=== PATIENT | male | born 1955 | race American Indian/Alaskan Native ===

== ENCOUNTER 2020-02-15 13:55 | Inpatient (IN) | payer MEDICARE ==
[2020-02-15] MEDS ORDERED: SODIUM CHLORIDE 0.9% 1000 ML 2,000 ML IV ONE (14:43)
[2020-02-15] MEDS ORDERED: fentaNYL 100 MCG/2 ML INJ IV ONE ×2 (14:44→16:19)
--- NOTE | 2020-02-15 14:44 | Emergency Department Report ---
ED General Adult HPI - General Chief complaint: Abdominal Pain Stated complaint: ABD PAIN PUI?: No Time Seen by Provider: 02/15/20 14:25 Source: patient, EMS ( EMS documentation not available at time of chart dictation ), RN notes reviewed, old records reviewed Mode of arrival: Stretcher Limitations: No Limitations - History of Present Illness Initial comments: Patient is a 64-year-old gentleman. He has a complicated past medical history. He has a known history of infrarenal aortic aneurysm with partial dissection. He also has a history of penile prosthesis. He had an outpatient CT scan of the abdomen pelvis performed recently, for nonspecific abdominal pain, which was a technically inadequate study, secondary to lack of IV contrast. He presents to the ER today with a complaint of diffuse abdominal pain, initially without nausea or vomiting.. He denies headache, neck pain, chest pain, shortness of breath, hematemesis, bright red blood per rectum. He also thinks that he is "constipated." He denies extremity weakness and or numbness. He reports decrease stool, but is passing gas intermittently. Symptoms present over the past few days, and gradually getting worse. He does not describe exacerbating or relieving factors. At the moment, he is not nauseous or vomiting. -: Gradual, days(s) Location: abdomen Severity scale (0 -10): 10 Consistency: constant Improves with: none Worsens with: none - Related Data Home Medications Medication Instructions Recorded Confirmed Last Taken AtorvaSTATin 40 mg PO QHS 02/15/20 02/15/20 Unknown Metoprolol Succinate 50 mg PO BID 02/15/20 02/15/20 Unknown Allergies Allergy/AdvReac Type Severity Reaction Status Date / Time No Known Allergies Allergy Unverified 07/16/18 09:51 ED Review of Systems ROS: Stated complaint: ABD PAIN Other details as noted in HPI Constitutional: weakness. denies: fever Eyes: denies: eye discharge ENT: denies: epistaxis Respiratory: denies: cough Cardiovascular: denies: chest pain Gastrointestinal: abdominal pain, constipation Genitourinary: denies: dysuria, testicular pain Musculoskeletal: denies: back pain Skin: denies: lesions Neurological: weakness Psychiatric: as per HPI Hematological/Lymphatic: as per HPI ED Past Medical Hx - Past Medical History Previous Medical History?: Yes Hx Hypertension: Yes Hx Congestive Heart Failure: No Hx Diabetes: No Hx Asthma: No Hx COPD: No Additional medical history: Constipation, Left eye prosthesis, Penile implant, aortic aneurysm repair - Surgical History Past Surgical History?: Yes Additional Surgical History: left eye surgery, Penile surgery, aortic aneurysm repair - Social History Smoking Status: Never Smoker Substance Use Type: None - Medications Home Medications: Home Medications Medication Instructions Recorded Confirmed Last Taken Type AtorvaSTATin 40 mg PO QHS 02/15/20 02/15/20 Unknown History Metoprolol Succinate 50 mg PO BID 02/15/20 02/15/20 Unknown History ED Physical Exam - General Limitations: No Limitations General appearance: alert, anxious - Head Head exam: Present: atraumatic, normocephalic - Eye Eye exam: Present: normal appearance, EOMI. Absent: nystagmus - ENT ENT exam: Present: normal exam, mucous membranes dry, normal external ear exam - Neck Neck exam: Present: normal inspection, full ROM. Absent: tenderness, meningismus - Respiratory Respiratory exam: Present: normal lung sounds bilaterally. Absent: respiratory distress, wheezes, rales, rhonchi, stridor - Cardiovascular Cardiovascular Exam: Present: tachycardia, irregular rhythm, normal heart sounds. Absent: systolic murmur, diastolic murmur, rubs, gallop - GI/Abdominal GI/Abdominal exam: Present: soft, distended, diminished bowel sounds. Absent: tenderness, guarding, rebound, rigid, pulsatile mass - Rectal Rectal exam: Present: deferred - Extremities Exam Extremities exam: Present: normal inspection, full ROM, other (2+ femoral pulses noted bilaterally. Weakened pulses noted in the bilateral upper and lower extremities. Pelvis is stable. No long bony tenderness. Delayed capillary refill). Absent: normal capillary refill (Delayed capillary refill), calf tenderness - Back Exam Back exam: Present: normal inspection, full ROM. Absent: tenderness, CVA tenderness (R), CVA tenderness (L), paraspinal tenderness, vertebral tenderness - Neurological Exam Neurological exam: Present: alert, other (No facial droop. Tongue midline. Extraocular movements intact bilaterally. Facial sensation intact to light touch in V1, V2, V3 distribution bilaterally. 5 and a 5 strength in 4 e xtremities. Sensation intact to light touch in 4 extremities.). Absent: motor sensory deficit - Psychiatric Psychiatric exam: Present: flat affect - Skin Skin exam: Present: warm, dry, intact, normal color. Absent: rash ED Course Vital Signs 02/15/20 02/15/20 02/15/20 14:31 15:32 16:00 Temperature 98.6 F Pulse Rate 110 H 81 87 Respiratory 24 13 21 Rate Blood Pressure 117/85 Blood Pressure 90/70 [Left] O2 Sat by Pulse 97 62 L Oximetry 02/15/20 02/15/20 02/15/20 16:30 16:40 16:50 Temperature Pulse Rate 75 74 90 Respiratory 28 H 15 15 Rate Blood Pressure 116/63 116/63 116/63 Blood Pressure [Left] O2 Sat by Pulse 100 Oximetry 02/15/20 02/15/20 02/15/20 17:00 17:10 17:20 Temperature Pulse Rate 79 82 85 Respiratory 15 24 16 Rate Blood Pressure 124/80 124/80 124/80 Blood Pressure [Left] O2 Sat by Pulse Oximetry 02/15/20 02/15/20 02/15/20 17:30 17:40 17:50 Temperature Pulse Rate 84 83 89 Respiratory 13 18 21 Rate Blood Pressure 126/90 126/90 126/90 Blood Pressure [Left] O2 Sat by Pulse 77 L Oximetry 02/15/20 02/15/20 02/15/20 18:00 18:10 18:20 Temperature Pulse Rate 77 86 83 Respiratory 15 19 16 Rate Blood Pressure 138/84 138/84 138/84 Blood Pressure [Left] O2 Sat by Pulse 93 Oximetry 02/15/20 02/15/20 02/15/20 18:30 18:40 18:41 Temperature Pulse Rate 83 80 83 Respiratory 18 14 18 Rate Blood Pressure 119/86 119/86 Blood Pressure 119/86 [Left] O2 Sat by Pulse Oximetry 02/15/20 02/15/20 02/15/20 18:50 19:00 19:10 Temperature Pulse Rate 79 80 79 Respiratory 23 18 11 L Rate Blood Pressure 119/86 116/88 116/88 Blood Pressure [Left] O2 Sat by Pulse 93 94 Oximetry 02/15/20 02/15/20 02/15/20 19:20 19:30 19:40 Temperature Pulse Rate 81 75 81 Respiratory 17 20 21 Rate Blood Pressure 116/88 125/84 125/84 Blood Pressure [Left] O2 Sat by Pulse 94 94 Oximetry 02/15/20 19:50 Temperature Pulse Rate 73 Respiratory 16 Rate Blood Pressure 125/84 Blood Pressure [Left] O2 Sat by Pulse 88 Oximetry - EJ/Peripheral Line Arm R Time Out Performed: Yes Indications: nurses unable to establis Skin Cleansed in Sterile Fashion: Yes Size: 20 Dressing Placed: Tegaderm Patient Tolerated Procedure: well ED Medical Decision Making - Lab Data Result diagrams: 02/16/20 05:26 02/17/20 08:02 Vital Signs 02/15/20 02/15/20 02/15/20 14:31 15:32 16:00 Temperature 98.6 F Pulse Rate 110 H 81 87 Respiratory 24 13 21 Rate Blood Pressure 117/85 Blood Pressure 90/70 [Left] O2 Sat by Pulse 97 62 L Oximetry Lab Results 02/15/20 02/15/20 02/15/20 Range/Units 15:45 15:45 15:45 PT TNR INR TNR APTT TNR Sodium 148 H (137-145) mmol/L Chloride 136.8 H (98-107) mmol/L BUN 9 (9-20) mg/dL Creatinine 0.2 L (0.8-1.5) mg/dL Estimated GFR > 60 ml/min BUN/Creatinine Ratio 45 % Lactic Acid 0.40 L (0.7-2.0) mmol/L Total Bilirubin < 0.20 (0.1-1.2) mg/dL Alkaline Phosphatase 6 L (35-129) units/L Total Protein 0.8 L (6.3-8.2) g/dL Albumin 0.5 L (3.9-5) g/dL Albumin/Globulin Ratio 1.7 % - EKG Data 02/15/20 17:08 EKG shows sinus rhythm, 76 bpm, normal axis, QTC is prolonged, left ventricular hypertrophy, and motion artifact. The EKG is abnormal. It is not a STEMI. There is no prior EKG available for my comparison - Radiology Data Radiology results: report reviewed, image reviewed Print Report Referring Physician: EMANUEL NORIEGA Patient Name: DARÍO SANTILLAN Date of : 1955 Sex: Male Report Date: 2020-02-15 Report Status: Finalized Findings [facility] [address] [place] [address] Cat Scan Report Signed Patient: DARÍO SANTILLAN MR#: [id number] : 1955 Acct:[id number] Age/Sex: 64 / M ADM Date: 02/15/20 Loc: ED Attending Dr: Ordering Physician: EMANUEL NORIEGA MD Date of Service: 02/15/20 Procedure(s): CT angio abdomen pelvis Accession Number(s): [id number] cc: EMANUEL NORIEGA MD CTA ABDOMEN AND PELVIS WITH IV CONTRAST INDICATION: History of aortic aneurysm, abdominal pain CONTRAST: 100 cc Omnipaque 300 IV COMPARISON: Partial images sets from CT abdomen and pelvis 07/17/2018 and CTA abdomen and pelvis 07/18/2018 Three-plane MIP reconstructions were produced. All CT scans at this location are performed using CT dose reduction for ALARA by means of automated exposure control. FINDINGS: Mild atelectasis and/or scarring is seen in the lung bases, more on the right. No pneumoperitoneum is seen. Interval revision of the penile prosthesis apparatus is noted with now a catheter and apparent balloon pump extending into the left lower lateral abdominal wall subcutaneous tissues. In this subcutaneous area adjacent to the device is a somewhat serpiginous fluid collection which is presumably part of the inflation balloon. Though somewhat resembling a loop of bowel shape, I do not see a definite herniation of bowel through this area. No urinary obstructive changes are seen. No masses are obvious. Gallbladder and bile ducts appear within normal limits. No free fluid is seen. The lower abdominal aortic aneurysm and dissection is now less prominent and there are interval surgical changes in this area. The dissection is similar in appearance and less extensive and the prominent saccular aneurysm which measured up to a diameter of 7 cm previously now shows a maximal diameter of 3.9 cm. The tortuous and ectatic common iliac arteries are again seen similar to prior study with flow seen more distally in the iliac system though tapering inferiorly, thought likely due to the phase of contrast in this very early contrast phase with significant contrast left in the heart at this point. I do not see extravasation or other obvious acute abnormality of the aorta or vascular structures. Good opacification of the major aortic branches is seen without obvious significant stenosis though there is mild narrowing of the proximal portion of the left renal artery. Left renal artery shows a small accessory artery as well. The mesenteric vessels appear well opacified. The stomach is prominently dilated with fluid, food, and air, predominantly fluid. There is prominent dilatation of the proximal half of the small bowel with air- fluid levels seen. Distal small bowel loops are not dilated. Colon is mostly decompressed. Pattern is consistent with high-grade small bowel obstruction of u nclear source. The rectum may show mild wall edema as can be seen with proctitis and was not obvious previously. No evidence of perforation or abscess is seen. IMPRESSION: 1. Significant improvement in appearance of the lower abdominal aortic dissection and saccular aneurysm with interval surgical change. No acute aortic abnormality is seen. 2. Evidence of high-grade mid level small bowel obstruction 3. Interval surgical changes in the pelvis as above. The subcutaneous fluid collection presumably relates to a balloon apparatus with fluid for the penile pump. 4. Question of mild proctitis Discussed with Dr. Noriega Signer Name: Richard Friend MD Signed: 02/15/2020 4:43 PM Workstation Name: [id number] Transcribed By: JAIRO Dictated By: Richard Friend MD Electronically Authenticated By: Richard Friend MD Signed Date/Time: 02/15/20 1643 DD/ 1632 TD/TT: - Medical Decision Making Differential diagnosis, including but not limited to: Aortic dissection, AAA, obstruction Assessment and plan: 64-year-old gentleman with complex abdominal surgical history, presenting with abdominal pain, initially hypotensive, blood pressure in the 90s, initially tachycardic on my exam, heart rate in the 130s, with thready pulses. We were initially very concerned about aortic catastrophe. Therefore, we recommended emergent CT angiogram of the abdomen pelvis to further evaluate. Risks, benefits, alternatives discussed with patient extensively. He gave verbal consent for emergent CT scan with IV contrast to evaluate for aortic catastrophe. I specifically counseled the patient about the risks of renal insufficiency, and possible need for hemodialysis downstream, however, I also advised patient that given his initial hypotension, thready pulses, hemodynamic instability initially, we needed to obtain expedited and definitive diagnostic imaging. Therefore, the patient provided verbal and written consent for CT angiogram with IV contrast. This was witnessed by multiple ER staff members, including Mr. Arnoldo Romero. Fortunately, no aortic emergent condition was noted. However, he was noted to have a high-grade small bowel obstruction. In addition, he is now actively vomiting. We will treat his symptoms with fluids, pain medication, and nausea medication. Advised patient that we would recommend admission to the hospital for supportive care. Contacted general surgery on-call, Dr. Escalera, discussed the patient's history, physical, and pertinent imaging studies. Nasogastric tube to be ordered. Discussed findings with patient, who verbalized understanding. He states he is amenable to hospitalization. Hospital physician, Dr. Darnell to admit patient to the medical service. He was found to have renal insufficiency, likely multifactorial. Contacted nephrology on-call, Dr. Randall, his group will follow in consultation. Critical Care Time: Yes Critical care time in (mins) excluding proc time.: 35 Critical care attestation.: If time is entered above; I have spent that time in minutes in the direct care of this critically ill patient, excluding procedure time. Critical Care Time: Critical care time includes multiple bedside re-evaluations, interpretation of laboratory studies, current radiology studies, prior radiology studies, discussion with multiple consulting services, including general surgery, hospital medicine, and nephrology. This does not include procedure time. ED Disposition Clinical Impression: SBO (small bowel obstruction), Renal insufficiency, Hypokalemia Disposition: OP ADMIT IP TO THIS HOSP Is pt being admited?: Yes Does the pt Need Aspirin: No Condition: Serious
[2020-02-15] MEDS ORDERED: MORPHINE 4 MG/1 ML INJ IV ONE (16:05)
[2020-02-15] MEDS ORDERED: LIDOCAINE (4%) 40 MG/ML TOPICAL SOLN 50 ML BOTTLE TP ONE (16:06)
[2020-02-15] MEDS ORDERED: LIDOCAINE VISCOUS 2% 15 ML ORAL LIQD PO ONE (16:06)
[2020-02-15 16:20] LABS: INR TNR (0.87-1.13); Partial Thromboplastin Time TNR Sec. (24.2-36.6)
[2020-02-15] MEDS ORDERED: ONDANSETRON 4 MG/2 ML INJ IV ONE (16:38)
--- NOTE | 2020-02-15 16:48 | Cat Scan Report ---
CTA ABDOMEN AND PELVIS WITH IV CONTRAST INDICATION: History of aortic aneurysm, abdominal pain CONTRAST: 100 cc Omnipaque 300 IV COMPARISON: Partial images sets from CT abdomen and pelvis 07/17/2018 and CTA abdomen and pelvis 07/07 Three-plane MIP reconstructions were produced. All CT scans at this location are performed using CT d ose reduction for ALARA by means of automated exposure control. FINDINGS: Mild atelectasis and/or scarring is seen in the lung bases, more on the right. No pneumoper itoneum is seen. Interval revision of the penile prosthesis apparatus is noted with now a catheter an d apparent balloon pump extending into the left lower lateral abdominal wall subcutaneous tissues. In this subcutaneous area adjacent to the device is a somewhat serpiginous fluid collection which is pr esumably part of the inflation balloon. Though somewhat resembling a loop of bowel shape, I do not se e a definite herniation of bowel through this area. No urinary obstructive changes are seen. No masses are obvious. Gallbladder and bile ducts appear wit hin normal limits. No free fluid is seen. The lower abdominal aortic aneurysm and dissection is now less prominent and there are interval surgi sun changes in this area. The dissection is similar in appearance and less extensive and the prominen t saccular aneurysm which measured up to a diameter of 7 cm previously now shows a maximal diameter o f 3.9 cm. The tortuous and ectatic common iliac arteries are again seen similar to prior study with f low seen more distally in the iliac system though tapering inferiorly, thought likely due to the phas e of contrast in this very early contrast phase with significant contrast left in the heart at this p oint. I do not see extravasation or other obvious acute abnormality of the aorta or vascular structur es. Good opacification of the major aortic branches is seen without obvious significant stenosis thou gh there is mild narrowing of the proximal portion of the left renal artery. Left renal artery shows a small accessory artery as well. The mesenteric vessels appear well opacified. The stomach is prominently dilated with fluid, food, and air, predominantly fluid. There is prominent dilatation of the proximal half of the small bowel with air-fluid levels seen. Distal small bowel lo ops are not dilated. Colon is mostly decompressed. Pattern is consistent with high-grade small bowel obstruction of unclear source. The rectum may show mild wall edema as can be seen with proctitis and was not obvious previously. No evidence of perforation or abscess is seen. IMPRESSION: 1. Significant improvement in appearance of the lower abdominal aortic dissection and saccular aneury sm with interval surgical change. No acute aortic abnormality is seen. 2. Evidence of high-grade mid level small bowel obstruction 3. Interval surgical changes in the pelvis as above. The subcutaneous fluid collection presumably rel ates to a balloon apparatus with fluid for the penile pump. 4. Question of mild proctitis Discussed with Dr. Noriega Signer Name: Richard Friend MD Signed: 02/15/2020 4:43 PM Workstation Name: [id number]
[2020-02-15 16:56] LABS: Hemoglobin 15.3 gm/dl (11.8-15.2); Mean Corpuscular HGB Conc 35 % (32-34); Mean Corpuscular Volume 98 fl (84-94); Platelet Count 132 K/mm3 (140-440); Red Cell Distribution Width 13.2 % (13.2-15.2)
[2020-02-15 17:02] LABS: Blood Urea Nitrogen TNR mg/dL (9-20)
[2020-02-15 17:03] LABS: Alanine Aminotransferase TNR units/L (7-56); Albumin TNR g/dL (3.9-5); BUN/Creatinine Ratio TNR; Calcium TNR mg/dL (8.4-10.2); Hemolysis Index TNR
[2020-02-15 17:07] LABS: Calcium 8.6 mg/dL (8.4-10.2)
[2020-02-15 17:08] LABS: INR 1.47 (0.87-1.13)
[2020-02-15 17:09] LABS: Partial Thromboplastin Time 25.7 Sec. (24.2-36.6)
[2020-02-15] MEDS ORDERED: POTASSIUM CHLORIDE ER 20 MEQ TAB PO ONE (17:13)
[2020-02-15] MEDS ORDERED: SODIUM CHLORIDE 0.9% 1000 ML 1,000 ML IV ONE (17:14)
[2020-02-15 17:23] LABS: Albumin 3.7 g/dL (3.9-5); Bilirubin,Direct 0.3 mg/dL (0-0.2)
--- NOTE | 2020-02-15 18:29 | Consultation ---
History of Present Illness Consult date: 02/15/20 Reason for consult: abdominal pain Requesting physician: EMANUEL VARGAS Chief complaint: abdominal pain - History of present illness History of present illness: 64yo M with multiple medical issues presents from the primary care physician's office with complaints of abdominal pain, nausea and vomiting. Evaluation emergency department revealed a small bowel obstruction. General surgery was consulted. Patient reports that for the last few days he has had difficulty with crampy abdominal pain, nausea and vomiting. He has been passing small amounts of flatus and stool. He passed flatus and stool yesterday. He went to his primary care's office for evaluation. They recommended that he come to the emergency room for further evaluation. Now that he is received some medicine and the NG tube, he is feeling much better. Pain has resolved. Patient surgical history is significant for an open aortic aneurysm repair at [place] approximately 4 years ago. In September 2019, he had surgery in [place] to place a penile implant that was subsequently moved and a left inguinal hernia repair (open) was performed. There were no complications. Past History Past Medical History: hypertension, PVD Past Surgical History: abd. aortic aneurysm repair, hernia repair (LI[facility] (open)), Other (penile implant) Social history: smoking. denies: alcohol abuse Family history: no significant family history Medications and Allergies Allergies Allergy/AdvReac Type Severity Reaction Status Date / Time No Known Allergies Allergy Unverified 07/16/18 09:51 Home Medications Medication Instructions Recorded Confirmed Last Taken Type Valsartan [Diovan] 80 mg PO DAILY 07/16/18 07/16/18 07/16/18 History Active Meds: Active Medications Potassium Chloride (Kcl 10meq/100ml) 10 meq in 100 mls @ 100 mls/hr IV Q1H BULL Stop: 02/15/20 19:59 Review of Systems - Constitutional weakness, no fever, no chills, no chronic pain - Cardiovascular no chest pain, no shortness of breath - Respiratory no cough - Gastrointestinal abdominal pain, nausea, vomiting, change in bowel habits - Genitourinary no dysuria - Muskuloskeletal no low back pain - Integumentary no rash, no sores, no wounds Exam Vital Signs Temp Pulse Resp BP Pulse Ox 98.6 F 110 H 24 90/70 97 02/15/20 14:31 02/15/20 14:31 02/15/20 14:31 02/15/20 14:31 02/15/20 14:31 - General physical appearance Positive: well developed, well nourished, no distress, no pain, other (pleasant, elderly gentleman) - Eyes Positive: normal occular movement - Respiratory Positive: normal expansion, normal respiratory effort, clear to auscultation - Cardiovascular Rhythm: regular - Abdomen Abdomen: Present: soft, bowel sounds hypoactive (fluid filled sounds), distended (minimal), surgical scars (well healed). Absent: tender, guarding, rigid, wound Hernia: none - Integumentary no rash, no growths, no abnormal pigmentation - Neurologic Neurologic: alert and oriented to time, place and person, motor strength and sensation are grossly intact - Psychiatric Psychiatric: appropriate mood/affect, intact judgment & insight, cooperative Results - Labs 02/15/20 16:31 02/15/20 16:31 Abnormal lab results 02/15/20 02/15/20 02/15/20 Range/Units 15:45 16:31 16:31 Hgb 15.3 H (11.8-15.2) gm/dl MCV 98 H (84-94) fl MCH 34 H (28-32) pg MCHC 35 H (32-34) % Plt Count 132 L (140-440) K/mm3 PT (12.2-14.9) Sec. INR (0.87-1.13) Sodium 135 L (137-145) mmol/L Potassium 3.0 L (3.6-5.0) mmol/L Chloride 93.8 L (98-107) mmol/L BUN 46 H (9-20) mg/dL Creatinine 2.3 H (0.8-1.5) mg/dL Glucose 107 H (75-100) mg/dL Lactic Acid 0.40 L (0.7-2.0) mmol/L Direct Bilirubin (0-0.2) mg/dL Albumin (3.9-5) g/dL 02/15/20 02/15/20 Range/Units 16:31 16:31 Hgb (11.8-15.2) gm/dl MCV (84-94) fl MCH (28-32) pg MCHC (32-34) % Plt Count (140-440) K/mm3 PT 17.5 H (12.2-14.9) Sec. INR 1.47 H (0.87-1.13) Sodium (137-145) mmol/L Potassium (3.6-5.0) mmol/L Chloride (98-107) mmol/L BUN (9-20) mg/dL Creatinine (0.8-1.5) mg/dL Glucose (75-100) mg/dL Lactic Acid (0.7-2.0) mmol/L Direct Bilirubin 0.3 H (0-0.2) mg/dL Albumin 3.7 L (3.9-5) g/dL Diabetes panel 02/15/20 02/15/20 02/15/20 Range/Units 15:45 16:31 16:31 Sodium TNR 135 L Potassium TNR 3.0 L Chloride TNR 93.8 L Carbon Dioxide TNR 24 BUN TNR 46 H Creatinine TNR 2.3 H Glucose TNR 107 H Calcium TNR 8.6 AST TNR 19 ALT TNR 12 Alkaline Phosphatase TNR 63 Total Protein TNR 6.9 Albumin TNR 3.7 L Calcium panel 02/15/20 02/15/20 02/15/20 Range/Units 15:45 16:31 16:31 Calcium TNR 8.6 Albumin TNR 3.7 L Pituitary panel 02/15/20 02/15/20 Range/Units 15:45 16:31 Sodium TNR 135 L Potassium TNR 3.0 L Chloride TNR 93.8 L Carbon Dioxide TNR 24 BUN TNR 46 H Creatinine TNR 2.3 H Glucose TNR 107 H Calcium TNR 8.6 Adrenal panel 02/15/20 02/15/20 02/15/20 Range/Units 15:45 16:31 16:31 Sodium TNR 135 L Potassium TNR 3.0 L Chloride TNR 93.8 L Carbon Dioxide TNR 24 BUN TNR 46 H Creatinine TNR 2.3 H Glucose TNR 107 H Calcium TNR 8.6 Total Bilirubin TNR 0.90 AST TNR 19 ALT TNR 12 Alkaline Phosphatase TNR 63 Total Protein TNR 6.9 Albumin TNR 3.7 L - Imaging CT scan - abdomen: report reviewed, image reviewed CT scan - pelvis: report reviewed, image reviewed Assessment and Plan - Patient Problems (1) SBO (small bowel obstruction) Current Visit: Yes Status: Acute Plan to address problem: Pt stable. He is currently asymptomatic. Vital signs are normal. The CT does have a concerning appearance, but his exam is benign at this time. Therefore, we will take the opportunity to resuscitate him (BUN/Cr elevated compared to last check in 2018) and decompress the GI tract with the NG tube. I advised him to let us know if he has worsening abdominal pain as this may necessitate us going for surgery. Recommendations: 1. NG tube decompression and n.p.o. 2. IV fluid resuscitation 3. Abdominal x-ray in the morning 4. Serial abdominal exams We will follow along. Please call with any questions. Time=30min
--- NOTE | 2020-02-15 18:29 | History and Physical Report ---
History of Present Illness Chief complaint: I have pain in my stomach History of present illness: 64 YO Male with HTN, AAA S/P Repair, Chronic Constipation presents to ED for evaluation. Patient states that he has experienced abdominal pain over the last 3 days. Patient states that his pain is currently 10/10, crampy, associated with nausea and multiple episodes of vomiting. Patient underwent a CT scan of the abdomen and pelvis as an outpatient on yesterday and presented to his primary care physician's office today to review results. Patient was seen and evaluated by his primary care physician and instructed to seek further care. EMS notified and the patient was subsequently transported to [facility] for further evaluation and care. Patient seen and evaluated in the emergency department. Lab and imaging studies were reviewed. Patient found to have evidence of a small bowel obstruction. Surgical team consulted in ED. Patient underwent placement of an NG tube for gastric decompression. Patient admitted to surgical floor due to increased risk of decompensation. Patient denies fever, chills, chest pain, palpitation, productive cough, skin rash, recent ill contact, hematemesis, bright red blood per rectum, melena, ingestion of food/water from new or different sources. Prior admission on 07/16/2018 reviewed. All medication listed at time of admission has been reconciled. Advanced care planning conducted in the emergency department. Past History Past Medical History: hypertension, other (See HPI) Past Surgical History: Other (left eye surgery, Penile surgery, aortic aneurysm repair) Social history: single. denies: smoking, alcohol abuse, prescription drug abuse Family history: hypertension Medications and Allergies Allergies Allergy/AdvReac Type Severity Reaction Status Date / Time No Known Allergies Allergy Unverified 07/16/18 09:51 Home Medications Medication Instructions Recorded Confirmed Last Taken Type Valsartan [Diovan] 80 mg PO DAILY 07/16/18 07/16/18 07/16/18 History Active Meds: Active Medications Potassium Chloride (Kcl 10meq/100ml) 10 meq in 100 mls @ 100 mls/hr IV Q1H BULL Stop: 02/15/20 19:59 Review of Systems Constitutional: no weight loss, no weight gain, no fever, no chills Ears, nose, mouth and throat: no ear pain, no ear discharge, no tinnitis, no decreased hearing, no nasal congestion, no nasal discharge Cardiovascular: no chest pain, no orthopnea, no palpitations, no rapid/irregular heart beat, no edema, no syncope, no lightheadedness Respiratory: no cough, no cough with sputum, no excessive sputum, no shortness of breath, no dyspnea on exertion Gastrointestinal: abdominal pain, nausea, vomiting, no diarrhea, no constipation, no change in bowel habits, no hematemesis, no coffee ground emesis, no BRBPR, no melena, no hematochezia Genitourinary Male: no hematuria, no flank pain, no discharge, no urinary frequency, no urinary hesitancy Rectal: no pain, no incontinence, no bleeding Musculoskeletal: no neck stiffness, no neck pain, no shooting arm pain, no arm numbness/tingling, no low back pain Integumentary: no rash, no pruritis, no redness, no sores, no wounds, no jaundice Neurological: no transient paralysis, no paralysis, no weakness, no parathesias, no numbness, no tingling, no seizures, no syncope Psychiatric: no anxiety, no memory loss, no change in sleep habits, no sleep disturbances, no insomnia, no hypersomnia, no change in libido, no disorientation Endocrine: no cold intolerance, no heat intolerance, no excessive sweating, no flushing Hematologic/Lymphatic: no easy bruising, no easy bleeding, no lymphadenopathy Allergic/Immunologic: no urticaria, no allergic rhinitis, no persistent infections, no anaphylaxis, no angioedema Exam - Constitutional Vitals: Temp Pulse Resp BP Pulse Ox 98.6 F 87 21 117/85 62 L 02/15/20 14:31 02/15/20 16:00 02/15/20 16:00 02/15/20 16:00 02/15/20 15:32 General appearance: Present: mild distress - EENT Eyes: Present: PERRL ENT: hearing intact, clear oral mucosa - Neck Neck: Present: supple, normal ROM - Respiratory Respiratory effort: normal Respiratory: bilateral: CTA - Cardiovascular Heart Sounds: Present: S1 & S2. Absent: rub, click - Extremities Extremities: pulses symmetrical, No edema Peripheral Pulses: within normal limits - Abdominal General gastrointestinal: Present: soft, non-tender, tender, normal bowel sounds. Absent: hepatomegaly, splenomegaly Male genitourinary: Present: normal - Integumentary Integumentary: Present: clear, warm, dry - Musculoskeletal Musculoskeletal: gait normal, strength equal bilaterally - Psychiatric Psychiatric: appropriate mood/affect, intact judgment & insight - Neurologic Neurologic: CNII-XII intact, moves all extremities Results - Labs CBC & Chem 7: 02/15/20 16:31 02/15/20 16:31 Labs: Abnormal lab results 02/15/20 02/15/20 02/15/20 Range/Units 15:45 16:31 16:31 Hgb 15.3 H (11.8-15.2) gm/dl MCV 98 H (84-94) fl MCH 34 H (28-32) pg MCHC 35 H (32-34) % Plt Count 132 L (140-440) K/mm3 PT (12.2-14.9) Sec. INR (0.87-1.13) Sodium 135 L (137-145) mmol/L Potassium 3.0 L (3.6-5.0) mmol/L Chloride 93.8 L (98-107) mmol/L BUN 46 H (9-20) mg/dL Creatinine 2.3 H (0.8-1.5) mg/dL Glucose 107 H (75-100) mg/dL Lactic Acid 0.40 L (0.7-2.0) mmol/L Direct Bilirubin (0-0.2) mg/dL Albumin (3.9-5) g/dL 02/15/20 02/15/20 Range/Units 16:31 16:31 Hgb (11.8-15.2) gm/dl MCV (84-94) fl MCH (28-32) pg MCHC (32-34) % Plt Count (140-440) K/mm3 PT 17.5 H (12.2-14.9) Sec. INR 1.47 H (0.87-1.13) Sodium (137-145) mmol/L Potassium (3.6-5.0) mmol/L Chloride (98-107) mmol/L BUN (9-20) mg/dL Creatinine (0.8-1.5) mg/dL Glucose (75-100) mg/dL Lactic Acid (0.7-2.0) mmol/L Direct Bilirubin 0.3 H (0-0.2) mg/dL Albumin 3.7 L (3.9-5) g/dL Assessment and Plan - Patient Problems (1) SBO (small bowel obstruction) Current Visit: Yes Status: Acute Plan to address problem: CT scan abdomen and pelvis results reviewed, surgical team consulted in ED, NG tube for gastric decompression, serial abdominal exam, bowel rest, IV fluid resuscitation, supportive care. (2) HTN (hypertension) Current Visit: No Status: Chronic Qualifiers: Hypertension type: essential hypertension Qualified Code(s): I10 - Essential (primary) hypertension Plan to address problem: Monitor blood pressure every shift, pain control, supportive care. (3) DVT prophylaxis Current Visit: No Status: Acute Plan to address problem: SCD to bilateral lower extremities while in bed, patient is ambulatory. (4) Advance care planning Current Visit: Yes Status: Acute Plan to address problem: Disease education conducted, patient knowledges understanding and agreement with care plan, patient is full code, +30 minutes.
[2020-02-15] MEDS: POTASSIUM CHLORIDE 10 MEQ 10 MEQ/100 ML BAG IV SCH ×2 (18:45→19:55)
[2020-02-15] MEDS ORDERED: ACETAMINOPHEN 325 MG TAB PO PRN (18:53)
[2020-02-15] MEDS ORDERED: ONDANSETRON 4 MG/2 ML INJ IV PRN (18:53)
[2020-02-15] MEDS ORDERED: ALBUTEROL 2.5 MG/3 ML NEBU IH PRN (18:53)
[2020-02-15] MEDS ORDERED: MORPHINE 2 MG/1 ML INJ IV PRN (18:53)
[2020-02-15] MEDS ORDERED: hydrALAZINE 20 MG/1 ML INJ IV PRN (18:55)
[2020-02-15] MEDS ORDERED: POTASSIUM CHLORIDE 10 MEQ 10 MEQ/100 ML BAG IV ONE (19:54)
[2020-02-15] MEDS ORDERED: SODIUM CHLORIDE 0.9% 1000 ML 1,000 ML ONE (20:12)
--- NOTE | 2020-02-15 21:20 | Consultation ---
History of Present Illness - Reason for Consult Consult date: 02/15/20 acute renal failure - History of Present Illness The patient is a 64 YO male with history significant for Hypertension, AAA and erectile dysfunction s/p penile implant who presented to [facility] ED 02/14 from the primary care physician's office with complaints of abdominal pain, nausea and vomiting for the past 3 days. He has several episodes of non-bloody non-bilious vomiting and associated with constipation. He went to his primary care's office for evaluation. They recommended that he come to the emergency room for further evaluation. Evaluation emergency department revealed a small bowel obstruction. General surgery was consulted. Initial BP was 90/70. Labs significant for Creat 2.3, BUN 46 and K 3. In 2018 his creatinine was normal. Nephrology was consulted for further evaluation. Past History Past Medical History: hypertension, hyperlipidemia, PVD, other (See HPI.) Past Surgical History: abd. aortic aneurysm repair, hernia repair (LIH (open)), Other (penile implant) Social history: smoking. denies: alcohol abuse Family history: no significant family history Medications and Allergies Allergies Allergy/AdvReac Type Severity Reaction Status Date / Time No Known Allergies Allergy Unverified 07/16/18 09:51 Home Medications Medication Instructions Recorded Confirmed Last Taken Type AtorvaSTATin 40 mg PO QHS 02/15/20 02/15/20 Unknown History Metoprolol Succinate 50 mg PO BID 02/15/20 02/15/20 Unknown History Active Meds: Active Medications Acetaminophen (Tylenol) 650 mg PO Q4H PRN PRN Reason: Pain MILD(1-3)/Fever >100.5/AMIN Albuterol (Proventil) 2.5 mg IH Q4HRT PRN PRN Reason: Shortness Of Breath Hydralazine HCl (Apresoline) 10 mg IV Q6HR PRN PRN Reason: Hypertension Sodium Chloride (Nacl 0.9% 1000 Ml) 1,000 mls @ 100 mls/hr IV DIRECT BULL Morphine Sulfate (Morphine) 2 mg IV Q4H PRN PRN Reason: Pain, Moderate (4-6) Ondansetron HCl (Zofran) 4 mg IV Q8H PRN PRN Reason: Nausea And Vomiting Sodium Chloride (Sodium Chloride Flush Syringe 10 Ml) 10 ml IV BID BULL Sodium Chloride (Sodium Chloride Flush Syringe 10 Ml) 10 ml IV PRN PRN PRN Reason: LINE FLUSH Review of Systems Constitutional: weight loss, anorexia, fatigue, no weight gain, no fever, no chills Cardiovascular: high blood pressure, no chest pain, no orthopnea, no edema, no syncope, no lightheadedness, no shortness of breath, no leg edema Respiratory: no cough, no hemoptysis, no shortness of breath, no dyspnea on exertion Gastrointestinal: abdominal pain, nausea, vomiting, constipation, no diarrhea, no hematemesis, no melena, no hematochezia Genitourinary Male: no dysuria, no hematuria Rectal: no bleeding Integumentary: no rash Neurological: no convulsions, no aphasia, no change in speech, no change in mentation, no confusion Exam - Vital Signs Vital signs: Vital Signs Temp Pulse Resp BP Pulse Ox 98.6 F 110 H 24 90/70 97 02/15/20 14:31 02/15/20 14:31 02/15/20 14:31 02/15/20 14:31 02/15/20 14:31 - General Appearance General appearance: well-developed, appears stated age, other (no tin distress, NGT ) EENT: ATNC, PERRL, mucous membranes dry, hearing intact, vision intact Neck: Present: neck supple, trachea midline Respiratory: Clear to Ascultation Heart: regular, S1S2, no murmurs Gastrointestinal: Present: normoactive bowel sounds. Absent: tenderness, distended Integumentary: no rash, warm and dry Neurologic: no focal deficit, no asterixis, alert and oriented x3 Musculoskeletal: Present: other (no edema) Psychiatric: cooperative Results - Lab Results 02/15/20 16:31 02/15/20 16:31 Most recent lab results Calcium 8.6 mg/dL (8.4-10.2) 02/15/20 16:31 Magnesium 2.10 mg/dL (1.7-2.3) 02/15/20 16:31 - Image Kidney/bladder ultrasound: other Assessment and Plan 1. Acute kidney injury: Vasomotor FAN in setting of volume depletion. Previously normal renal function. CT abdomen was negative for hydro. Urine studies ordered. Patient also received IV contrast. Continue IV fluids. Monitor renal function. Renal prognosis is guarded. Avoid nephrotoxic agents. Meds dosage based on GFR. 2. FEN: Hypokalemia, replete K. Monitor lytes and volume status. 3. SBO (small bowel obstruction): General Surgery consulted. NG tube decompression. IV fluids. 4. Hypertension: Follow BP, was low. 5. H/o AAA repair.
[2020-02-15] MEDS: SODIUM CHLORIDE 0.9% 1000 ML 1,000 ML IV SCH (22:56)
[2020-02-16 06:22] LABS: Hematocrit 43.5 % (35.5-45.6); Hemoglobin 14.9 gm/dl (11.8-15.2); Mean Corpuscular HGB Conc 34 % (32-34); Mean Corpuscular Volume 97 fl (84-94); Platelet Count 122 K/mm3 (140-440); Red Blood Count 4.49 M/mm3 (3.65-5.03); Red Cell Distribution Width 13.7 % (13.2-15.2)
[2020-02-16 06:43] LABS: Albumin 3.4 g/dL (3.9-5); Calcium 8.2 mg/dL (8.4-10.2)
--- NOTE | 2020-02-16 08:06 | XRay Report ---
ABDOMEN 1 VIEW(S) INDICATION / CLINICAL INFORMATION: f/u on SBO status. COMPARISON: CT abdomen pelvis 02/15/2020 FINDINGS: TUBES / LINES: Nasogastric tube sidehole in distal tip terminating in the fundus of the stomach. BOWEL GAS PATTERN: Small bowel dilatation has decreased by 50% since nasogastric tube placement. Mild small bowel dilatation persists. There is trace gas and stool in the colon. Multiple surgical clips are noted in the epigastric region, correlate with surgical history. FREE AIR / EXTRALUMINAL GAS: None seen. ADDITIONAL FINDINGS: No significant additional findings. IMPRESSION: 50% improvement in the small bowel obstruction pattern since nasogastric tube placement. Signer Name: Adonis Smith Jr, MD Signed: 02/16/2020 8:01 AM Workstation Name: [id number]
[2020-02-16 08:48] LABS: Anisocytosis 1+; Basophils % (Manual) 0 % (0.0-1.8); Burr Cells 1+; Platelet Estimate Consistent w Auto; Poikilocytosis 1+; Total Cells Counted 100
--- NOTE | 2020-02-16 08:58 | Progress Note ---
Assessment and Plan 1. Acute kidney injury: Vasomotor FAN in setting of volume depletion. Previously normal renal function. CT abdomen was negative for hydro. Urine studies ordered. Patient also received IV contrast. Continue IV fluids. Creatinine is 1.7 from 2.3. Monitor renal function. Renal prognosis is guarded. Avoid nephrotoxic agents. Meds dosage based on GFR. 2. FEN: Hypokalemia, replete K as needed. Monitor lytes and volume status. 3. SBO (small bowel obstruction): Followed by General Surgery. NG tube decompression. IV fluids. 4. Hypertension: Follow BP, was low. 5. H/o AAA repair. Objective: Patient was seen and examined at the bedside. Doing better today. Examination: General appearance: well-developed, appears stated age, no distress HEENT: atraumatic Neck: neck supple, trachea midline Respiratory: ctab Heart: regular, normal heart rate, S1S2, no murmur Gastrointestinal: soft, bowel sounds present, not tender, L LQ mass noted Integumentary: no rash, warm and dry Neurologic: non-focal, AOX4 Ext: no edema : pinzon present Subjective Date of service: 02/16/20 Objective - Vital Signs Vital signs: Vital Signs - 12hr 02/15/20 02/15/20 02/15/20 21:17 21:45 23:44 Temperature 98.4 F 98.1 F Pulse Rate 84 74 Respiratory 17 18 Rate Blood Pressure Blood Pressure 125/84 134/95 [Left] O2 Sat by Pulse 99 94 95 Oximetry 02/15/20 02/16/20 02/16/20 23:58 05:39 05:58 Temperature 98.8 F 99.5 F Pulse Rate 80 81 73 Respiratory 18 18 Rate Blood Pressure 129/86 118/80 119/82 Blood Pressure [Left] O2 Sat by Pulse 99 97 Oximetry 02/16/20 07:21 Temperature 98.6 F Pulse Rate 66 Respiratory 21 Rate Blood Pressure 117/81 Blood Pressure [Left] O2 Sat by Pulse 97 Oximetry - Lab 02/16/20 05:26 02/17/20 04:42 Most recent lab results Calcium 8.2 mg/dL (8.4-10.2) L 02/16/20 05:26 Phosphorus 3.40 mg/dL (2.5-4.5) 02/16/20 05:26 Magnesium 2.10 mg/dL (1.7-2.3) 02/16/20 05:26 Medications & Allergies - Medications Allergies/Adverse Reactions: Allergies No Known Allergies Allergy (Unverified 07/16/18 09:51) Home Medications: Home Medications Medication Instructions Recorded Confirmed Last Taken Type AtorvaSTATin 40 mg PO QHS 02/15/20 02/15/20 Unknown History Metoprolol Succinate 50 mg PO BID 02/15/20 02/15/20 Unknown History Active Medications: Generic Name Dose Route Start Last Admin Trade Name Freq PRN Reason Stop Dose Admin Acetaminophen 650 mg 02/15/20 18:53 Tylenol PO Q4H PRN Pain MILD(1-3)/Fever >100.5/AMIN Albuterol 2.5 mg 02/15/20 18:53 Proventil IH Q4HRT PRN Shortness Of Breath Hydralazine HCl 10 mg 02/15/20 18:55 Apresoline IV Q6HR PRN Hypertension Sodium Chloride 1,000 mls @ 100 mls/hr 02/15/20 19:00 02/15/20 22:56 Nacl 0.9% 1000 Ml IV 100 mls/hr DIRECT BULL Administration Morphine Sulfate 2 mg 02/15/20 18:53 Morphine IV Q4H PRN Pain, Moderate (4-6) Ondansetron HCl 4 mg 02/15/20 18:53 Zofran IV Q8H PRN Nausea And Vomiting Sodium Chloride 10 ml 02/15/20 22:00 02/15/20 22:55 Sodium Chloride Flush Syringe 10 Ml IV 10 ml BID BULL Administration Sodium Chloride 10 ml 02/15/20 18:53 Sodium Chloride Flush Syringe 10 Ml IV PRN PRN LINE FLUSH
--- NOTE | 2020-02-16 10:16 | Progress Note ---
Assessment and Plan - Patient Problems (1) SBO (small bowel obstruction) Current Visit: Yes Status: Acute Plan to address problem: Pt stable. Patient feeling much better. X-ray is much improved. Exam is benign. Would continue with NG tube decompression for now. Encourage patient to ambulate. Continue n.p.o. status. Recommendations: 1. Continue NG tube decompression 2. Ambulate 3. Serial abdominal x-rays in the morning 4. Serial abdominal exams. We will follow along. Please call with any questions. Time=10min Subjective Date of service: 02/16/20 Patient Reports: Positive: no new complaints, feels better, pain is less, flatus, no bowel movement. Negative: nausea Objective Vital Signs - 12hr 02/15/20 02/15/20 02/16/20 23:44 23:58 05:39 Temperature 98.8 F 99.5 F Pulse Rate 80 81 Respiratory 18 18 Rate Blood Pressure 129/86 118/80 O2 Sat by Pulse 95 99 97 Oximetry 02/16/20 02/16/20 05:58 07:21 Temperature 98.6 F Pulse Rate 73 66 Respiratory 21 Rate Blood Pressure 119/82 117/81 O2 Sat by Pulse 97 Oximetry - General physical appearance no distress, no pain, other (looks better) - ENT other (NGT with small amount of bilious fluid in canister) - Respiratory normal expansion, normal respiratory effort - Abdomen soft, not tender, not distended - Integumentary no rash, no growths, no abnormal pigmentation - Psychiatric oriented to time, oriented to person, oriented to place, speech is normal, memory intact - Labs 02/16/20 05:26 02/16/20 05:26 Diabetes panel 02/15/20 02/15/20 02/15/20 Range/Units 15:45 16:31 16:31 Sodium TNR 135 L Potassium TNR 3.0 L Chloride TNR 93.8 L Carbon Dioxide TNR 24 BUN TNR 46 H Creatinine TNR 2.3 H Glucose TNR 107 H Calcium TNR 8.6 AST TNR 19 ALT TNR 12 Alkaline Phosphatase TNR 63 Total Protein TNR 6.9 Albumin TNR 3.7 L 02/16/20 Range/Units 05:26 Sodium 138 Potassium 3.8 D Chloride 98.4 Carbon Dioxide 22 BUN 41 H Creatinine 1.7 H Glucose 78 Calcium 8.2 L AST 20 ALT 10 Alkaline Phosphatase 58 Total Protein 6.4 Albumin 3.4 L Calcium panel 02/15/20 02/15/20 02/15/20 Range/Units 15:45 16:31 16:31 Calcium TNR 8.6 Phosphorus (2.5-4.5) mg/dL Albumin TNR 3.7 L 02/16/20 Range/Units 05:26 Calcium 8.2 L Phosphorus 3.40 (2.5-4.5) mg/dL Albumin 3.4 L Pituitary panel 02/15/20 02/15/20 02/16/20 Range/Units 15:45 16:31 05:26 Sodium TNR 135 L 138 Potassium TNR 3.0 L 3.8 D Chloride TNR 93.8 L 98.4 Carbon Dioxide TNR 24 22 BUN TNR 46 H 41 H Creatinine TNR 2.3 H 1.7 H Glucose TNR 107 H 78 Calcium TNR 8.6 8.2 L Adrenal panel 02/15/20 02/15/20 02/15/20 Range/Units 15:45 16:31 16:31 Sodium TNR 135 L Potassium TNR 3.0 L Chloride TNR 93.8 L Carbon Dioxide TNR 24 BUN TNR 46 H Creatinine TNR 2.3 H Glucose TNR 107 H Calcium TNR 8.6 Total Bilirubin TNR 0.90 AST TNR 19 ALT TNR 12 Alkaline Phosphatase TNR 63 Total Protein TNR 6.9 Albumin TNR 3.7 L 02/16/20 Range/Units 05:26 Sodium 138 Potassium 3.8 D Chloride 98.4 Carbon Dioxide 22 BUN 41 H Creatinine 1.7 H Glucose 78 Calcium 8.2 L Total Bilirubin 0.90 AST 20 ALT 10 Alkaline Phosphatase 58 Total Protein 6.4 Albumin 3.4 L
[2020-02-16] MEDS: SODIUM CHLORIDE 0.9% 1000 ML 1,000 ML IV SCH ×2 (10:33→21:26)
[2020-02-17 05:39] LABS: BUN/Creatinine Ratio 29; Blood Urea Nitrogen 29 mg/dL (9-20); Calcium 8.5 mg/dL (8.4-10.2); Hemolysis Index 7
[2020-02-17] MEDS: SODIUM CHLORIDE 0.9% 1000 ML 1,000 ML IV SCH (07:34)
--- NOTE | 2020-02-17 08:21 | Progress Note ---
Assessment and Plan 1. Acute kidney injury: Vasomotor FAN in setting of volume depletion. Previously normal renal function. CT abdomen was negative for hydro. Urine studies ordered. Patient also received IV contrast. Continue IV fluids. Creatinine is 1 from 1.7 from 2.3. Monitor renal function. Avoid nephrotoxic agents. Meds dosage based on GFR. 2. FEN: Hypokalemia, replete K, monitor. Monitor lytes and volume status. 3. SBO (small bowel obstruction): Followed by General Surgery. NG tube decompression. IV fluids. 4. Hypertension: Follow BP. 5. H/o AAA repair. Objective: Patient was seen and examined at the bedside. Doing better. Examination: General appearance: well-developed, appears stated age, no distress, NGT HEENT: atraumatic Neck: neck supple, trachea midline Respiratory: ctab Heart: irrregular, normal heart rate, S1S2, no murmur Gastrointestinal: soft, bowel sounds present, not tender, L LQ mass noted Integumentary: no rash, warm and dry Neurologic: non-focal, AOX4 Ext: no edema Subjective Date of service: 02/17/20 Objective - Vital Signs Vital signs: Vital Signs - 12hr 02/17/20 02/17/20 02/17/20 00:04 07:15 08:14 Temperature 98.7 F 98.8 F Pulse Rate 99 H 91 H Respiratory 17 18 Rate Blood Pressure 143/102 132/86 O2 Sat by Pulse 97 97 96 Oximetry - Lab 02/16/20 05:26 02/17/20 08:02 Most recent lab results Calcium 8.5 mg/dL (8.4-10.2) 02/17/20 04:42 Phosphorus 3.40 mg/dL (2.5-4.5) 02/16/20 05:26 Magnesium 2.10 mg/dL (1.7-2.3) 02/16/20 05:26 Medications & Allergies - Medications Allergies/Adverse Reactions: Allergies No Known Allergies Allergy (Unverified 07/16/18 09:51) Home Medications: Home Medications Medication Instructions Recorded Confirmed Last Taken Type AtorvaSTATin 40 mg PO QHS 02/15/20 02/15/20 Unknown History Metoprolol Succinate 50 mg PO BID 02/15/20 02/15/20 Unknown History Active Medications: Generic Name Dose Route Start Last Admin Trade Name Freq PRN Reason Stop Dose Admin Acetaminophen 650 mg 02/15/20 18:53 Tylenol PO Q4H PRN Pain MILD(1-3)/Fever >100.5/AMIN Albuterol 2.5 mg 02/15/20 18:53 Proventil IH Q4HRT PRN Shortness Of Breath Hydralazine HCl 10 mg 02/15/20 18:55 Apresoline IV Q6HR PRN Hypertension Sodium Chloride 1,000 mls @ 100 mls/hr 02/15/20 19:00 02/17/20 07:34 Nacl 0.9% 1000 Ml IV 100 mls/hr DIRECT BULL Administration Morphine Sulfate 2 mg 02/15/20 18:53 Morphine IV Q4H PRN Pain, Moderate (4-6) Ondansetron HCl 4 mg 02/15/20 18:53 Zofran IV Q8H PRN Nausea And Vomiting Sodium Chloride 10 ml 02/15/20 22:00 02/16/20 21:27 Sodium Chloride Flush Syringe 10 Ml IV 10 ml BID BULL Administration Sodium Chloride 10 ml 02/15/20 18:53 Sodium Chloride Flush Syringe 10 Ml IV PRN PRN LINE FLUSH
[2020-02-17] MEDS ORDERED: D5W/0.45% NACL/KCL 20 MEQ 20 MEQ/1,000 ML BAG IV SCH (09:00)
[2020-02-17] MEDS: POTASSIUM CHLORIDE 10 MEQ 10 MEQ/100 ML BAG IV SCH ×6 (09:01→21:53)
--- NOTE | 2020-02-17 09:08 | XRay Report ---
ABDOMEN 2 VIEW(S) INDICATION / CLINICAL INFORMATION: f/u on SBO status. COMPARISON: Yesterday FINDINGS: TUBES / LINES: Stable satisfactory device positioning. BOWEL GAS PATTERN: Midline postoperative changes again noted with air throughout the bowel to include the colon. No frankly obstructive pattern seen on this exam. FREE AIR / EXTRALUMINAL GAS: None seen. ADDITIONAL FINDINGS: No significant additional findings. IMPRESSION: 1. Bowel findings as above. Signer Name: Brock Tijerina MD Signed: 02/17/2020 9:03 AM Workstation Name: [id number]
--- NOTE | 2020-02-17 10:49 | Progress Note ---
Assessment and Plan (1) SBO (small bowel obstruction) Current Visit: Yes Status: Acute Plan to address problem: Pt stable. Abdominal pain, distension resolved. Exam benign. Abd xray 02/17/20 - images and read reviewed - unremarkable bowel pattern, no obstruction Plan: 1. NGT clamp trial until 1430 - if tolerates, NGT to be removed and pt started on clears 2. Ambulate 3. DVT ppx 4. GI ppx 5. replace K 6. repeat BMP in am We will follow along. Please call with any questions. Subjective Date of service: 02/17/20 Narrative: Pt seen and examined. No complaints. No abdominal pain, n/v. States he is thirsty. +Flatus, No BM. Objective Vital Signs - 12hr 02/17/20 02/17/20 02/17/20 00:04 07:15 08:14 Temperature 98.7 F 98.8 F Pulse Rate 99 H 91 H Respiratory 17 18 Rate Blood Pressure 143/102 132/86 O2 Sat by Pulse 97 97 96 Oximetry - General physical appearance Narrative Exam: Gen: AAOx3. NAD NGT - bilious drainage in canister, blood tinged dark drainage in the tubing CV: s1, S2+ Resp: even and unlabored Abd: soft, NT, ND. no r/r/g Ext; no c/c/e - Labs 02/16/20 05:26 02/17/20 08:02 Diabetes panel 02/17/20 02/17/20 Range/Units 04:42 08:02 Sodium 139 (137-145) mmol/L Potassium 2.8 L* D 3.0 L (3.6-5.0) mmol/L Chloride 98.7 (98-107) mmol/L Carbon Dioxide 25 (22-30) mmol/L BUN 29 H (9-20) mg/dL Creatinine 1.0 (0.8-1.5) mg/dL Glucose 78 (75-100) mg/dL Calcium 8.5 (8.4-10.2) mg/dL Calcium panel 02/17/20 Range/Units 04:42 Calcium 8.5 (8.4-10.2) mg/dL Pituitary panel 02/17/20 02/17/20 Range/Units 04:42 08:02 Sodium 139 (137-145) mmol/L Potassium 2.8 L* D 3.0 L (3.6-5.0) mmol/L Chloride 98.7 (98-107) mmol/L Carbon Dioxide 25 (22-30) mmol/L BUN 29 H (9-20) mg/dL Creatinine 1.0 (0.8-1.5) mg/dL Glucose 78 (75-100) mg/dL Calcium 8.5 (8.4-10.2) mg/dL Adrenal panel 02/17/20 02/17/20 Range/Units 04:42 08:02 Sodium 139 (137-145) mmol/L Potassium 2.8 L* D 3.0 L (3.6-5.0) mmol/L Chloride 98.7 (98-107) mmol/L Carbon Dioxide 25 (22-30) mmol/L BUN 29 H (9-20) mg/dL Creatinine 1.0 (0.8-1.5) mg/dL Glucose 78 (75-100) mg/dL Calcium 8.5 (8.4-10.2) mg/dL
[2020-02-17] MEDS: FAMOTIDINE 20 MG/2 ML INJ IV SCH (11:04)
--- NOTE | 2020-02-17 13:05 | Progress Note ---
Assessment and Plan - Patient Problems (1) SBO (small bowel obstruction) Current Visit: Yes Status: Acute Plan to address problem: CT scan abdomen and pelvis results reviewed, surgical team consulted in ED, NG tube for gastric decompression, serial abdominal exam, bowel rest, IV fluid resuscitation, supportive care. (2) HTN (hypertension) Current Visit: No Status: Chronic Qualifiers: Hypertension type: essential hypertension Qualified Code(s): I10 - Essential (primary) hypertension Plan to address problem: Monitor blood pressure every shift, pain control, supportive care. (3) DVT prophylaxis Current Visit: No Status: Acute Plan to address problem: SCD to bilateral lower extremities while in bed, patient is ambulatory. (4) Advance care planning Current Visit: Yes Status: Acute History Interval history: 64 YO Male HD#2 with Partial SBO. NG tube in place. Patient knowledges flatus, patient denies fever, chills, chest pain, palpitations, bright red blood per rectum,. No reported nursing events. Hospitalist Physical - Constitutional Vitals: Temp Pulse Resp BP Pulse Ox 98.6 F 88 18 120/86 94 02/17/20 11:08 02/17/20 11:08 02/17/20 11:08 02/17/20 11:08 02/17/20 11:08 General appearance: Present: mild distress - EENT Eyes: Present: PERRL, EOM intact ENT: hearing intact - Neck Neck: Present: supple - Respiratory Respiratory effort: normal Respiratory: bilateral: CTA - Cardiovascular Rhythm: regular Heart Sounds: Present: S1 & S2 - Extremities Extremities: no ischemia Peripheral Pulses: within normal limits - Abdominal General gastrointestinal: soft, non-tender, non-distended - Integumentary Integumentary: Present: clear, warm, dry - Psychiatric Psychiatric: appropriate mood/affect, cooperative - Neurologic Neurologic: CNII-XII intact Results - Labs CBC & Chem 7: 02/16/20 05:26 02/17/20 08:02 Labs: Laboratory Last Values WBC 7.5 K/mm3 (4.5-11.0) 02/16/20 05:26 RBC 4.49 M/mm3 (3.65-5.03) 02/16/20 05:26 Hgb 14.9 gm/dl (11.8-15.2) 02/16/20 05:26 Hct 43.5 % (35.5-45.6) 02/16/20 05:26 MCV 97 fl (84-94) H 02/16/20 05:26 MCH 33 pg (28-32) H 02/16/20 05:26 MCHC 34 % (32-34) 02/16/20 05:26 RDW 13.7 % (13.2-15.2) 02/16/20 05:26 Plt Count 122 K/mm3 (140-440) L 02/16/20 05:26 [place] % (Auto) Numerical Control Operator 02/16/20 05:26 Add Manual Diff Complete 02/16/20 05:26 Total Counted 100 02/16/20 05:26 Seg Neuts % (Manual) 63.0 % (40.0-70.0) 02/16/20 05:26 Band Neutrophils % 0 % 02/16/20 05:26 Lymphocytes % (Manual) 12.0 % (13.4-35.0) L 02/16/20 05:26 Reactive Lymphs % (Man) 0 % 02/16/20 05:26 Monocytes % (Manual) 20.0 % (0.0-7.3) H 02/16/20 05:26 Eosinophils % (Manual) 5.0 % (0.0-4.3) H 02/16/20 05:26 Basophils % (Manual) 0 % (0.0-1.8) 02/16/20 05:26 Metamyelocytes % 0 % 02/16/20 05:26 Myelocytes % 0 % 02/16/20 05:26 Promyelocytes % 0 % 02/16/20 05:26 Blast Cells % 0 % 02/16/20 05:26 Nucleated RBC % Not Reportable 02/16/20 05:26 Seg Neutrophils # Man 4.7 K/mm3 (1.8-7.7) 02/16/20 05:26 Band Neutrophils # 0.0 K/mm3 02/16/20 05:26 Lymphocytes # (Manual) 0.9 K/mm3 (1.2-5.4) L 02/16/20 05:26 Abs React Lymphs (Man) 0.0 K/mm3 02/16/20 05:26 Monocytes # (Manual) 1.5 K/mm3 (0.0-0.8) H 02/16/20 05:26 Eosinophils # (Manual) 0.4 K/mm3 (0.0-0.4) 02/16/20 05:26 Basophils # (Manual) 0.0 K/mm3 (0.0-0.1) 02/16/20 05:26 Metamyelocytes # 0.0 K/mm3 02/16/20 05:26 Myelocytes # 0.0 K/mm3 02/16/20 05:26 Promyelocytes # 0.0 K/mm3 02/16/20 05:26 Blast Cells # 0.0 K/mm3 02/16/20 05:26 WBC Morphology Not Reportable 02/16/20 05:26 Hypersegmented Neuts Not Reportable 02/16/20 05:26 Hyposegmented Neuts Not Reportable 02/16/20 05:26 Hypogranular Neuts Not Reportable 02/16/20 05:26 Smudge Cells Not Reportable 02/16/20 05:26 Toxic Granulation Not Reportable 02/16/20 05:26 Toxic Vacuolation Not Reportable 02/16/20 05:26 Dohle Bodies Not Reportable 02/16/20 05:26 Pelger-Huet Anomaly Not Reportable 02/16/20 05:26 An Rods Not Reportable 02/16/20 05:26 Platelet Estimate Consistent w auto 02/16/20 05:26 Clumped Platelets Not Reportable 02/16/20 05:26 Plt Clumps, EDTA Not Reportable 02/16/20 05:26 Large Platelets Not Reportable 02/16/20 05:26 Giant Platelets Not Reportable 02/16/20 05:26 Platelet Satelliting Not Reportable 02/16/20 05:26 Plt Morphology Comment Not Reportable 02/16/20 05:26 RBC Morphology Not Reportable 02/16/20 05:26 Dimorphic RBCs Not Reportable 02/16/20 05:26 Polychromasia Not Reportable 02/16/20 05:26 Hypochromasia Not Reportable 02/16/20 05:26 Poikilocytosis 1+ 02/16/20 05:26 Anisocytosis 1+ 02/16/20 05:26 Microcytosis Not Reportable 02/16/20 05:26 Macrocytosis Not Reportable 02/16/20 05:26 Spherocytes Not Reportable 02/16/20 05:26 Pappenheimer Bodies Not Reportable 02/16/20 05:26 Sickle Cells Not Reportable 02/16/20 05:26 Target Cells Not Reportable 02/16/20 05:26 Tear Drop Cells Not Reportable 02/16/20 05:26 Ovalocytes Not Reportable 02/16/20 05:26 Helmet Cells Not Reportable 02/16/20 05:26 [place] Bodies Not Reportable 02/16/20 05:26 [place] Rings Not Reportable 02/16/20 05:26 [place] Cells 1+ 02/16/20 05:26 Bite Cells Not Reportable 02/16/20 05:26 Crenated Cell Not Reportable 02/16/20 05:26 Elliptocytes Not Reportable 02/16/20 05:26 Acanthocytes (Spur) Few 02/16/20 05:26 Rouleaux Not Reportable 02/16/20 05:26 Hemoglobin C Crystals Not Reportable 02/16/20 05:26 Schistocytes Not Reportable 02/16/20 05:26 Malaria parasites Not Reportable 02/16/20 05:26 [place]erm[place] Bodies Not Reportable 02/16/20 05:26 Hem Pathologist Commnt No 02/16/20 05:26 PT 17.5 Sec. (12.2-14.9) H 02/15/20 16:31 INR 1.47 (0.87-1.13) H 02/15/20 16:31 APTT 25.7 Sec. (24.2-36.6) 02/15/20 16:31 Sodium 139 mmol/L (137-145) 02/17/20 04:42 Potassium 3.0 mmol/L (3.6-5.0) L 02/17/20 08:02 Chloride 98.7 mmol/L (98-107) 02/17/20 04:42 Carbon Dioxide 25 mmol/L (22-30) 02/17/20 04:42 Anion Gap 18 mmol/L 02/17/20 04:42 BUN 29 mg/dL (9-20) H 02/17/20 04:42 Creatinine 1.0 mg/dL (0.8-1.5) 02/17/20 04:42 Estimated GFR > 60 ml/min 02/17/20 04:42 BUN/Creatinine Ratio 29 % 02/17/20 04:42 Glucose 78 mg/dL (75-100) 02/17/20 04:42 Lactic Acid 0.40 mmol/L (0.7-2.0) L 02/15/20 15:45 Calcium 8.5 mg/dL (8.4-10.2) 02/17/20 04:42 Phosphorus 3.40 mg/dL (2.5-4.5) 02/16/20 05:26 Magnesium 2.10 mg/dL (1.7-2.3) 02/16/20 05:26 Total Bilirubin 0.90 mg/dL (0.1-1.2) 02/16/20 05:26 Direct Bilirubin 0.3 mg/dL (0-0.2) H 02/15/20 16:31 Indirect Bilirubin 0.6 mg/dL 02/15/20 16:31 AST 20 units/L (5-40) 02/16/20 05:26 ALT 10 units/L (7-56) 02/16/20 05:26 Alkaline Phosphatase 58 units/L (35-129) 02/16/20 05:26 Total Protein 6.4 g/dL (6.3-8.2) 02/16/20 05:26 Albumin 3.4 g/dL (3.9-5) L 02/16/20 05:26 Albumin/Globulin Ratio 1.1 % 02/16/20 05:26 Nasal Screen MRSA (PCR) Negative (Negative) 02/16/20 23:57 Lucero/IV: Voiding Method Urinal IV Catheter Type [Left Hand] Peripheral IV Active Medications - Current Medications Current Medications: Generic Name Dose Route Start Last Admin Trade Name Freq PRN Reason Stop Dose Admin Acetaminophen 650 mg 02/15/20 18:53 Tylenol PO Q4H PRN Pain MILD(1-3)/Fever >100.5/AMIN Albuterol 2.5 mg 02/15/20 18:53 Proventil IH Q4HRT PRN Shortness Of Breath Famotidine 20 mg 02/17/20 11:00 02/17/20 11:04 Pepcid IV 20 mg QDAY BULL Administration Hydralazine HCl 10 mg 02/15/20 18:55 Apresoline IV Q6HR PRN Hypertension Potassium Chloride 10 meq in 100 mls @ 100 mls/hr 02/17/20 10:00 02/17/20 11:00 Kcl 10meq/100ml IV 02/17/20 15:59 100 mls/hr Q1H BULL Administration Potassium Chloride/Dextrose/Sod Cl 20 meq in 1,000 mls @ 100 mls/hr 02/17/20 09:00 02/17/20 09:01 D5w/0.45% Nacl/Kcl 20 Meq IV 100 mls/hr DIRECT BULL Administration Morphine Sulfate 2 mg 02/15/20 18:53 Morphine IV Q4H PRN Pain, Moderate (4-6) Ondansetron HCl 4 mg 02/15/20 18:53 Zofran IV Q8H PRN Nausea And Vomiting Sodium Chloride 10 ml 02/15/20 22:00 02/17/20 09:05 Sodium Chloride Flush Syringe 10 Ml IV 10 ml BID BULL Administration Sodium Chloride 10 ml 02/15/20 18:53 Sodium Chloride Flush Syringe 10 Ml IV PRN PRN LINE FLUSH
--- NOTE | 2020-02-17 20:46 | Progress Note ---
Assessment and Plan - Patient Problems (1) SBO (small bowel obstruction) Current Visit: Yes Status: Acute Plan to address problem: CT scan abdomen and pelvis results reviewed, surgical team consulted in ED, NG tube for gastric decompression, serial abdominal exam, bowel rest, IV fluid resuscitation, supportive care. (2) HTN (hypertension) Current Visit: No Status: Chronic Qualifiers: Hypertension type: essential hypertension Qualified Code(s): I10 - Essential (primary) hypertension Plan to address problem: Monitor blood pressure every shift, pain control, supportive care. (3) DVT prophylaxis Current Visit: No Status: Acute Plan to address problem: SCD to bilateral lower extremities while in bed, patient is ambulatory. (4) Advance care planning Current Visit: Yes Status: Acute Plan to address problem: Disease education conducted, patient knowledges understanding and agreement with care plan, patient is full code, +30 minutes. History Interval history: 64 YO Male HD#3 with Partial SBO. NG tube in place. Patient knowledges flatus, patient denies fever, chills, chest pain, palpitations, bright red blood per rectum,. No reported nursing events. NG tube discontinuation as per surgical team. Hospitalist Physical - Constitutional Vitals: Temp Pulse Resp BP Pulse Ox 100.0 F H 92 H 18 124/91 98 02/17/20 19:53 02/17/20 19:53 02/17/20 19:53 02/17/20 19:53 02/17/20 19:53 General appearance: Present: mild distress - EENT Eyes: Present: PERRL, EOM intact ENT: hearing intact - Neck Neck: Present: supple - Respiratory Respiratory effort: normal Respiratory: bilateral: CTA - Cardiovascular Rhythm: regular Heart Sounds: Present: S1 & S2 - Extremities Extremities: no ischemia Peripheral Pulses: within normal limits - Abdominal General gastrointestinal: soft, non-tender, non-distended - Integumentary Integumentary: Present: clear, warm, dry - Psychiatric Psychiatric: appropriate mood/affect, cooperative - Neurologic Neurologic: CNII-XII intact Results - Labs CBC & Chem 7: 02/16/20 05:26 02/17/20 08:02 Labs: Laboratory Last Values WBC 7.5 K/mm3 (4.5-11.0) 02/16/20 05:26 RBC 4.49 M/mm3 (3.65-5.03) 02/16/20 05:26 Hgb 14.9 gm/dl (11.8-15.2) 02/16/20 05:26 Hct 43.5 % (35.5-45.6) 02/16/20 05:26 MCV 97 fl (84-94) H 02/16/20 05:26 MCH 33 pg (28-32) H 02/16/20 05:26 MCHC 34 % (32-34) 02/16/20 05:26 RDW 13.7 % (13.2-15.2) 02/16/20 05:26 Plt Count 122 K/mm3 (140-440) L 02/16/20 05:26 [place] % (Auto) Buggy Loader 02/16/20 05:26 Add Manual Diff Complete 02/16/20 05:26 Total Counted 100 02/16/20 05:26 Seg Neuts % (Manual) 63.0 % (40.0-70.0) 02/16/20 05:26 Band Neutrophils % 0 % 02/16/20 05:26 Lymphocytes % (Manual) 12.0 % (13.4-35.0) L 02/16/20 05:26 Reactive Lymphs % (Man) 0 % 02/16/20 05:26 Monocytes % (Manual) 20.0 % (0.0-7.3) H 02/16/20 05:26 Eosinophils % (Manual) 5.0 % (0.0-4.3) H 02/16/20 05:26 Basophils % (Manual) 0 % (0.0-1.8) 02/16/20 05:26 Metamyelocytes % 0 % 02/16/20 05:26 Myelocytes % 0 % 02/16/20 05:26 Promyelocytes % 0 % 02/16/20 05:26 Blast Cells % 0 % 02/16/20 05:26 Nucleated RBC % Not Reportable 02/16/20 05:26 Seg Neutrophils # Man 4.7 K/mm3 (1.8-7.7) 02/16/20 05:26 Band Neutrophils # 0.0 K/mm3 02/16/20 05:26 Lymphocytes # (Manual) 0.9 K/mm3 (1.2-5.4) L 02/16/20 05:26 Abs React Lymphs (Man) 0.0 K/mm3 02/16/20 05:26 Monocytes # (Manual) 1.5 K/mm3 (0.0-0.8) H 02/16/20 05:26 Eosinophils # (Manual) 0.4 K/mm3 (0.0-0.4) 02/16/20 05:26 Basophils # (Manual) 0.0 K/mm3 (0.0-0.1) 02/16/20 05:26 Metamyelocytes # 0.0 K/mm3 02/16/20 05:26 Myelocytes # 0.0 K/mm3 02/16/20 05:26 Promyelocytes # 0.0 K/mm3 02/16/20 05:26 Blast Cells # 0.0 K/mm3 02/16/20 05:26 WBC Morphology Not Reportable 02/16/20 05:26 Hypersegmented Neuts Not Reportable 02/16/20 05:26 Hyposegmented Neuts Not Reportable 02/16/20 05:26 Hypogranular Neuts Not Reportable 02/16/20 05:26 Smudge Cells Not Reportable 02/16/20 05:26 Toxic Granulation Not Reportable 02/16/20 05:26 Toxic Vacuolation Not Reportable 02/16/20 05:26 Dohle Bodies Not Reportable 02/16/20 05:26 Pelger-Huet Anomaly Not Reportable 02/16/20 05:26 An Rods Not Reportable 02/16/20 05:26 Platelet Estimate Consistent w auto 02/16/20 05:26 Clumped Platelets Not Reportable 02/16/20 05:26 Plt Clumps, EDTA Not Reportable 02/16/20 05:26 Large Platelets Not Reportable 02/16/20 05:26 Giant Platelets Not Reportable 02/16/20 05:26 Platelet Satelliting Not Reportable 02/16/20 05:26 Plt Morphology Comment Not Reportable 02/16/20 05:26 RBC Morphology Not Reportable 02/16/20 05:26 Dimorphic RBCs Not Reportable 02/16/20 05:26 Polychromasia Not Reportable 02/16/20 05:26 Hypochromasia Not Reportable 02/16/20 05:26 Poikilocytosis 1+ 02/16/20 05:26 Anisocytosis 1+ 02/16/20 05:26 Microcytosis Not Reportable 02/16/20 05:26 Macrocytosis Not Reportable 02/16/20 05:26 Spherocytes Not Reportable 02/16/20 05:26 Pappenheimer Bodies Not Reportable 02/16/20 05:26 Sickle Cells Not Reportable 02/16/20 05:26 Target Cells Not Reportable 02/16/20 05:26 Tear Drop Cells Not Reportable 02/16/20 05:26 Ovalocytes Not Reportable 02/16/20 05:26 Helmet Cells Not Reportable 02/16/20 05:26 [place] Bodies Not Reportable 02/16/20 05:26 [place] Rings Not Reportable 02/16/20 05:26 [place] Cells 1+ 02/16/20 05:26 Bite Cells Not Reportable 02/16/20 05:26 Crenated Cell Not Reportable 02/16/20 05:26 Elliptocytes Not Reportable 02/16/20 05:26 Acanthocytes (Spur) Few 02/16/20 05:26 Rouleaux Not Reportable 02/16/20 05:26 Hemoglobin C Crystals Not Reportable 02/16/20 05:26 Schistocytes Not Reportable 02/16/20 05:26 Malaria parasites Not Reportable 02/16/20 05:26 Jermain Bodies Not Reportable 02/16/20 05:26 Hem Pathologist Commnt No 02/16/20 05:26 PT 17.5 Sec. (12.2-14.9) H 02/15/20 16:31 INR 1.47 (0.87-1.13) H 02/15/20 16:31 APTT 25.7 Sec. (24.2-36.6) 02/15/20 16:31 Sodium 139 mmol/L (137-145) 02/17/20 04:42 Potassium 3.0 mmol/L (3.6-5.0) L 02/17/20 08:02 Chloride 98.7 mmol/L (98-107) 02/17/20 04:42 Carbon Dioxide 25 mmol/L (22-30) 02/17/20 04:42 Anion Gap 18 mmol/L 02/17/20 04:42 BUN 29 mg/dL (9-20) H 02/17/20 04:42 Creatinine 1.0 mg/dL (0.8-1.5) 02/17/20 04:42 Estimated GFR > 60 ml/min 02/17/20 04:42 BUN/Creatinine Ratio 29 % 02/17/20 04:42 Glucose 78 mg/dL (75-100) 02/17/20 04:42 Lactic Acid 0.40 mmol/L (0.7-2.0) L 02/15/20 15:45 Calcium 8.5 mg/dL (8.4-10.2) 02/17/20 04:42 Phosphorus 3.40 mg/dL (2.5-4.5) 02/16/20 05:26 Magnesium 2.10 mg/dL (1.7-2.3) 02/16/20 05:26 Total Bilirubin 0.90 mg/dL (0.1-1.2) 02/16/20 05:26 Direct Bilirubin 0.3 mg/dL (0-0.2) H 02/15/20 16:31 Indirect Bilirubin 0.6 mg/dL 02/15/20 16:31 AST 20 units/L (5-40) 02/16/20 05:26 ALT 10 units/L (7-56) 02/16/20 05:26 Alkaline Phosphatase 58 units/L (35-129) 02/16/20 05:26 Total Protein 6.4 g/dL (6.3-8.2) 02/16/20 05:26 Albumin 3.4 g/dL (3.9-5) L 02/16/20 05:26 Albumin/Globulin Ratio 1.1 % 02/16/20 05:26 Nasal Screen MRSA (PCR) Negative (Negative) 02/16/20 23:57 Lucero/IV: Voiding Method Urinal IV Catheter Type [Left Hand] Peripheral IV Active Medications - Current Medications Current Medications: Generic Name Dose Route Start Last Admin Trade Name Freq PRN Reason Stop Dose Admin Acetaminophen 650 mg 02/15/20 18:53 Tylenol PO Q4H PRN Pain MILD(1-3)/Fever >100.5/AMIN Albuterol 2.5 mg 02/15/20 18:53 Proventil IH Q4HRT PRN Shortness Of Breath Famotidine 20 mg 02/17/20 11:00 02/17/20 11:04 Pepcid IV 20 mg QDAY BULL Administration Hydralazine HCl 10 mg 02/15/20 18:55 Apresoline IV Q6HR PRN Hypertension Potassium Chloride/Dextrose/Sod Cl 20 meq in 1,000 mls @ 100 mls/hr 02/17/20 09:00 02/17/20 09:01 D5w/0.45% Nacl/Kcl 20 Meq IV 100 mls/hr DIRECT BULL Administration Morphine Sulfate 2 mg 02/15/20 18:53 Morphine IV Q4H PRN Pain, Moderate (4-6) Ondansetron HCl 4 mg 02/15/20 18:53 Zofran IV Q8H PRN Nausea And Vomiting Sodium Chloride 10 ml 02/15/20 22:00 02/17/20 09:05 Sodium Chloride Flush Syringe 10 Ml IV 10 ml BID BULL Administration Sodium Chloride 10 ml 02/15/20 18:53 Sodium Chloride Flush Syringe 10 Ml IV PRN PRN LINE FLUSH
[2020-02-18 05:16] LABS: BUN/Creatinine Ratio 19; Blood Urea Nitrogen 17 mg/dL (9-20); Calcium 8.1 mg/dL (8.4-10.2); Hemolysis Index 6
[2020-02-18] MEDS: FAMOTIDINE 20 MG/2 ML INJ IV SCH ×2 (07:34→10:06)
--- NOTE | 2020-02-18 07:43 | Progress Note ---
Assessment and Plan 1. Acute kidney injury: Vasomotor FAN in setting of volume depletion. Previously normal renal function. CT abdomen was negative for hydro. Patient also received IV contrast. Continue IV fluids. Creatinine is 0.9 from 1 from 1.7 from 2.3. Monitor renal function. Avoid nephrotoxic agents. Meds dosage based on GFR. 2. FEN: Hypokalemia, replete K, monitor. Replete Phos. Monitor lytes and volume status. 3. SBO (small bowel obstruction): Followed by General Surgery. S/p NG tube decompression. IV fluids. 4. Hypertension: Follow BP. 5. H/o AAA repair. Objective: Patient was seen and examined at the bedside. Doing better. Examination: General appearance: well-developed, appears stated age, no distress HEENT: atraumatic Neck: neck supple, trachea midline Respiratory: ctab Heart: irrregular, normal heart rate, S1S2, no murmur Gastrointestinal: soft, bowel sounds present, not tender, L LQ mass noted Integumentary: no rash, warm and dry Neurologic: non-focal, AOX4 Ext: no edema Subjective Date of service: 02/18/20 Objective - Vital Signs Vital signs: Vital Signs - 12hr 02/17/20 02/17/20 02/18/20 19:53 20:00 00:12 Temperature 100.0 F H 99.9 F H Pulse Rate 92 H 86 Respiratory 18 20 18 Rate Blood Pressure 124/91 128/97 Blood Pressure [Left] O2 Sat by Pulse 98 96 Oximetry 02/18/20 02/18/20 02/18/20 04:19 07:09 07:28 Temperature 98.9 F 98.5 F 98.5 F Pulse Rate 84 83 Respiratory 18 20 20 Rate Blood Pressure 117/85 126/84 Blood Pressure 126/84 [Left] O2 Sat by Pulse 97 97 Oximetry - Lab 02/16/20 05:26 02/18/20 04:28 Most recent lab results Calcium 8.1 mg/dL (8.4-10.2) L 02/18/20 04:28 Phosphorus 1.40 mg/dL (2.5-4.5) L 02/18/20 04:28 Magnesium 2.10 mg/dL (1.7-2.3) 02/16/20 05:26 Medications & Allergies - Medications Allergies/Adverse Reactions: Allergies No Known Allergies Allergy (Unverified 07/16/18 09:51) Home Medications: Home Medications Medication Instructions Recorded Confirmed Last Taken Type AtorvaSTATin 40 mg PO QHS 02/15/20 02/15/20 Unknown History Metoprolol Succinate 50 mg PO BID 02/15/20 02/15/20 Unknown History Active Medications: Generic Name Dose Route Start Last Admin Trade Name Freq PRN Reason Stop Dose Admin Acetaminophen 650 mg 02/15/20 18:53 Tylenol PO Q4H PRN Pain MILD(1-3)/Fever >100.5/AMIN Albuterol 2.5 mg 02/15/20 18:53 Proventil IH Q4HRT PRN Shortness Of Breath Famotidine 20 mg 02/17/20 11:00 02/18/20 07:34 Pepcid IV 20 mg QDAY BULL Administration Hydralazine HCl 10 mg 02/15/20 18:55 Apresoline IV Q6HR PRN Hypertension Potassium Chloride/Dextrose/Sod Cl 20 meq in 1,000 mls @ 100 mls/hr 02/17/20 09:00 02/17/20 09:01 D5w/0.45% Nacl/Kcl 20 Meq IV 100 mls/hr DIRECT BULL Administration Potassium Chloride 10 meq in 100 mls @ 100 mls/hr 02/18/20 08:00 Kcl 10meq/100ml IV 02/18/20 13:59 Q1H BULL Potassium Phosphate 45 mmol/ 515 mls @ 85 mls/hr 02/18/20 07:42 Sodium Chloride IV 02/18/20 13:45 ONCE ONE Morphine Sulfate 2 mg 02/15/20 18:53 Morphine IV Q4H PRN Pain, Moderate (4-6) Ondansetron HCl 4 mg 02/15/20 18:53 Zofran IV Q8H PRN Nausea And Vomiting Sodium Chloride 10 ml 02/15/20 22:00 02/17/20 22:11 Sodium Chloride Flush Syringe 10 Ml IV 10 ml BID BULL Administration Sodium Chloride 10 ml 02/15/20 18:53 Sodium Chloride Flush Syringe 10 Ml IV PRN PRN LINE FLUSH
[2020-02-18] MEDS ORDERED: POTASSIUM CHLORIDE 10 MEQ 10 MEQ/100 ML BAG IV SCH (08:00)
[2020-02-18] MEDS ORDERED: POTASSIUM PHOSPHATE 45 MMOL in SODIUM CHLORIDE 0.9% 500 ML 500 ML IV ONE (08:00)
--- NOTE | 2020-02-18 08:38 | XRay Report ---
ABDOMEN 1 VIEW(S) INDICATION / CLINICAL INFORMATION: f/u on SBO status. COMPARISON: Abdominal radiograph one day prior FINDINGS: TUBES / LINES: None. BOWEL GAS PATTERN: There are several mildly dilated loops of small bowel, the largest in the right up per quadrant measuring up to 3.8 cm in diameter. This appears minimally increased from prior examinat ion. FREE AIR / EXTRALUMINAL GAS: None appreciated on supine examination. ADDITIONAL FINDINGS: Surgical clips in the left mid abdomen, and an anastomotic suture line seen in t he left lower quadrant. IMPRESSION: 1. Several mildly dilated loops of small bowel, slightly increased from prior examination. Signer Name: Diana Rudolph MD Signed: 02/18/2020 8:33 AM Workstation Name: [id number]
[2020-02-18] MEDS ORDERED: POTASSIUM CHLORIDE ER 20 MEQ TAB PO ONE (09:00)
[2020-02-18] MEDS: PHOS-NAK POWDER PACKET PO SCH ×2 (10:19→15:04)
[2020-02-18 11:18] VITALS: BP 127/94
--- NOTE | 2020-02-18 14:14 | Discharge Summary ---
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 Patient stated that he had experienced abdominal pain over the previous 3 days. Patient stated that his pain was 10/10, crampy, associated with nausea and multiple episodes of vomiting. Patient underwent a CT scan of the abdomen and pelvis as an outpatient on yesterday and presented to his primary care physician's office today to review results. Patient was seen and evaluated by his primary care physician and instructed to seek further care. EMS notified and the patient was subsequently transported to [facility] for further evaluation and care. Patient seen and evaluated in the emergency department. Lab and imaging studies were reviewed. Patient found to have evidence of a small bowel obstruction as well as FAN with ATN. Surgical team consulted in ED as well as Nephrology team. Patient underwent placement of an NG tube for gastric decompression. Patient admitted to surgical floor due to increased risk of decompensation. Patient denied fever, chills, chest pain, palpitation, productive cough, skin rash, recent ill contact, hematemesis, bright red blood per rectum, melena, ingestion of food/water from new or different sources. Prior admission on 07/16/2018 reviewed. Advanced care planning conducted in the emergency department. Patient treated with IV fluid resuscitation therapy, bowel rest and supportive care. Patient convalesced well during hospital course with mild daily improvement in the aforementioned symptoms. Patient NG tube was clamped on the day prior to admission without return of the aforementioned symptoms. Patient NG tube was discontinued. Patient is tolerating diet, acknowledges flatus and bowel movement. On day of discharge the patient is medically optimized and back to usual state of health. The patient is cleared for discharge as per surgical team. Patient seen and evaluated prior to discharge but no significant physical exam findings on exam. Patient discharged home and instructed to follow-up with primary care physician within 1 week and follow-up with surgical team PRN. 35 minutes dedicated to patient discharge and coordination of care. Disposition: DC-01 TO HOME OR SELFCARE - Discharge Diagnoses (1) SBO (small bowel obstruction) Status: Acute (2) HTN (hypertension) Status: Chronic Qualifiers: Hypertension type: essential hypertension Qualified Code(s): I10 - Essential (primary) hypertension (3) DVT prophylaxis Status: Acute (4) Advance care planning Status: Acute Core Measure Documentation - Palliative Care Palliative Care/ Comfort Measures: Not Applicable - Core Measures Any of the following diagnoses?: none Exam - Constitutional Vitals: Temp Pulse Resp BP Pulse Ox 98.8 F 81 16 127/94 96 02/18/20 11:16 02/18/20 11:16 02/18/20 11:16 02/18/20 11:16 02/18/20 11:16 General appearance: Present: no acute distress, well-nourished - EENT Eyes: Present: PERRL ENT: hearing intact, clear oral mucosa - Neck Neck: Present: supple, normal ROM - Respiratory Respiratory effort: normal Respiratory: bilateral: CTA - Cardiovascular Heart Sounds: Present: S1 & S2. Absent: rub, click - Extremities Extremities: pulses symmetrical, No edema Peripheral Pulses: within normal limits - Abdominal General gastrointestinal: Present: soft, non-tender, non-distended, normal bowel sounds Male genitourinary: Present: normal - Integumentary Integumentary: Present: clear, warm, dry - Musculoskeletal Musculoskeletal: gait normal, strength equal bilaterally - Psychiatric Psychiatric: appropriate mood/affect, intact judgment & insight - Neurologic Neurologic: CNII-XII intact, moves all extremities Plan Activity: advance as tolerated Diet: regular Follow up with: PRIMARY CAREMD [Primary Care Provider] - 3-5 Days
== END 2020-02-18 17:21 | disposition home or self-care (01) | DRG 388 ==
LOC: ED 13:55 → 3B-SURG 18:53
PROVIDERS: ADMIT Internal Medicine; ATTEND Internal Medicine
PROC: 0D9670Z Drainage of Stomach with Drainage Device, Via Natural or Artificial Opening (ICD-10-PCS; principal; 2020-02-15)
DX: K56.609 Unspecified intestinal obstruction, unspecified as to partial versus complete obstruction (principal); N17.0 Acute kidney failure with tubular necrosis; E87.1 Hypo-osmolality and hyponatremia; E87.6 Hypokalemia; I10 Essential (primary) hypertension; F17.200 Nicotine dependence, unspecified, uncomplicated; I73.9 Peripheral vascular disease, unspecified; Z79.899 Other long term (current) drug therapy; Z82.49 Family history of ischemic heart disease and other diseases of the circulatory system
CPT/HCPCS: 36415; 74018; 74174; 80048; 80053; 80076; 82140; 83735; 84100; 84132; 85007; 85025; 85027; 85610; 85730; 87641; 93005; 96374; 96375; G0378; J2270; J2405; J3010; J3480; J7030; J7040; Q9967

== ENCOUNTER 2021-02-22 07:40 | Inpatient (IN) | payer MEDICARE ==
[2021-02-22] MEDS ORDERED: ONDANSETRON 4 MG/2 ML INJ IV ONE ×2 (07:53→11:13)
[2021-02-22] MEDS ORDERED: SODIUM CHLORIDE 0.9% 1000 ML 1,000 ML IV ONE (07:53)
--- NOTE | 2021-02-22 08:39 | Emergency Department Report ---
ED Syncope HPI - General Chief Complaint: Syncope Stated Complaint: N/V SYNCOPE Time Seen by Provider: 02/22/21 07:53 Source: patient, EMS - History of Present Illness Initial Comments: 65-year-old male, history of hypertension, AAA status post repair, left inguinal hernia repair, penile implant, small bowel obstruction, presents to ED with nausea, vomiting, and syncopal episode. Patient reports he has had some abdominal pain, nausea and vomiting x3 days. Patient denies diarrhea, reports only "slime" coming out, no formed stool, non-bloody. Patient denies any fever. States abdominal pain is periumbilical. Patient reports history of repaired abdominal aortic aneurysm. States he contacted his vascular surgeon regarding his symptoms, stated symptoms are likely not due to to his vascular problems. Patient denies any sick contacts. Reports he is fully vaccinated for COVID-19. Patient had a syncopal episode this morning while walking to his truck. Upon EMS arrival BP was 87/62. Patient given 1L normal saline by EMS. Timing/Prior Episodes: single episode today Precipitating Factors: Positive: lightheadedness Context: standing Loss of Consciousness: brief (seconds) Current Symptoms: back to normal. denies: chest pain, headache - Related Data Allergies/Adverse Reactions: Allergies No Known Allergies Allergy (Unverified 07/16/18 09:51) Home Medications: Ambulatory Orders AtorvaSTATin 40 mg PO QHS 02/15/20 Metoprolol Succinate 50 mg PO BID 02/15/20 ED Review of Systems ROS: Stated complaint: N/V SYNCOPE Other details as noted in HPI Comment: All other systems reviewed and negative Constitutional: denies: fever Respiratory: denies: shortness of breath Cardiovascular: denies: chest pain Gastrointestinal: abdominal pain, nausea, vomiting. denies: diarrhea ED Past Medical Hx - Past Medical History Hx Hypertension: Yes Hx Congestive Heart Failure: No Hx Diabetes: No Hx Asthma: No Hx COPD: No Hx HIV: No Additional medical history: Constipation, Left eye prosthesis, Penile implant - Surgical History Additional Surgical History: left eye surgery, Penile surgery - Social History Smoking Status: Never Smoker - Medications Home Medications: Home Medications Medication Instructions Recorded Confirmed Last Taken Type AtorvaSTATin 40 mg PO QHS 02/15/20 02/22/21 Unknown History Metoprolol Succinate 50 mg PO BID 02/15/20 02/22/21 Unknown History ED Physical Exam - General Limitations: No Limitations General appearance: alert, in no apparent distress - Head Head exam: Present: atraumatic, normocephalic - Eye Eye exam: Present: normal appearance - ENT ENT exam: Present: mucous membranes moist - Neck Neck exam: Present: normal inspection - Respiratory Respiratory exam: Present: normal lung sounds bilaterally. Absent: respiratory distress - Cardiovascular Cardiovascular Exam: Present: regular rate, normal rhythm - GI/Abdominal GI/Abdominal exam: Present: soft, other (Penile pump reservoir palpable in left lower quadrant). Absent: distended, tenderness - Extremities Exam Extremities exam: Present: normal inspection - Neurological Exam Neurological exam: Present: alert, oriented X3 - Psychiatric Psychiatric exam: Present: normal affect, normal mood - Skin Skin exam: Present: warm, dry, intact, normal color ED Course Vital Signs 02/22/21 02/22/21 02/22/21 07:44 07:47 07:57 Temperature 97.7 F Pulse Rate 80 80 Respiratory 27 H 26 H Rate Blood Pressure Blood Pressure 106/76 [Right] O2 Sat by Pulse 93 97 Oximetry 02/22/21 02/22/21 02/22/21 08:01 10:15 10:45 Temperature Pulse Rate 80 82 79 Respiratory 21 21 27 H Rate Blood Pressure 103/76 138/91 105/73 Blood Pressure [Right] O2 Sat by Pulse 94 100 96 Oximetry 02/22/21 02/22/21 11:31 12:01 Temperature Pulse Rate 83 87 Respiratory 24 25 H Rate Blood Pressure 93/58 103/72 Blood Pressure [Right] O2 Sat by Pulse Oximetry - Consultations Consultation #1: 02/22/21 09:55 Spoke w/ Dr Samson, nephrology on-call. Will consult on patient. Consultation #2: 02/22/21 10:[address] Millard, general surgery. Recommends NG tube. Will see patient. ED Medical Decision Making - Lab Data Result diagrams: 02/22/21 08:21 02/22/21 08:21 - Radiology Data Radiology results: report reviewed, image reviewed - Medical Decision Making 65-year-old male presents to ED following syncopal episode at home. Upon EMS arrival patient was hypotensive with systolic BP in the 80s. Patient reports he has had 3-day history of nausea and vomiting. CT scan shows high-grade small bowel obstruction. Labs show evidence of acute renal failure with BUN and creatinine of 70 and 3.4. IV fluids given. Blood pressure is improved. NG tube placed. General surgery and nephrology have been consulted. Patient will be admitted by hospitalist, Dr. Perkins, for further management. - Differential Diagnosis Dehydration, renal failure, bowel obstruction, viral illness Critical Care Time: Yes Critical care time in (mins) excluding proc time.: 35 Critical care attestation.: If time is entered above; I have spent that time in minutes in the direct care of this critically ill patient, excluding procedure time. Critical Care Time: 35 min ED Disposition Clinical Impression: Syncope, Nausea and vomiting, Acute renal failure, Hypokalemia, SBO (small bowel obstruction) Disposition: DC-09 OP ADMIT IP TO THIS HOSP Is pt being admited?: Yes Condition: Stable Time of Disposition: 10:52
[2021-02-22 09:22] LABS: Albumin 4.3 g/dL (3.9-5); Bilirubin,Direct 0.2 mg/dL (0-0.2); Calcium 9.1 mg/dL (8.4-10.2)
[2021-02-22 09:27] LABS: Hematocrit 42.5 % (35.5-45.6); Mean Corpuscular HGB Conc 35 % (32-34); Mean Corpuscular Volume 97 fl (84-94); Platelet Count 210 K/mm3 (140-440); Red Cell Distribution Width 12.8 % (13.2-15.2)
--- NOTE | 2021-02-22 10:14 | Cat Scan Report ---
CT ABDOMEN AND PELVIS WITHOUT CONTRAST INDICATION / CLINICAL INFORMATION: vomiting, abd pain WO LOW GFR. TECHNIQUE: Axial CT images were obtained through the abdomen and pelvis without IV contrast. All CT scans at this location are performed using CT dose reduction for ALARA by means of automated exposure control. COMPARISON: CT from 02/15/2020. FINDINGS: FINDINGS: Examination is limited due to lack of intravenous contrast and paucity of intraabdominal fa t. Bibasilar volume loss. Liver, gallbladder, pancreas, spleen, adrenals, kidneys, and bladder demonstra te no acute abnormality. Dilated stomach and small bowel with transition to normal caliber bowel within the central abdomen (s eries 2 image 71). Distal small bowel and colon are decompressed. No pneumatosis or free air. Similar surgical changes of prior aortic repair, not further characterized without IV contrast. No si gnificant intraperitoneal free fluid. Penile prosthesis apparatus is unchanged. No acute osseous find ings. IMPRESSION: High-grade small bowel obstruction with transition in the central abdomen. No pneumatosis or free air . Signer Name: Sammy Palomo MD Signed: 02/22/2021 10:09 AM Workstation Name: [id number]
[2021-02-22 10:34] LABS: Bilirubin,Urine NEG (Negative); Blood,Urine MOD (Negative); Color,Urine Amber (Yellow); Hyaline Casts,Urine 23 /LPF; Mucus,Urine 2+ /HPF
[2021-02-22 11:10] LABS: Total Cells Counted 100
[2021-02-22 11:13] LABS: Burr Cells Few; Platelet Estimate Consistent w Auto; Schistocytes Rare
[2021-02-22] MEDS ORDERED: LIDOCAINE VISCOUS 2% 15 ML ORAL LIQD PO ONE (11:13)
--- NOTE | 2021-02-22 11:49 | History and Physical Report ---
History of Present Illness Date of examination: 02/22/21 Chief complaint: Abdominal pain History of present illness: 65-year-old -[place] male with past medical history significant for a ortic aneurysm repair, hypertension, penile implant presented to the emergency department with complaints of abdominal pain that started 4 days ago. Patient states the pain was sharp, 10 out of 10 intensity, with no radiation, no aggravating or alleviating factors identified, patient has associated persistent nausea and vomiting. She was not eating and drinking for the last 4 days. Patient did not have any bowel movement, could not pass gas. Patient is to call his vascular surgeon and told him to go to the emergency department, his vascular surgeon stated it is not a vascular problem. In the emergency department patient was hypotensive and was given bolus of IV fluids and blood pressure was corrected. CT abdomen and pelvis showed small bowel obstruction with transition point. General surgery was consulted. Patient has elevated BUN and creatinine and nephrology was consulted. Patient admitted to the floor for further evaluation and management. REVIEW OF SYSTEMS: GENERAL: no weight change, no fatigue, no fever HEAD: no head ache EYES: no blurry vision, no acute visual loss EARS: no hearing loss, no discharge, no earache NOSE: no stuffiness, no sneezing, no discharge MOUTH, THROAT AND NECK: no bleeding gums, no sore throat, no swollen neck CARDIAC: no palpitations, no dyspnea on exertion, no orthopnea, no PND, no edema, no chest pain RESPIRATORY: no shortness of breath, no wheeze, no cough, no sputum, no hemoptysis, no asthma GI: As stated in the HPI. URINARY: No urgency, hematuria, dysuria or frequency. MUSCULOSKELETAL: no muscle weakness, no pain, no joint stiffness NEUROLOGIC: no loss of sensation/numbness, no tingling, no tremors, no weakness/paralysis HEMATOLOGIC: no anemia, no easy bruising SKIN: no rashes ENDOCRINE: no heat/cold intolerance, no polyuria, no polydipsia, no thyroid problems, no diabetes PSYCHIATRIC: no anxiety, no depression, no suicidal ideations Past History Past Medical History: hypertension Past Surgical History: Other (Aortic artery aneurysm repair, penile implant) Social history: other. denies: smoking, alcohol abuse, prescription drug abuse Family history: no significant family history Medications and Allergies Allergies Allergy/AdvReac Type Severity Reaction Status Date / Time No Known Allergies Allergy Unverified 07/16/18 09:51 Home Medications Medication Instructions Recorded Confirmed Last Taken Type AtorvaSTATin 40 mg PO QHS 02/15/20 02/22/21 Unknown History Metoprolol Succinate 50 mg PO BID 02/15/20 02/22/21 Unknown History Active Meds: Active Medications Ceftriaxone Sodium (Rocephin/Ns 1 Gm/50 Ml) 1 gm in 50 mls @ 100 mls/hr IV Q24H BULL; Protocol Sodium Chloride (Nacl 0.9% 1000 Ml) 1,000 mls @ 150 mls/hr IV DIRECT BULL Morphine Sulfate (Morphine 2 Mg/1 Ml Inj) 2 mg IV Q3H PRN PRN Reason: Pain, Moderate (4-6) Ondansetron HCl (Ondansetron 4 Mg/2 Ml Inj) 4 mg IV Q6H PRN PRN Reason: N/V unrelieved by Reglan Exam - Physical Exam Narrative exam: Not in cardiopulmonary distress. The patient appeared well nourished and normally developed. Vital signs as documented. Head exam is unremarkable. No scleral icterus . Neck is without jugular venous distension, thyromegaly, or carotid bruits. Lungs are clear to auscultation. Cardiac exam reveals regular rate and Rhythm. Abdominal exam reveals normal bowel sounds, nontender, no organomegaly. Extremities are nonedematous and both femoral and pedal pulses are normal. AIR DRIER: Alert and oriented 3. No focal weakness. - Constitutional Vitals: Temp Pulse Resp BP Pulse Ox 97.7 F 82 21 138/91 100 02/22/21 07:57 02/22/21 10:15 02/22/21 10:15 02/22/21 10:15 02/22/21 10:15 Results - Labs CBC & Chem 7: 02/22/21 08:21 02/22/21 08:21 Labs: Laboratory Last Values WBC 8.7 K/mm3 (4.5-11.0) 02/22/21 08:21 RBC 4.40 M/mm3 (3.65-5.03) 02/22/21 08:21 Hgb 15.0 gm/dl (11.8-15.2) 02/22/21 08:21 Hct 42.5 % (35.5-45.6) 02/22/21 08:21 MCV 97 fl (84-94) H 02/22/21 08:21 MCH 34 pg (28-32) H 02/22/21 08:21 MCHC 35 % (32-34) H 02/22/21 08:21 RDW 12.8 % (13.2-15.2) L 02/22/21 08:21 Plt Count 210 K/mm3 (140-440) 02/22/21 08:21 Hale % (Auto) Favor Maker 02/22/21 08:21 Add Manual Diff Complete 02/22/21 08:21 Total Counted 100 02/22/21 08:21 Seg Neuts % (Manual) 81.0 % (40.0-70.0) H 02/22/21 08:21 Lymphocytes % (Manual) 6.0 % (13.4-35.0) L 02/22/21 08:21 Monocytes % (Manual) 12.0 % (0.0-7.3) H 02/22/21 08:21 Eosinophils % (Manual) 1.0 % (0.0-4.3) 02/22/21 08:21 Nucleated RBC % Not Reportable 02/22/21 08:21 Seg Neutrophils # Man 7.0 K/mm3 (1.8-7.7) 02/22/21 08:21 Band Neutrophils # 0.0 K/mm3 02/22/21 08:21 Lymphocytes # (Manual) 0.5 K/mm3 (1.2-5.4) L 02/22/21 08:21 Abs React Lymphs (Man) 0.0 K/mm3 02/22/21 08:21 Monocytes # (Manual) 1.0 K/mm3 (0.0-0.8) H 02/22/21 08:21 Eosinophils # (Manual) 0.1 K/mm3 (0.0-0.4) 02/22/21 08:21 Basophils # (Manual) 0.0 K/mm3 (0.0-0.1) 02/22/21 08:21 Metamyelocytes # 0.0 K/mm3 02/22/21 08:21 Myelocytes # 0.0 K/mm3 02/22/21 08:21 Promyelocytes # 0.0 K/mm3 02/22/21 08:21 Blast Cells # 0.0 K/mm3 02/22/21 08:21 WBC Morphology Not Reportable 02/22/21 08:21 WBC Morphology TNR 02/22/21 08:21 Hypersegmented Neuts Not Reportable 02/22/21 08:21 Hyposegmented Neuts Not Reportable 02/22/21 08:21 Hypogranular Neuts Not Reportable 02/22/21 08:21 Smudge Cells Not Reportable 02/22/21 08:21 Toxic Granulation Not Reportable 02/22/21 08:21 Toxic Vacuolation Not Reportable 02/22/21 08:21 Dohle Bodies Not Reportable 02/22/21 08:21 Pelger-Huet Anomaly Not Reportable 02/22/21 08:21 An Rods Not Reportable 02/22/21 08:21 Platelet Estimate Consistent w auto 02/22/21 08:21 Clumped Platelets Not Reportable 02/22/21 08:21 Plt Clumps, EDTA Not Reportable 02/22/21 08:21 Large Platelets Not Reportable 02/22/21 08:21 Giant Platelets Not Reportable 02/22/21 08:21 Platelet Satelliting Not Reportable 02/22/21 08:21 Plt Morphology Comment Not Reportable 02/22/21 08:21 RBC Morphology Not Reportable 02/22/21 08:21 Dimorphic RBCs Not Reportable 02/22/21 08:21 Polychromasia Not Reportable 02/22/21 08:21 Hypochromasia Not Reportable 02/22/21 08:21 Poikilocytosis Not Reportable 02/22/21 08:21 Anisocytosis Not Reportable 02/22/21 08:21 Microcytosis Not Reportable 02/22/21 08:21 Macrocytosis Not Reportable 02/22/21 08:21 Spherocytes Not Reportable 02/22/21 08:21 Pappenheimer Bodies Not Reportable 02/22/21 08:21 Sickle Cells Not Reportable 02/22/21 08:21 Target Cells Not Reportable 02/22/21 08:21 Tear Drop Cells Not Reportable 02/22/21 08:21 Ovalocytes Not Reportable 02/22/21 08:21 Helmet Cells Not Reportable 02/22/21 08:21 [place] Bodies Not Reportable 02/22/21 08:21 [place] Rings Not Reportable 02/22/21 08:21 Minnie Cells Few 02/22/21 08:21 Bite Cells Not Reportable 02/22/21 08:21 Crenated Cell Not Reportable 02/22/21 08:21 Elliptocytes Few 02/22/21 08:21 Acanthocytes (Spur) Not Reportable 02/22/21 08:21 Rouleaux Not Reportable 02/22/21 08:21 Hemoglobin C Crystals Not Reportable 02/22/21 08:21 Schistocytes Rare 02/22/21 08:21 Malaria parasites Not Reportable 02/22/21 08:21 Jermain Bodies Not Reportable 02/22/21 08:21 Hem Pathologist Commnt No 02/22/21 08:21 Sodium 134 mmol/L (137-145) L 02/22/21 08:21 Potassium 3.3 mmol/L (3.6-5.0) L 02/22/21 08:21 Chloride 86.6 mmol/L (98-107) L 02/22/21 08:21 Carbon Dioxide 31 mmol/L (22-30) H 02/22/21 08:21 Anion Gap 20 mmol/L 02/22/21 08:21 BUN 70 mg/dL (9-20) H 02/22/21 08:21 Creatinine 3.4 mg/dL (0.8-1.3) H 02/22/21 08:21 Estimated GFR 22 ml/min 02/22/21 08:21 BUN/Creatinine Ratio 21 % 02/22/21 08:21 Glucose 100 mg/dL (75-100) 02/22/21 08:21 Calcium 9.1 mg/dL (8.4-10.2) 02/22/21 08:21 Total Bilirubin 0.80 mg/dL (0.1-1.2) 02/22/21 08:21 Direct Bilirubin 0.2 mg/dL (0-0.2) 02/22/21 08:21 Indirect Bilirubin 0.6 mg/dL 02/22/21 08:21 AST 16 units/L (5-40) 02/22/21 08:21 ALT 9 units/L (7-56) 02/22/21 08:21 Alkaline Phosphatase 72 units/L (35-129) 02/22/21 08:21 Total Protein 8.0 g/dL (6.3-8.2) 02/22/21 08:21 Albumin 4.3 g/dL (3.9-5) 02/22/21 08:21 Albumin/Globulin Ratio 1.2 % 02/22/21 08:21 Lipase 18 units/L (13-60) 02/22/21 08:21 Urine Color Bianca (Yellow) 02/22/21 09:23 Urine Turbidity Cloudy (Clear) 02/22/21 09:23 Urine pH 5.0 (5.0-7.0) 02/22/21 09:23 Ur Specific [place] 1.017 (1.003-1.030) 02/22/21 09:23 Urine Protein 100 mg/dl mg/dL (Negative) 02/22/21 09:23 Urine Glucose (UA) Neg mg/dL (Negative) 02/22/21 09:23 Urine Ketones Neg mg/dL (Negative) 02/22/21 09:23 Urine Blood Mod (Negative) 02/22/21 09:23 Urine Nitrite Neg (Negative) 02/22/21 09:23 Urine Bilirubin Neg (Negative) 02/22/21 09:23 Urine Urobilinogen 2.0 mg/dL (<2.0) 02/22/21 09:23 Ur Leukocyte Esterase Neg (Negative) 02/22/21 09:23 Urine WBC (Auto) 9.0 /HPF (0.0-6.0) H 02/22/21 09:23 Urine RBC (Auto) 10.0 /HPF (0.0-6.0) 02/22/21 09:23 U Epithel Cells (Auto) 2.0 /HPF (0-13.0) 02/22/21 09: Hyaline Casts 23 /LPF 02/22/21 09:23 Urine Mucus 2+ /HPF 02/22/21 09:23 Assessment and Plan Assessment and plan: High-grade small bowel obstruction -N.p.o., IV fluids, pain control -during my examination patient was given pain medication and general pain resolved -General surgery consulted -We will continue to monitor Hypotension -Likely due to poor oral intake, persistent nausea and vomiting -Patient was given bolus of IV fluids and corrected -We will continue with normal saline -Held blood pressure medications Acute renal failure -Likely due to dehydration, patient is on IV fluids -Nephrology consulted History of aortic aneurysm repair -CT did not show acute abnormalities -H&H is stable DVT prophylaxis -SCDs because patient may need surgery CODE STATUS -Full Disposition; admit to medical floor. Management plan was discussed with the patient and was in agreement with the plan of care. VTE prophylaxis?: Mechanical Contraindication Mechanical VTE Prophylaxis: Contraindicated Reason for no VTE Prophylaxis: Surgical contraindication Plan of care discussed with patient/family: Yes
[2021-02-22] MEDS: MORPHINE 2 MG/1 ML INJ IV PRN ×2 (11:56→17:32)
[2021-02-22] MEDS: SODIUM CHLORIDE 0.9% 1000 ML 1,000 ML IV SCH ×2 (11:56→14:36)
[2021-02-22] MEDS: cefTRIAXone/NS 1 GM/50 ML 1 GM/50 ML BAG IV SCH (11:56)
--- NOTE | 2021-02-22 14:07 | Consultation ---
History of Present Illness - Reason for Consult Consult date: 02/22/21 - History of Present Illness This is a 65 y/o M with PMH of AAA repair, HTN, and penile implant who presented to [facility] with c/o abdominal pain, nausea, vomiting, poor oral intake, and fatigue. Pt states he hasn't eaten anything for the past [address] AP w/o IV contrast showed high grade SBO with transition in the central abdomen, no pneumatosis or free air. Pt was hypotensive in ED which improved s/p IV fluids. General surgery consulted. Pt found to have FAN with SCr level of 3.4. We were consulted to evaluate this pt who has FAN. Pt denies hx of kidney problems and NSAID use. Pt seen in bed, no acute distress, no family at bedside . Past History Past Medical History: hypertension Past Surgical History: Other (Aortic artery aneurysm repair, penile implant) Social history: other. denies: smoking, alcohol abuse, prescription drug abuse Family history: no significant family history Medications and Allergies Allergies Allergy/AdvReac Type Severity Reaction Status Date / Time No Known Allergies Allergy Verified 02/22/21 15:01 Home Medications Medication Instructions Recorded Confirmed Last Taken Type AtorvaSTATin 40 mg PO QHS 02/15/20 02/22/21 Unknown History Metoprolol Succinate 50 mg PO DAILY 02/15/20 02/22/21 1 Day Ago History ~02/21/21 Active Meds: Active Medications Ceftriaxone Sodium (Rocephin/Ns 1 Gm/50 Ml) 1 gm in 50 mls @ 100 mls/hr IV Q24H BULL; Protocol Last Admin: 02/22/21 11:56 Dose: 100 mls/hr Documented by: Sodium Chloride (Nacl 0.9% 1000 Ml) 1,000 mls @ 150 mls/hr IV DIRECT BULL Last Admin: 02/22/21 11:56 Dose: 150 mls/hr Documented by: Morphine Sulfate (Morphine 2 Mg/1 Ml Inj) 2 mg IV Q3H PRN PRN Reason: Pain, Moderate (4-6) Last Admin: 02/22/21 11:56 Dose: 2 mg Documented by: Ondansetron HCl (Ondansetron 4 Mg/2 Ml Inj) 4 mg IV Q6H PRN PRN Reason: N/V unrelieved by Reglan Review of Systems Constitutional: fatigue, poor appetite Cardiovascular: no chest pain, no shortness of breath Respiratory: no shortness of breath, no dyspnea on exertion Gastrointestinal: abdominal pain, nausea, vomiting Genitourinary Male: no dysuria, no hematuria Integumentary: no wounds Neurological: no numbness, no tingling Psychiatric: no anxiety, no depression Exam - Vital Signs Vital signs: Vital Signs Pulse Ox 93 02/22/21 07:44 - General Appearance General appearance: fatigue EENT: ATNC Neck: Present: neck supple Respiratory: Decreased Breath Sounds Heart: regular, S1S2 Gastrointestinal: Present: tenderness (nasogastric tube in place) Integumentary: warm and dry Neurologic: alert and oriented x3 Musculoskeletal: Present: other (no edema to BLE) Psychiatric: mood/affect appropriate, cooperative Results - Lab Results 02/22/21 08:21 02/22/21 08:21 Most recent lab results Calcium 9.1 mg/dL (8.4-10.2) 02/22/21 08:21 Assessment and Plan High Grade Small Bowel Obstruction FAN possibly 2/2 prerenal etiology in setting of vomiting and poor oral intake, hypotension, no obstruction Hypotension Hypokalemia Hx of AAA repair Plan: - Renal function reviewed, SCr level was 3.4 today - Most recent SCr level in [facility] prior to this admission was 0.9 on 02/18/20. Pt had elevated SCr level of 2.3 on 02/15/20, but normalized on 02/18/20 - On 0.9% NS infusion at 150 ml/hr - Replete potassium - UA showed elevated rbc, obtain protein, urine lytes, eosinophils - Started on Abx - Currently NPO - Renally dose meds - Lucero Catheter: No - Renal plan reviewed by Dr Samson
[2021-02-22 15:35] LABS: Creatinine,Urine 198.5 mg/dL (0.1-20.0); Protein/Creatinine Ratio,Urine 0.19
--- NOTE | 2021-02-22 17:20 | Consultation ---
History of Present Illness Consult date: 02/22/21 Reason for consult: abdominal pain - History of present illness History of present illness: 65 yo male s/p AAA repair with several days of diffuse abdominal pain, nausea and vomiting. He has had prior admissions for sbo which were successfully treated with NG decompression. Denies hematemesis, melena or hematochezia. Past History Past Medical History: hypertension Past Surgical History: Other (Aortic artery aneurysm repair, penile implant) Social history: other. denies: smoking, alcohol abuse, prescription drug abuse Family history: no significant family history Medications and Allergies Allergies Allergy/AdvReac Type Severity Reaction Status Date / Time No Known Allergies Allergy Verified 02/22/21 15:01 Home Medications Medication Instructions Recorded Confirmed Last Taken Type AtorvaSTATin 40 mg PO QHS 02/15/20 02/22/21 Unknown History Metoprolol Succinate 50 mg PO DAILY 02/15/20 02/22/21 1 Day Ago History ~02/21/21 Active Meds: Active Medications Ceftriaxone Sodium (Rocephin/Ns 1 Gm/50 Ml) 1 gm in 50 mls @ 100 mls/hr IV Q24H BULL; Protocol Last Admin: 02/22/21 11:56 Dose: 100 mls/hr Documented by: Sodium Chloride (Nacl 0.9% 1000 Ml) 1,000 mls @ 150 mls/hr IV DIRECT BULL Last Admin: 02/22/21 14:36 Dose: 150 mls/hr Documented by: Potassium Chloride (Kcl 10meq/100ml) 10 meq in 100 mls @ 100 mls/hr IV Q1H BULL Stop: 02/22/21 17:59 Morphine Sulfate (Morphine 2 Mg/1 Ml Inj) 2 mg IV Q3H PRN PRN Reason: Pain, Moderate (4-6) Last Admin: 02/22/21 11:56 Dose: 2 mg Documented by: Ondansetron HCl (Ondansetron 4 Mg/2 Ml Inj) 4 mg IV Q6H PRN PRN Reason: N/V unrelieved by Reglan Review of Systems All systems: negative (none) Exam Vital Signs Pulse Ox 93 02/22/21 07:44 - General physical appearance Positive: well developed, well nourished, no distress - Eyes Positive: PERRL, normal occular movement - ENT Positive: normal pinna, normal nares, normal mucosa, no hearing loss, no congestion - Neck Positive: no masses, no bruits, trachea midline, no venous distension - Respiratory Positive: normal expansion, normal respiratory effort, clear to auscultation - Cardiovascular Rhythm: regular Heart Sounds: Present: S1 & S2. Absent: rub, click - Extremities Extremities: no ischemia, pulses symmetrical, No edema - Breasts Breasts: normal, no mass, no skin changes - Abdomen Abdomen: Present: soft, bowel sounds normal. Absent: tender, distended Hernia: none - Genitourinary Male Genitourinary: normal Female Genitourinary: normal - Integumentary no rash, no growths, no abnormal pigmentation - Neurologic Neurologic: alert and oriented to time, place and person, motor strength and sensation are grossly intact - Musculoskeletal normal gait, normal posture - Psychiatric Psychiatric: appropriate mood/affect, intact judgment & insight Results - Labs 02/22/21 08:21 02/22/21 08:21 Abnormal lab results 02/22/21 02/22/21 02/22/21 Range/Units 08:21 08:21 09:23 MCV 97 H (84-94) fl MCH 34 H (28-32) pg MCHC 35 H (32-34) % RDW 12.8 L (13.2-15.2) % Seg Neuts % (Manual) 81.0 H (40.0-70.0) % Lymphocytes % (Manual) 6.0 L (13.4-35.0) % Monocytes % (Manual) 12.0 H (0.0-7.3) % Lymphocytes # (Manual) 0.5 L (1.2-5.4) K/mm3 Monocytes # (Manual) 1.0 H (0.0-0.8) K/mm3 Sodium 134 L (137-145) mmol/L Potassium 3.3 L (3.6-5.0) mmol/L Chloride 86.6 L (98-107) mmol/L Carbon Dioxide 31 H (22-30) mmol/L BUN 70 H (9-20) mg/dL Creatinine 3.4 H (0.8-1.3) mg/dL Urine WBC (Auto) 9.0 H (0.0-6.0) /HPF Urine Creatinine (0.1-20.0) mg/dL Urine Total Protein (5-11.8) mg/dL 02/22/21 Range/Units Unknown MCV (84-94) fl MCH (28-32) pg MCHC (32-34) % RDW (13.2-15.2) % Seg Neuts % (Manual) (40.0-70.0) % Lymphocytes % (Manual) (13.4-35.0) % Monocytes % (Manual) (0.0-7.3) % Lymphocytes # (Manual) (1.2-5.4) K/mm3 Monocytes # (Manual) (0.0-0.8) K/mm3 Sodium (137-145) mmol/L Potassium (3.6-5.0) mmol/L Chloride (98-107) mmol/L Carbon Dioxide (22-30) mmol/L BUN (9-20) mg/dL Creatinine (0.8-1.3) mg/dL Urine WBC (Auto) (0.0-6.0) /HPF Urine Creatinine 198.5 H (0.1-20.0) mg/dL Urine Total Protein 38 H (5-11.8) mg/dL Diabetes panel 02/22/21 Range/Units 08:21 Sodium 134 L (137-145) mmol/L Potassium 3.3 L (3.6-5.0) mmol/L Chloride 86.6 L (98-107) mmol/L Carbon Dioxide 31 H (22-30) mmol/L BUN 70 H (9-20) mg/dL Creatinine 3.4 H (0.8-1.3) mg/dL Glucose 100 (75-100) mg/dL Calcium 9.1 (8.4-10.2) mg/dL AST 16 (5-40) units/L ALT 9 (7-56) units/L Alkaline Phosphatase 72 (35-129) units/L Total Protein 8.0 (6.3-8.2) g/dL Albumin 4.3 (3.9-5) g/dL Calcium panel 02/22/21 Range/Units 08:21 Calcium 9.1 (8.4-10.2) mg/dL Albumin 4.3 (3.9-5) g/dL Pituitary panel 02/22/21 Range/Units 08:21 Sodium 134 L (137-145) mmol/L Potassium 3.3 L (3.6-5.0) mmol/L Chloride 86.6 L (98-107) mmol/L Carbon Dioxide 31 H (22-30) mmol/L BUN 70 H (9-20) mg/dL Creatinine 3.4 H (0.8-1.3) mg/dL Glucose 100 (75-100) mg/dL Calcium 9.1 (8.4-10.2) mg/dL Adrenal panel 02/22/21 Range/Units 08:21 Sodium 134 L (137-145) mmol/L Potassium 3.3 L (3.6-5.0) mmol/L Chloride 86.6 L (98-107) mmol/L Carbon Dioxide 31 H (22-30) mmol/L BUN 70 H (9-20) mg/dL Creatinine 3.4 H (0.8-1.3) mg/dL Glucose 100 (75-100) mg/dL Calcium 9.1 (8.4-10.2) mg/dL Total Bilirubin 0.80 (0.1-1.2) mg/dL AST 16 (5-40) units/L ALT 9 (7-56) units/L Alkaline Phosphatase 72 (35-129) units/L Total Protein 8.0 (6.3-8.2) g/dL Albumin 4.3 (3.9-5) g/dL - Imaging CT scan - abdomen: report reviewed CT scan - pelvis: report reviewed Assessment and Plan - Patient Problems (1) SBO (small bowel obstruction) Current Visit: Yes Status: Acute Plan to address problem: 1) NG decompression 2) Correct dehydration 3) CBC, BMP & AXR in the am
[2021-02-22] MEDS: POTASSIUM CHLORIDE 10 MEQ 10 MEQ/100 ML BAG IV SCH ×2 (17:27→20:31)
[2021-02-22] MEDS: ONDANSETRON 4 MG/2 ML INJ IV PRN (18:37)
[2021-02-23] MEDS: ONDANSETRON 4 MG/2 ML INJ IV PRN (02:43)
[2021-02-23 06:30] LABS: Basophils % (Auto) 0.2 % (0.0-1.8); Eosinophils % (Auto) 0.1 % (0.0-4.3); Hematocrit 46.3 % (35.5-45.6); Hemoglobin 16.1 gm/dl (11.8-15.2); Lymphocytes # (Auto) 0.6 K/mm3 (1.2-5.4); Lymphocytes % (Auto) 6.1 % (13.4-35.0); Mean Corpuscular HGB Conc 35 % (32-34); Mean Corpuscular Volume 97 fl (84-94); Monocytes # (Auto) 0.9 K/mm3 (0.0-0.8); Monocytes % (Auto) 9.4 % (0.0-7.3); Platelet Count 211 K/mm3 (140-440); Red Blood Count 4.78 M/mm3 (3.65-5.03); Red Cell Distribution Width 12.9 % (13.2-15.2)
[2021-02-23 06:49] LABS: Calcium 8.9 mg/dL (8.4-10.2)
--- NOTE | 2021-02-23 08:32 | XRay Report ---
ABDOMEN 2 VIEWS INDICATION / CLINICAL INFORMATION: sbo. COMPARISON: 02/18/2020 FINDINGS: BOWEL: Multiple loops of dilated small bowel with air-fluid levels FREE AIR / EXTRALUMINAL GAS: None seen. CALCIFICATIONS: No significant abnormal calcifications. ADDITIONAL FINDINGS: None. LUNGS: Visualized lungs show no significant abnormality. SKELETAL STRUCTURES: No significant abnormality. IMPRESSION: 1. Small bowel obstruction Signer Name: Kris Howard MD Signed: 02/23/2021 8:27 AM Workstation Name: [id number]
--- NOTE | 2021-02-23 09:11 | Progress Note ---
Assessment and Plan Assessment and plan: High-grade small bowel obstruction -N.p.o., IV fluids, pain control -during my examination patient was given pain medication and general pain resolved -General surgery consulted -We will continue to monitor Hypotension -Likely due to poor oral intake, persistent nausea and vomiting -Patient was given bolus of IV fluids and corrected -We will continue with normal saline -Held blood pressure medications Acute renal failure -Likely due to dehydration, patient is on IV fluids -Nephrology consulted History of aortic aneurysm repair -CT did not show acute abnormalities -H&H is stable DVT prophylaxis -SCDs because patient may need surgery CODE STATUS -Full Disposition; admit to medical floor. Management plan was discussed with the patient and was in agreement with the plan of care. 02/23/2021 -Blood pressure was low this morning and was given a bolus of normal saline. Continue with normal saline at 150 mL/h -Slight improvement in creatinine level, patient is hypokalemic and was given po tassium -Nephrology consult appreciated -Patient was seen by general surgery and recommend NG tube decompression History Interval history: Patient was seen and evaluated this morning Patient admitted for high-grade small bowel obstruction and FAN Hospitalist Physical - Physical exam Narrative exam: Not in cardiopulmonary distress. The patient appeared well nourished and normally developed. Vital signs as documented. Head exam is unremarkable. No scleral icterus . Neck is without jugular venous distension, thyromegaly, or carotid bruits. Lungs are clear to auscultation. Cardiac exam reveals regular rate and Rhythm. Abdominal exam reveals normal bowel sounds, nontender, no organomegaly. Extremities are nonedematous and both femoral and pedal pulses are normal. [employer] GOL[employer] COACH: Alert and oriented 3. No focal weakness. - Constitutional Vitals: Temp Pulse Resp BP Pulse Ox 98.6 F 41 L 20 86/63 90 02/22/21 22:03 02/22/21 22:03 02/22/21 22:03 02/22/21 22:57 02/22/21 22:03 Results - Labs CBC & Chem 7: 02/23/21 05:24 02/23/21 05:24 Labs: Laboratory Last Values WBC 9.9 K/mm3 (4.5-11.0) 02/23/21 05:24 RBC 4.78 M/mm3 (3.65-5.03) 02/23/21 05:24 Hgb 16.1 gm/dl (11.8-15.2) H 02/23/21 05:24 Hct 46.3 % (35.5-45.6) H 02/23/21 05:24 MCV 97 fl (84-94) H 02/23/21 05:24 MCH 34 pg (28-32) H 02/23/21 05:24 MCHC 35 % (32-34) H 02/23/21 05:24 RDW 12.9 % (13.2-15.2) L 02/23/21 05:24 Plt Count 211 K/mm3 (140-440) 02/23/21 05:24 Lymph % (Auto) 6.1 % (13.4-35.0) L 02/23/21 05:24 [place] % (Auto) 9.4 % (0.0-7.3) H 02/23/21 05:24 Eos % (Auto) 0.1 % (0.0-4.3) 02/23/21 05:24 Baso % (Auto) 0.2 % (0.0-1.8) 02/23/21 05:24 Lymph # (Auto) 0.6 K/mm3 (1.2-5.4) L 02/23/21 05:24 [place] # (Auto) 0.9 K/mm3 (0.0-0.8) H 02/23/21 05:24 Eos # (Auto) 0.0 K/mm3 (0.0-0.4) 02/23/21 05:24 Baso # (Auto) 0.0 K/mm3 (0.0-0.1) 02/23/21 05:24 Add Manual Diff Complete 02/22/21 08:21 Total Counted 100 02/22/21 08:21 Seg Neutrophils % 84.2 % (40.0-70.0) H 02/23/21 05:24 Seg Neuts % (Manual) 81.0 % (40.0-70.0) H 02/22/21 08:21 Lymphocytes % (Manual) 6.0 % (13.4-35.0) L 02/22/21 08:21 Monocytes % (Manual) 12.0 % (0.0-7.3) H 02/22/21 08:21 Eosinophils % (Manual) 1.0 % (0.0-4.3) 02/22/21 08:21 Nucleated RBC % Not Reportable 02/22/21 08:21 Seg Neutrophils # 8.4 K/mm3 (1.8-7.7) H 02/23/21 05:24 Seg Neutrophils # Man 7.0 K/mm3 (1.8-7.7) 02/22/21 08:21 Band Neutrophils # 0.0 K/mm3 02/22/21 08:21 Lymphocytes # (Manual) 0.5 K/mm3 (1.2-5.4) L 02/22/21 08:21 Abs React Lymphs (Man) 0.0 K/mm3 02/22/21 08:21 Monocytes # (Manual) 1.0 K/mm3 (0.0-0.8) H 02/22/21 08:21 Eosinophils # (Manual) 0.1 K/mm3 (0.0-0.4) 02/22/21 08:21 Basophils # (Manual) 0.0 K/mm3 (0.0-0.1) 02/22/21 08:21 Metamyelocytes # 0.0 K/mm3 02/22/21 08:21 Myelocytes # 0.0 K/mm3 02/22/21 08:21 Promyelocytes # 0.0 K/mm3 02/22/21 08:21 Blast Cells # 0.0 K/mm3 02/22/21 08:21 WBC Morphology Not Reportable 02/22/21 08:21 WBC Morphology TNR 02/22/21 08:21 Hypersegmented Neuts Not Reportable 02/22/21 08:21 Hyposegmented Neuts Not Reportable 02/22/21 08:21 Hypogranular Neuts Not Reportable 02/22/21 08:21 Smudge Cells Not Reportable 02/22/21 08:21 Toxic Granulation Not Reportable 02/22/21 08:21 Toxic Vacuolation Not Reportable 02/22/21 08:21 Dohle Bodies Not Reportable 02/22/21 08:21 Pelger-Huet Anomaly Not Reportable 02/22/21 08:21 An Rods Not Reportable 02/22/21 08:21 Platelet Estimate Consistent w auto 02/22/21 08:21 Clumped Platelets Not Reportable 02/22/21 08:21 Plt Clumps, EDTA Not Reportable 02/22/21 08:21 Large Platelets Not Reportable 02/22/21 08:21 Giant Platelets Not Reportable 02/22/21 08:21 Platelet Satelliting Not Reportable 02/22/21 08:21 Plt Morphology Comment Not Reportable 02/22/21 08:21 RBC Morphology Not Reportable 02/22/21 08:21 Dimorphic RBCs Not Reportable 02/22/21 08:21 Polychromasia Not Reportable 02/22/21 08:21 Hypochromasia Not Reportable 02/22/21 08:21 Poikilocytosis Not Reportable 02/22/21 08:21 Anisocytosis Not Reportable 02/22/21 08:21 Microcytosis Not Reportable 02/22/21 08:21 Macrocytosis Not Reportable 02/22/21 08:21 Spherocytes Not Reportable 02/22/21 08:21 Pappenheimer Bodies Not Reportable 02/22/21 08:21 Sickle Cells Not Reportable 02/22/21 08:21 Target Cells Not Reportable 02/22/21 08:21 Tear Drop Cells Not Reportable 02/22/21 08:21 Ovalocytes Not Reportable 02/22/21 08:21 Helmet Cells Not Reportable 02/22/21 08:21 Wood-Berne Bodies Not Reportable 02/22/21 08:21 [place] Rings Not Reportable 02/22/21 08:21 Minnie Cells Few 02/22/21 08:21 Bite Cells Not Reportable 02/22/21 08:21 Crenated Cell Not Reportable 02/22/21 08:21 Elliptocytes Few 02/22/21 08:21 Acanthocytes (Spur) Not Reportable 02/22/21 08:21 Rouleaux Not Reportable 02/22/21 08:21 Hemoglobin C Crystals Not Reportable 02/22/21 08:21 Schistocytes Rare 02/22/21 08:21 Malaria parasites Not Reportable 02/22/21 08:21 Jermain Bodies Not Reportable 02/22/21 08:21 Hem Pathologist Commnt No 02/22/21 08:21 Sodium 137 mmol/L (137-145) 02/23/21 05:24 Potassium 3.0 mmol/L (3.6-5.0) L 02/23/21 05:24 Chloride 91.0 mmol/L (98-107) L 02/23/21 05:24 Carbon Dioxide 28 mmol/L (22-30) 02/23/21 05:24 Anion Gap 21 mmol/L 02/23/21 05:24 BUN 85 mg/dL (9-20) H 02/23/21 05:24 Creatinine 2.8 mg/dL (0.8-1.3) H 02/23/21 05:24 Estimated GFR 27 ml/min 02/23/21 05:24 BUN/Creatinine Ratio 30 % 02/23/21 05:24 Glucose 95 mg/dL (75-100) 02/23/21 05:24 Calcium 8.9 mg/dL (8.4-10.2) 02/23/21 05:24 Phosphorus 5.40 mg/dL (2.5-4.5) H 02/23/21 05:24 Magnesium 2.90 mg/dL (1.7-2.3) H 02/23/21 05:24 Total Bilirubin 0.80 mg/dL (0.1-1.2) 02/22/21 08:21 Direct Bilirubin 0.2 mg/dL (0-0.2) 02/22/21 08:21 Indirect Bilirubin 0.6 mg/dL 02/22/21 08:21 AST 16 units/L (5-40) 02/22/21 08:21 ALT 9 units/L (7-56) 02/22/21 08:21 Alkaline Phosphatase 72 units/L (35-129) 02/22/21 08:21 Total Protein 8.0 g/dL (6.3-8.2) 02/22/21 08:21 Albumin 4.3 g/dL (3.9-5) 02/22/21 08:21 Albumin/Globulin Ratio 1.2 % 02/22/21 08:21 Lipase 18 units/L (13-60) 02/22/21 08:21 Urine Color Bianca (Yellow) 02/22/21 09:23 Urine Turbidity Cloudy (Clear) 02/22/21 09:23 Urine pH 5.0 (5.0-7.0) 02/22/21 09:23 Ur Specific Cade 1.017 (1.003-1.030) 02/22/21 09:23 Urine Protein 100 mg/dl mg/dL (Negative) 02/22/21 09:23 Urine Glucose (UA) Neg mg/dL (Negative) 02/22/21 09:23 Urine Ketones Neg mg/dL (Negative) 02/22/21 09:23 Urine Blood Mod (Negative) 02/22/21 09:23 Urine Nitrite Neg (Negative) 02/22/21 09:23 Urine Bilirubin Neg (Negative) 02/22/21 09:23 Urine Urobilinogen 2.0 mg/dL (<2.0) 02/22/21 09:23 Ur Leukocyte Esterase Neg (Negative) 02/22/21 09:23 Urine WBC (Auto) 9.0 /HPF (0.0-6.0) H 02/22/21 09:23 Urine RBC (Auto) 10.0 /HPF (0.0-6.0) 02/22/21 09:23 U Epithel Cells (Auto) 2.0 /HPF (0-13.0) 02/22/21 09:23 Hyaline Casts 23 /LPF 02/22/21 09:23 Urine Mucus 2+ /HPF 02/22/21 09:23 Urine Eosinophils None seen (None Seen) 02/22/21 Unknown Urine Creatinine 198.5 mg/dL (0.1-20.0) H 02/22/21 Unknown Urine Microalbumin 2.6 mg/dL (0.1-34.0) 02/22/21 Unknown Microalb/Creat Ratio 13.0 ug/mg 02/22/21 Unknown Protein/Creatinin Ratio 0.19 02/22/21 Unknown Urine Sodium 11 mmol/L 02/22/21 Unknown Urine Total Protein 38 mg/dL (5-11.8) H 02/22/21 Unknown Lucero/IV: Voiding Method Urinal Active Medications - Current Medications Current Medications: Generic Name Dose Route Start Last Admin Trade Name Freq PRN Reason Stop Dose Admin Ceftriaxone Sodium 1 gm in 50 mls @ 100 mls/hr 02/22/21 12:00 02/22/21 11:56 Rocephin/Ns 1 Gm/50 Ml IV 100 mls/hr Q24H BULL Administration Protocol Sodium Chloride 1,000 mls @ 150 mls/hr 02/22/21 11:30 02/22/21 14:36 Nacl 0.9% 1000 Ml IV 150 mls/hr DIRECT BULL Administration Potassium Chloride 10 meq in 100 mls @ 100 mls/hr 02/23/21 10:00 Kcl 10meq/100ml IV 02/23/21 13:59 Q1H BULL Morphine Sulfate 2 mg 02/22/21 11:30 02/22/21 17:32 Morphine 2 Mg/1 Ml Inj IV 2 mg Q3H PRN Administration Pain, Moderate (4-6) Ondansetron HCl 4 mg 02/22/21 11:29 02/23/21 02:43 Ondansetron 4 Mg/2 Ml Inj IV 4 mg Q6H PRN Administration N/V unrelieved by Baldomero
--- NOTE | 2021-02-23 09:13 | Progress Note ---
Assessment and Plan High Grade Small Bowel Obstruction FAN possibly 2/2 prerenal etiology in setting of vomiting and poor oral intake, hypotension, no obstruction Hypotension Hypokalemia Hx of AAA repair Plan: - Renal function reviewed, SCr level was 2.8 today, yesterday's SCr level was 3.4 - Most recent SCr level in [facility] prior to this admission was 0.9 on 02/18/20. Pt had elevated SCr level of 2.3 on 02/15/20, but normalized on 02/18/20 - On 0.9% NS infusion at 150 ml/hr - Replete potassium - UA showed elevated rbc, no significant proteinuria, no urine eosinophils - No hydronephrosis noted on CT AP w/o contrast study on 02/22/21 - Started on Abx - Currently NPO - Renally dose meds - Lucero Catheter: No - Renal plan reviewed by Dr Samson Subjective Date of service: 02/23/21 Interval history: Pt seen in bed, states he has less nausea today, no acute distress, no family at bedside Objective - Vital Signs Vital signs: Vital Signs - 12hr 02/22/21 02/22/21 22:03 22:57 Temperature 98.6 F Pulse Rate 41 L Respiratory 20 Rate Blood Pressure 83/59 86/63 O2 Sat by Pulse 90 Oximetry - General Appearance General appearance: other (awake) EENT: ATNC Neck: no JVD Respiratory: Present: Decreased Breath Sounds Cardiology: regular, S1S2 Gastrointestinal: other (soft, nasogastric tube in place to suction) Integumentary: warm and dry Neurologic: alert and oriented x3 Musculoskeletal: other (no edema to BLE) Psychiatric: cooperative - Lab 02/23/21 05:24 02/23/21 05:24 Most recent lab results Calcium 8.9 mg/dL (8.4-10.2) 02/23/21 05:24 Phosphorus 5.40 mg/dL (2.5-4.5) H 02/23/21 05:24 Magnesium 2.90 mg/dL (1.7-2.3) H 02/23/21 05:24 Urine Creatinine 198.5 mg/dL (0.1-20.0) H 02/22/21 Unknown Urine Sodium 11 mmol/L 02/22/21 Unknown Urine Total Protein 38 mg/dL (5-11.8) H 02/22/21 Unknown Medications & Allergies - Medications Allergies/Adverse Reactions: Allergies No Known Allergies Allergy (Verified 02/22/21 15:01) Home Medications: Home Medications Medication Instructions Recorded Confirmed Last Taken Type AtorvaSTATin 40 mg PO QHS 02/15/20 02/22/21 Unknown History Metoprolol Succinate 50 mg PO DAILY 02/15/20 02/22/21 1 Day Ago History ~02/21/21 Active Medications: Generic Name Dose Route Start Last Admin Trade Name Freq PRN Reason Stop Dose Admin Ceftriaxone Sodium 1 gm in 50 mls @ 100 mls/hr 02/22/21 12:00 02/22/21 11:56 Rocephin/Ns 1 Gm/50 Ml IV 100 mls/hr Q24H BULL Administration Protocol Sodium Chloride 1,000 mls @ 150 mls/hr 02/22/21 11:30 02/22/21 14:36 Nacl 0.9% 1000 Ml IV 150 mls/hr DIRECT BULL Administration Potassium Chloride 10 meq in 100 mls @ 100 mls/hr 02/23/21 10:00 Kcl 10meq/100ml IV 02/23/21 13:59 Q1H BULL Morphine Sulfate 2 mg 02/22/21 11:30 02/22/21 17:32 Morphine 2 Mg/1 Ml Inj IV 2 mg Q3H PRN Administration Pain, Moderate (4-6) Ondansetron HCl 4 mg 02/22/21 11:29 02/23/21 02:43 Ondansetron 4 Mg/2 Ml Inj IV 4 mg Q6H PRN Administration N/V unrelieved by Baldomero
[2021-02-23] MEDS ORDERED: SODIUM CHLORIDE 0.9% 1000 ML 1,000 ML IV SCH (10:00)
[2021-02-23] MEDS: POTASSIUM CHLORIDE 10 MEQ 10 MEQ/100 ML BAG IV SCH ×4 (12:48→19:12)
[2021-02-23] MEDS: SODIUM CHLORIDE 0.9% 1000 ML 1,000 ML IV SCH (12:48)
[2021-02-23 16:33] LABS: Calcium 8.5 mg/dL (8.4-10.2)
[2021-02-23] MEDS: cefTRIAXone/NS 1 GM/50 ML 1 GM/50 ML BAG IV SCH (18:40)
--- NOTE | 2021-02-23 18:46 | Progress Note ---
Assessment and Plan - Patient Problems (1) SBO (small bowel obstruction) Current Visit: Yes Status: Acute Plan to address problem: 1) Continue NG decompression 2) CBC, BMP and AXR tomorrow morning 3) Exploratory laparotomy and FACUNDO tomorrow if no improvement. Subjective Date of service: 02/23/21 Patient Reports: Positive: no new complaints, no flatus, no bowel movement (Feels about the same.) Objective - Abdomen soft, bowel sounds hypoactive (NT, ND) - Labs 02/23/21 05:24 02/23/21 15:49 Diabetes panel 02/23/21 02/23/21 Range/Units 05:24 15:49 Sodium 137 137 (137-145) mmol/L Potassium 3.0 L 3.3 L (3.6-5.0) mmol/L Chloride 91.0 L 90.0 L (98-107) mmol/L Carbon Dioxide 28 30 (22-30) mmol/L BUN 85 H 89 H (9-20) mg/dL Creatinine 2.8 H 3.2 H (0.8-1.3) mg/dL Glucose 95 106 H (75-100) mg/dL Calcium 8.9 8.5 (8.4-10.2) mg/dL Calcium panel 02/23/21 02/23/21 Range/Units 05:24 15:49 Calcium 8.9 8.5 (8.4-10.2) mg/dL Phosphorus 5.40 H (2.5-4.5) mg/dL Pituitary panel 02/23/21 02/23/21 Range/Units 05:24 15:49 Sodium 137 137 (137-145) mmol/L Potassium 3.0 L 3.3 L (3.6-5.0) mmol/L Chloride 91.0 L 90.0 L (98-107) mmol/L Carbon Dioxide 28 30 (22-30) mmol/L BUN 85 H 89 H (9-20) mg/dL Creatinine 2.8 H 3.2 H (0.8-1.3) mg/dL Glucose 95 106 H (75-100) mg/dL Calcium 8.9 8.5 (8.4-10.2) mg/dL Adrenal panel 02/23/21 02/23/21 Range/Units 05:24 15:49 Sodium 137 137 (137-145) mmol/L Potassium 3.0 L 3.3 L (3.6-5.0) mmol/L Chloride 91.0 L 90.0 L (98-107) mmol/L Carbon Dioxide 28 30 (22-30) mmol/L BUN 85 H 89 H (9-20) mg/dL Creatinine 2.8 H 3.2 H (0.8-1.3) mg/dL Glucose 95 106 H (75-100) mg/dL Calcium 8.9 8.5 (8.4-10.2) mg/dL - Imaging Abdominal x-ray: report reviewed Additional Studies: I's & O's reviewed.
[2021-02-23] MEDS: MORPHINE 2 MG/1 ML INJ IV PRN (22:06)
[2021-02-24 05:24] LABS: Hematocrit 45.5 % (35.5-45.6); Hemoglobin 15.8 gm/dl (11.8-15.2); Mean Corpuscular HGB Conc 35 % (32-34); Mean Corpuscular Volume 97 fl (84-94); Platelet Count 206 K/mm3 (140-440); Red Blood Count 4.68 M/mm3 (3.65-5.03); Red Cell Distribution Width 12.8 % (13.2-15.2)
[2021-02-24 05:44] LABS: Calcium 8.6 mg/dL (8.4-10.2)
[2021-02-24] MEDS: SODIUM CHLORIDE 0.9% 1000 ML 1,000 ML IV SCH ×2 (06:27→15:32)
--- NOTE | 2021-02-24 09:19 | XRay Report ---
ABDOMEN 2 VIEWS INDICATION / CLINICAL INFORMATION: sbo. COMPARISON: February 23 2021 FINDINGS: TUBES / LINES: Interval placement of NG tube with its tip projected in appropriate position of left u pper quadrant abdomen. BOWEL GAS PATTERN: Worsened dilation of small bowel noted of the central abdomen, the largest now gilberto suring 7 cm in cross sectional diameter. FREE AIR / EXTRALUMINAL GAS: None seen. ADDITIONAL FINDINGS: Postsurgical findings noted over the upper abdomen. CHEST: 1.9 cm rounded opacity in the right perihilar region. IMPRESSION: 1. Interval placement of NG tube noted in appropriate position. 2. Worsened mechanical small bowel obstruction with interval enlargement of dilated small bowel loops when compared to 02/23/2021. 3. 1.9 cm rounded opacity in the right perihilar region concerning for pulmonary nodule. Noncontrast CT chest is recommended for further evaluation. Signer Name: Peter Ortiz MD Signed: 02/24/2021 9:15 AM Workstation Name: [id number]
--- NOTE | 2021-02-24 09:34 | Progress Note ---
Assessment and Plan Assessment and plan: High-grade small bowel obstruction -N.p.o., IV fluids, pain control -during my examination patient was given pain medication and general pain resolved -General surgery consulted -We will continue to monitor Hypotension -Likely due to poor oral intake, persistent nausea and vomiting -Patient was given bolus of IV fluids and corrected -We will continue with normal saline -Held blood pressure medications Acute renal failure -Likely due to dehydration, patient is on IV fluids -Nephrology consulted History of aortic aneurysm repair -CT did not show acute abnormalities -H&H is stable DVT prophylaxis -SCDs because patient may need surgery CODE STATUS -Full Disposition; admit to medical floor. Management plan was discussed with the patient and was in agreement with the plan of care. 02/23/2021 -Blood pressure was low this morning and was given a bolus of normal saline. Continue with normal saline at 150 mL/h -Slight improvement in creatinine level, patient is hypokalemic and was given po tassium -Nephrology consult appreciated -Patient was seen by general surgery and recommend NG tube decompression 02/24/2021 -FAN is improving, continue with IV fluids. Nephrology consult appreciated. -Abdominal x-ray this morning showed worsening of small bowel obstruction, patient was evaluated by general surgery and considering to do laparotomy and lysis of adhesion, will follow with the surgeon -Chest x-ray showed 1.7 cm mass on the right perihilar area, I ordered a CT chest without contrast -Urine culture is negative and I stop IV antibiotic History Interval history: Patient was seen and evaluated this morning No bowel movement, on NG tube decompression Patient admitted for high-grade small bowel obstruction and FAN Hospitalist Physical - Physical exam Narrative exam: Not in cardiopulmonary distress. The patient appeared well nourished and normally developed. Vital signs as documented. Head exam is unremarkable. No scleral icterus . Neck is without jugular venous distension, thyromegaly, or carotid bruits. Lungs are clear to auscultation. Cardiac exam reveals regular rate and Rhythm. Abdominal exam reveals normal bowel sounds, nontender, no organomegaly. Extremities are nonedematous and both femoral and pedal pulses are normal. VIBRATION ENGINEER: Alert and oriented 3. No focal weakness. - Constitutional Vitals: Temp Pulse Resp BP Pulse Ox 97.9 F 97 H 20 104/78 99 02/23/21 21:19 02/23/21 21:19 02/23/21 21:19 02/23/21 21:19 02/23/21 21:19 Results - Labs CBC & Chem 7: 02/24/21 05:07 02/24/21 05:07 Labs: Laboratory Last Values WBC 11.0 K/mm3 (4.5-11.0) 02/24/21 05:07 RBC 4.68 M/mm3 (3.65-5.03) 02/24/21 05:07 Hgb 15.8 gm/dl (11.8-15.2) H 02/24/21 05:07 Hct 45.5 % (35.5-45.6) 02/24/21 05:07 MCV 97 fl (84-94) H 02/24/21 05:07 MCH 34 pg (28-32) H 02/24/21 05:07 MCHC 35 % (32-34) H 02/24/21 05:07 RDW 12.8 % (13.2-15.2) L 02/24/21 05:07 Plt Count 206 K/mm3 (140-440) 02/24/21 05:07 Lymph % (Auto) 6.1 % (13.4-35.0) L 02/23/21 05:24 [place] % (Auto) 9.4 % (0.0-7.3) H 02/23/21 05:24 Eos % (Auto) 0.1 % (0.0-4.3) 02/23/21 05:24 Baso % (Auto) 0.2 % (0.0-1.8) 02/23/21 05:24 Lymph # (Auto) 0.6 K/mm3 (1.2-5.4) L 02/23/21 05:24 [place] # (Auto) 0.9 K/mm3 (0.0-0.8) H 02/23/21 05:24 Eos # (Auto) 0.0 K/mm3 (0.0-0.4) 02/23/21 05:24 Baso # (Auto) 0.0 K/mm3 (0.0-0.1) 02/23/21 05:24 Add Manual Diff Complete 02/22/21 08:21 Total Counted 100 02/22/21 08:21 Seg Neutrophils % 84.2 % (40.0-70.0) H 02/23/21 05:24 Seg Neuts % (Manual) 81.0 % (40.0-70.0) H 02/22/21 08:21 Lymphocytes % (Manual) 6.0 % (13.4-35.0) L 02/22/21 08:21 Monocytes % (Manual) 12.0 % (0.0-7.3) H 02/22/21 08:21 Eosinophils % (Manual) 1.0 % (0.0-4.3) 02/22/21 08:21 Nucleated RBC % Not Reportable 02/22/21 08:21 Seg Neutrophils # 8.4 K/mm3 (1.8-7.7) H 02/23/21 05:24 Seg Neutrophils # Man 7.0 K/mm3 (1.8-7.7) 02/22/21 08:21 Band Neutrophils # 0.0 K/mm3 02/22/21 08:21 Lymphocytes # (Manual) 0.5 K/mm3 (1.2-5.4) L 02/22/21 08:21 Abs React Lymphs (Man) 0.0 K/mm3 02/22/21 08:21 Monocytes # (Manual) 1.0 K/mm3 (0.0-0.8) H 02/22/21 08:21 Eosinophils # (Manual) 0.1 K/mm3 (0.0-0.4) 02/22/21 08:21 Basophils # (Manual) 0.0 K/mm3 (0.0-0.1) 02/22/21 08:21 Metamyelocytes # 0.0 K/mm3 02/22/21 08:21 Myelocytes # 0.0 K/mm3 02/22/21 08:21 Promyelocytes # 0.0 K/mm3 02/22/21 08:21 Blast Cells # 0.0 K/mm3 02/22/21 08:21 WBC Morphology Not Reportable 02/22/21 08:21 WBC Morphology TNR 02/22/21 08:21 Hypersegmented Neuts Not Reportable 02/22/21 08:21 Hyposegmented Neuts Not Reportable 02/22/21 08:21 Hypogranular Neuts Not Reportable 02/22/21 08:21 Smudge Cells Not Reportable 02/22/21 08:21 Toxic Granulation Not Reportable 02/22/21 08:21 Toxic Vacuolation Not Reportable 02/22/21 08:21 Dohle Bodies Not Reportable 02/22/21 08:21 Pelger-Huet Anomaly Not Reportable 02/22/21 08:21 An Rods Not Reportable 02/22/21 08:21 Platelet Estimate Consistent w auto 02/22/21 08:21 Clumped Platelets Not Reportable 02/22/21 08:21 Plt Clumps, EDTA Not Reportable 02/22/21 08:21 Large Platelets Not Reportable 02/22/21 08:21 Giant Platelets Not Reportable 02/22/21 08:21 Platelet Satelliting Not Reportable 02/22/21 08:21 Plt Morphology Comment Not Reportable 02/22/21 08:21 RBC Morphology Not Reportable 02/22/21 08:21 Dimorphic RBCs Not Reportable 02/22/21 08:21 Polychromasia Not Reportable 02/22/21 08:21 Hypochromasia Not Reportable 02/22/21 08:21 Poikilocytosis Not Reportable 02/22/21 08:21 Anisocytosis Not Reportable 02/22/21 08:21 Microcytosis Not Reportable 02/22/21 08:21 Macrocytosis Not Reportable 02/22/21 08:21 Spherocytes Not Reportable 02/22/21 08:21 Pappenheimer Bodies Not Reportable 02/22/21 08:21 Sickle Cells Not Reportable 02/22/21 08:21 Target Cells Not Reportable 02/22/21 08:21 Tear Drop Cells Not Reportable 02/22/21 08:21 Ovalocytes Not Reportable 02/22/21 08:21 Helmet Cells Not Reportable 02/22/21 08:21 [place] Bodies Not Reportable 02/22/21 08:21 [place] Rings Not Reportable 02/22/21 08:21 Minnie Cells Few 02/22/21 08:21 Bite Cells Not Reportable 02/22/21 08:21 Crenated Cell Not Reportable 02/22/21 08:21 Elliptocytes Few 02/22/21 08:21 Acanthocytes (Spur) Not Reportable 02/22/21 08:21 Rouleaux Not Reportable 02/22/21 08:21 Hemoglobin C Crystals Not Reportable 02/22/21 08:21 Schistocytes Rare 02/22/21 08:21 Malaria parasites Not Reportable 02/22/21 08:21 Jermain Bodies Not Reportable 02/22/21 08:21 Hem Pathologist Commnt No 02/22/21 08:21 Sodium 138 mmol/L (137-145) 02/24/21 05:07 Potassium 3.2 mmol/L (3.6-5.0) L 02/24/21 05:07 Chloride 93.5 mmol/L (98-107) L 02/24/21 05:07 Carbon Dioxide 31 mmol/L (22-30) H 02/24/21 05:07 Anion Gap 17 mmol/L 02/24/21 05:07 BUN 90 mg/dL (9-20) H 02/24/21 05:07 Creatinine 2.5 mg/dL (0.8-1.3) H 02/24/21 05:07 Estimated GFR 31 ml/min 02/24/21 05:07 BUN/Creatinine Ratio 36 % 02/24/21 05:07 Glucose 108 mg/dL (75-100) H 02/24/21 05:07 Calcium 8.6 mg/dL (8.4-10.2) 02/24/21 05:07 Phosphorus 5.40 mg/dL (2.5-4.5) H 02/23/21 05:24 Magnesium 2.90 mg/dL (1.7-2.3) H 02/23/21 05:24 Total Bilirubin 0.80 mg/dL (0.1-1.2) 02/22/21 08:21 Direct Bilirubin 0.2 mg/dL (0-0.2) 02/22/21 08:21 Indirect Bilirubin 0.6 mg/dL 02/22/21 08:21 AST 16 units/L (5-40) 02/22/21 08:21 ALT 9 units/L (7-56) 02/22/21 08:21 Alkaline Phosphatase 72 units/L (35-129) 02/22/21 08:21 Total Protein 8.0 g/dL (6.3-8.2) 02/22/21 08:21 Albumin 4.3 g/dL (3.9-5) 02/22/21 08:21 Albumin/Globulin Ratio 1.2 % 02/22/21 08:21 Lipase 18 units/L (13-60) 02/22/21 08:21 Urine Color Bianca (Yellow) 02/22/21 09:23 Urine Turbidity Cloudy (Clear) 02/22/21 09:23 Urine pH 5.0 (5.0-7.0) 02/22/21 09:23 Ur Specific [place] 1.017 (1.003-1.030) 02/22/21 09:23 Urine Protein 100 mg/dl mg/dL (Negative) 02/22/21 09:23 Urine Glucose (UA) Neg mg/dL (Negative) 02/22/21 09:23 Urine Ketones Neg mg/dL (Negative) 02/22/21 09:23 Urine Blood Mod (Negative) 02/22/21 09:23 Urine Nitrite Neg (Negative) 02/22/21 09:23 Urine Bilirubin Neg (Negative) 02/22/21 09:23 Urine Urobilinogen 2.0 mg/dL (<2.0) 02/22/21 09:23 Ur Leukocyte Esterase Neg (Negative) 02/22/21 09:23 Urine WBC (Auto) 9.0 /HPF (0.0-6.0) H 02/22/21 09:23 Urine RBC (Auto) 10.0 /HPF (0.0-6.0) 02/22/21 09:23 U Epithel Cells (Auto) 2.0 /HPF (0-13.0) 02/22/21 09:23 Hyaline Casts 23 /LPF 02/22/21 09:23 Urine Mucus 2+ /HPF 02/22/21 09:23 Urine Eosinophils None seen (None Seen) 02/22/21 Unknown Urine Creatinine 198.5 mg/dL (0.1-20.0) H 02/22/21 Unknown Urine Microalbumin 2.6 mg/dL (0.1-34.0) 02/22/21 Unknown Microalb/Creat Ratio 13.0 ug/mg 02/22/21 Unknown Protein/Creatinin Ratio 0.19 02/22/21 Unknown Urine Sodium 11 mmol/L 02/22/21 Unknown Urine Total Protein 38 mg/dL (5-11.8) H 02/22/21 Unknown Microbiology: Microbiology 02/22/21 09:23 Urine,Clean Catch Urine Culture - Preliminary NO GROWTH AFTER 24 HOURS Lucero/IV: Voiding Method Urinal Active Medications - Current Medications Current Medications: Generic Name Dose Route Start Last Admin Trade Name Freq PRN Reason Stop Dose Admin Ceftriaxone Sodium 1 gm in 50 mls @ 100 mls/hr 02/22/21 12:00 02/23/21 23:58 Rocephin/Ns 1 Gm/50 Ml IV Infused Q24H BULL Infusion Protocol Sodium Chloride 1,000 mls @ 150 mls/hr 02/22/21 11:30 02/24/21 06:27 Nacl 0.9% 1000 Ml IV 150 mls/hr DIRECT BULL Administration Potassium Chloride 10 meq in 100 mls @ 100 mls/hr 02/24/21 10:00 Kcl 10meq/100ml IV 02/24/21 13:59 Q1H BULL Morphine Sulfate 2 mg 02/22/21 11:30 02/23/21 22:06 Morphine 2 Mg/1 Ml Inj IV 2 mg Q3H PRN Administration Pain, Moderate (4-6) Ondansetron HCl 4 mg 02/22/21 11:29 02/23/21 02:43 Ondansetron 4 Mg/2 Ml Inj IV 4 mg Q6H PRN Administration N/V unrelieved by Baldomero
--- NOTE | 2021-02-24 09:54 | Anesthesia Day of Surgery ---
<JOSE BEASLEY - Last Filed: 02/24/21 09:54> Anesthesia Day of Surgery - Day of Surgery Patient Examined: Yes Patient H&P Reviewed: Yes Patient is NPO: Yes Beta Blockers: Yes <MIA MARTINEZ - Last Filed: 02/24/21 13:02> Anesthesia Day of Surgery - Day of Surgery Beta Blockers: No
--- NOTE | 2021-02-24 09:54 | Anesthesia Consultation ---
<DIEGOJOSE PALMER - Last Filed: 02/24/21 09:51> Anesthesia Consult and Med Hx Date of service: 02/24/21 - Airway Anesthetic Teeth Evaluation: Good, Bridges (upper front) ROM Head & Neck: Adequate Mental/Hyoid Distance: Adequate Mallampati Class: Class II Intubation Access Assessment: Probably Good - Pre-Operative Health Status ASA Pre-Surgery Classification: ASA3 Proposed Anesthetic Plan: General - Pulmonary Hx Asthma: No COPD: No Hx Pneumonia: No - Cardiovascular System Hx Hypertension: Yes Hx Coronary Artery Disease: No (high cholesterol) Hx Peripheral Vascular Disease: Yes (h/o aortic aneurysm repair) - Gastrointestinal Hx Gastroesophageal Reflux Disease: Yes (small bowel obstruction) - Endocrine Hx End Stage Renal Disease: No - Other Systems Hx Cancer: No <MIA MARTINEZ - Last Filed: 02/24/21 13:03> Anesthesia Consult and Med Hx - Airway Anesthetic Teeth Evaluation: Bridges ROM Head & Neck: Adequate Mental/Hyoid Distance: Adequate Mallampati Class: Class II Intubation Access Assessment: Probably Good - Pre-Operative Health Status ASA Pre-Surgery Classification: ASA3 Proposed Anesthetic Plan: General - Cardiovascular System Hx Hypertension: Yes Hx Peripheral Vascular Disease: Yes - Gastrointestinal Hx Gastroesophageal Reflux Disease: No (SBO) - Endocrine Hx Renal Disease: Yes (FAN) - Additional Comments Anesthesia Medical History Comments: Scheduled for ex-lap. Patient confirmed OK to receive blood and signed written consent. Will send type and screen. Plan GETA w/ stnd ASA monitors.
[2021-02-24] MEDS: POTASSIUM CHLORIDE 10 MEQ 10 MEQ/100 ML BAG IV SCH ×4 (10:51→18:32)
--- NOTE | 2021-02-24 11:08 | Cat Scan Report ---
CT CHEST WITHOUT CONTRAST INDICATION / CLINICAL INFORMATION: Right perihilar mass. TECHNIQUE: Axial CT images were obtained through the chest without contrast. All CT scans at this [facility] ation are performed using CT dose reduction for ALARA by means of automated exposure control. COMPARISON: Chest radiograph performed earlier today and CTA of the chest dated 07/17/2018 FINDINGS: HEART: No significant abnormality. CORONARY ARTERY CALCIFICATION: None. THORACIC AORTA: There is dilatation of the aortic arch which measures up to 4.3 cm in diameter. The a rch measures 4.1 cm in 2018. MEDIASTINUM / KERRI: No significant abnormality. PLEURA: No pleural effusion. No pneumothorax. LUNGS: There are patchy airspace opacities in the right upper lobe and in the right lower lobe some o f which corresponds to the density seen on the recent chest radiograph. The appearance is characteris tic of pneumonia ADDITIONAL FINDINGS: None. UPPER ABDOMEN: There is a nasogastric tube in the gastric fundus. The stomach is distended with air a nd a small amount of fluid. SKELETAL SYSTEM: No significant abnormality. IMPRESSION: 1. There are patchy airspace opacities in the right upper and right lower lobe which account for the density seen on the chest imaging performed earlier today. The appearance is characteristic of pneumo nicole. 2. There is mild aneurysmal dilatation of the aortic arch which measures 4.3 cm. This measured 4.1 cm on the prior study from 2018. Signer Name: Jony Schwartz MD Signed: 02/24/2021 11:04 AM Workstation Name: [id number]
[2021-02-24] MEDS ORDERED: HYDROmorphone 1 MG/1 ML INJ ONE ×2 (11:18→14:00)
[2021-02-24] MEDS ORDERED: propofoL 200 MG/20 ML VIAL IV ONE (11:18)
[2021-02-24] MEDS ORDERED: SUCCINYLCHOLINE CHLORIDE 200 MG/10 ML INJ MDV ONE (11:20)
[2021-02-24] MEDS ORDERED: ROCURONIUM 50 MG/5 ML INJ IV ONE (11:21)
[2021-02-24] MEDS ORDERED: LIDOCAINE MPF (2%) 20 MG/1 ML VIAL 5 ML ONE (11:21)
[2021-02-24] MEDS ORDERED: ceFAZolin/Water 2 GM/20 ML 2 GM/20 ML SYRINGE IV ONE (11:55)
--- NOTE | 2021-02-24 12:16 | Progress Note ---
Assessment and Plan Assessment: High Grade Small Bowel Obstruction FAN possibly 2/2 prerenal etiology in setting of vomiting and poor oral intake, hypotension, no obstruction Hypotension Hypokalemia Hx of AAA repair Plan: - Renal function reviewed, SCr level was 2.5 today, yesterday's SCr level was 3.2, has good UOP of 1100 ml - Pt had elevated SCr level of 2.3 on 02/15/20, but normalized on 02/18/20 to 0.9 - On 0.9% NS infusion at 150 ml/hr - Replete potassium as needed, IV KCL ordered noted - UA showed elevated rbc, no significant proteinuria, no urine eosinophils - No hydronephrosis noted on CT AP w/o contrast study on 02/22/21 - On Abx. Currently NPO - Renally dose medications - Avoid nephrotoxic agents - Lucero Catheter: No - Renal plan reviewed by Dr. Samson Subjective Date of service: 02/24/21 Principal diagnosis: ARF Interval history: Patient off floor for surgery Objective - Vital Signs Vital signs: Vital Signs - 12hr 02/24/21 09:52 Temperature 97.9 F Pulse Rate 98 H Respiratory 20 Rate O2 Sat by Pulse 100 Oximetry - Lab 02/24/21 05:07 02/24/21 05:07 Most recent lab results Calcium 8.6 mg/dL (8.4-10.2) 02/24/21 05:07 Phosphorus 5.40 mg/dL (2.5-4.5) H 02/23/21 05:24 Magnesium 2.90 mg/dL (1.7-2.3) H 02/23/21 05:24 Urine Creatinine 198.5 mg/dL (0.1-20.0) H 02/22/21 Unknown Urine Sodium 11 mmol/L 02/22/21 Unknown Urine Total Protein 38 mg/dL (5-11.8) H 02/22/21 Unknown Medications & Allergies - Medications Allergies/Adverse Reactions: Allergies No Known Allergies Allergy (Verified 02/22/21 15:01) Home Medications: Home Medications Medication Instructions Recorded Confirmed Last Taken Type AtorvaSTATin 40 mg PO QHS 02/15/20 02/22/21 Unknown History Metoprolol Succinate 50 mg PO DAILY 02/15/20 02/22/21 1 Day Ago History ~02/21/21 Active Medications: Generic Name Dose Route Start Last Admin Trade Name Freq PRN Reason Stop Dose Admin Sodium Chloride 1,000 mls @ 150 mls/hr 02/22/21 11:30 02/24/21 06:27 Nacl 0.9% 1000 Ml IV 150 mls/hr DIRECT BULL Administration Potassium Chloride 10 meq in 100 mls @ 100 mls/hr 02/24/21 11:00 02/24/21 10:51 Kcl 10meq/100ml IV 02/24/21 14:59 100 mls/hr Q1H BULL Administration Morphine Sulfate 2 mg 02/22/21 11:30 02/23/21 22:06 Morphine 2 Mg/1 Ml Inj IV 2 mg Q3H PRN Administration Pain, Moderate (4-6) Ondansetron HCl 4 mg 02/22/21 11:29 02/23/21 02:43 Ondansetron 4 Mg/2 Ml Inj IV 4 mg Q6H PRN Administration N/V unrelieved by Baldomero
[2021-02-24] MEDS ORDERED: SODIUM CHLORIDE 0.9% IRR 1,500 ML BOTTLE IR ONE (12:24)
[2021-02-24] MEDS ORDERED: PHENYLEPHRINE/NS 1,000 MCG/10 ML SYRINGE (OR USE) IV ONE ×2 (12:27→12:29)
[2021-02-24] MEDS ORDERED: LACTATED RINGERS 1,000 ML ONE (12:27)
[2021-02-24] MEDS ORDERED: NEOSTIGMINE 10MG/10 ML INJ MDV ONE (13:10)
[2021-02-24] MEDS ORDERED: GLYCOPYRROLATE 0.4 MG/2 ML INJ ONE ×2 (13:10→13:16)
[2021-02-24] MEDS ORDERED: ONDANSETRON 4 MG/2 ML INJ ONE (13:16)
--- NOTE | 2021-02-24 13:50 | Procedure Note ---
Date of procedure: 02/24/21 Pre-op diagnosis: SBO Post-op diagnosis: same Procedure: Enterolysis Description of procedure: Pt was placed supine on the OR table. GETA was administered. Abdomen was prepped and draped. Peritoneal cavity was entered via a vertical midline incision. The band causing the obstruction was quickly identified and was lysed. Bowel proximal to the band was dilated and bowel distal to the band was decompressed. Bowel was returned to the peritoneal cavi ty. Midline fascia was approximated with a running, looped #1 PDS. Skin was approximated with teresa. Xeroform was applied to the incision followed by dry 4 X 4's secured with tape. Pt was extubated in the OR. Pt tolerated the procedure well. Pt was taken to PACU in stable condition. Anesthesia: GETA Surgeon: MADHURI VALDEZ Estimated blood loss: minimal Pathology: none Condition: stable Disposition: PACU
[2021-02-24] MEDS: HYDROmorphone 1 MG/1 ML INJ IV PRN ×4 (14:00→14:30)
[2021-02-24] MEDS ORDERED: ONDANSETRON 4 MG/2 ML INJ IV PRN (14:03)
--- NOTE | 2021-02-24 16:07 | Post Anesthesia Evaluation ---
- Post Anesthesia Evaluation Patient Participated: Yes Airway Patent: Yes Stable Respiratory Function: Yes Nausea/Vomiting: No Temp > 96.8F: Yes Pain Manageable: Yes Adequeate Hydration: Yes Anesthesia Complications: No
[2021-02-24] MEDS: MORPHINE 2 MG/1 ML INJ IV PRN (17:06)
[2021-02-25] MEDS: SODIUM CHLORIDE 0.9% 1000 ML 1,000 ML IV SCH ×2 (02:13→09:35)
[2021-02-25 08:21] LABS: Hematocrit 43.1 % (35.5-45.6); Hemoglobin 15.1 gm/dl (11.8-15.2); Mean Corpuscular HGB Conc 35 % (32-34); Mean Corpuscular Volume 97 fl (84-94); Platelet Count 211 K/mm3 (140-440); Red Blood Count 4.46 M/mm3 (3.65-5.03); Red Cell Distribution Width 12.8 % (13.2-15.2)
--- NOTE | 2021-02-25 08:22 | Progress Note ---
Assessment and Plan - Patient Problems (1) SBO (small bowel obstruction) Current Visit: Yes Status: Acute Plan to address problem: 1) Continue NG 2) CBC, BMP and AXR in the am Subjective Date of service: 02/25/21 Patient Reports: Positive: no new complaints, no flatus, no bowel movement Objective Vital Signs - 12hr 02/24/21 02/25/21 22:41 05:22 Temperature 98.9 F 98.4 F Pulse Rate 90 94 H Respiratory 20 18 Rate Blood Pressure 119/92 107/78 O2 Sat by Pulse 98 98 Oximetry - Abdomen soft, bowel sounds hypoactive (Appropriately TTP) - Labs 02/24/21 05:07 02/24/21 05:07
[2021-02-25 08:41] LABS: BUN/Creatinine Ratio 45; Blood Urea Nitrogen 63 mg/dL (9-20); Calcium 8.3 mg/dL (8.4-10.2); Hemolysis Index 3
[2021-02-25] MEDS: MORPHINE 2 MG/1 ML INJ IV PRN ×2 (09:34→17:11)
--- NOTE | 2021-02-25 11:21 | Progress Note ---
Assessment and Plan Assessment and plan: 65-year-old -Chinese male with past medical history significant for aortic aneurysm repair, hypertension, penile implant presented to the emergency department with complaints of abdominal pain that started 4 days ago. Patient states the pain was sharp, 10 out of 10 intensity, with no radiation, no aggravating or alleviating factors identified, patient has associated persistent nausea and vomiting. She was not eating and drinking for the last 4 days. Patient did not have any bowel movement, could not pass gas. Patient is to call his vascular surgeon and told him to go to the emergency department, his vascular surgeon stated it is not a vascular problem. In the emergency department patient was hypotensive and was given bolus of IV fluids and blood pressure was corrected. CT abdomen and pelvis showed small bowel obstruction with transition point. General surgery was consulted. Patient has elevated BUN and creatinine and nephrology was consulted. Patient admitted to the floor for further evaluation and management. High-grade small bowel obstruction -N.p.o., IV fluids, pain control -during my examination patient was given pain medication and general pain resolved -General surgery consulted -We will continue to monitor Hypotension -Likely due to poor oral intake, persistent nausea and vomiting -Patient was given bolus of IV fluids and corrected -We will continue with normal saline -Held blood pressure medications Acute renal failure -Likely due to dehydration, patient is on IV fluids -Nephrology consulted History of aortic aneurysm repair -CT did not show acute abnormalities -H&H is stable DVT prophylaxis -SCDs because patient may need surgery CODE STATUS -Full Disposition; admit to medical floor. Management plan was discussed with the patient and was in agreement with the plan of care. 02/23/2021 -Blood pressure was low this morning and was given a bolus of normal saline. Continue with normal saline at 150 mL/h -Slight improvement in creatinine level, patient is hypokalemic and was given potassium -Nephrology consult appreciated -Patient was seen by general surgery and recommend NG tube decompression 02/24/2021 -FAN is improving, continue with IV fluids. Nephrology consult appreciated. -Abdominal x-ray this morning showed worsening of small bowel obstruction, patient was evaluated by general surgery and considering to do laparotomy and lysis of adhesion, will follow with the surgeon -Chest x-ray showed 1.7 cm mass on the right perihilar area, I ordered a CT chest without contrast -Urine culture is negative and I stop IV antibiotic 02/25: s/p EX LAP, Continue supportive care, Awaiting surgical re-evaluation, Renal function showing some improvement. Continue to monitor. History Interval history: Patient was seen and evaluated this morning, No bowel movement, on NG tube decompression Patient admitted for high-grade small bowel obstruction and FAN Hospitalist Physical - Physical exam Narrative exam: Not in cardiopulmonary distress. The patient appeared well nourished and normally developed. Vital signs as documented. Head exam is unremarkable. No scleral icterus . Neck is without jugular venous distension, thyromegaly, or carotid bruits. Lungs are clear to auscultation. Cardiac exam reveals regular rate and Rhythm. Abdominal exam reveals normal bowel sounds, nontender, no organomegaly. Extremities are nonedematous and both femoral and pedal pulses are normal. 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 No focal weakness. - Constitutional Vitals: Temp Pulse Resp BP Pulse Ox 98.4 F 94 H 18 107/78 98 02/25/21 05:22 02/25/21 05:22 02/25/21 05:22 02/25/21 05:22 02/25/21 05:22 Results - Labs CBC & Chem 7: 02/25/21 07:51 02/25/21 07:51 Labs: Laboratory Last Values WBC 11.0 K/mm3 (4.5-11.0) 02/25/21 07:51 RBC 4.46 M/mm3 (3.65-5.03) 02/25/21 07:51 Hgb 15.1 gm/dl (11.8-15.2) 02/25/21 07:51 Hct 43.1 % (35.5-45.6) 02/25/21 07:51 MCV 97 fl (84-94) H 02/25/21 07:51 MCH 34 pg (28-32) H 02/25/21 07:51 MCHC 35 % (32-34) H 02/25/21 07:51 RDW 12.8 % (13.2-15.2) L 02/25/21 07:51 Plt Count 211 K/mm3 (140-440) 02/25/21 07:51 Lymph % (Auto) 6.1 % (13.4-35.0) L 02/23/21 05:24 [place] % (Auto) 9.4 % (0.0-7.3) H 02/23/21 05:24 Eos % (Auto) 0.1 % (0.0-4.3) 02/23/21 05:24 Baso % (Auto) 0.2 % (0.0-1.8) 02/23/21 05:24 Lymph # (Auto) 0.6 K/mm3 (1.2-5.4) L 02/23/21 05:24 [place] # (Auto) 0.9 K/mm3 (0.0-0.8) H 02/23/21 05:24 Eos # (Auto) 0.0 K/mm3 (0.0-0.4) 02/23/21 05:24 Baso # (Auto) 0.0 K/mm3 (0.0-0.1) 02/23/21 05:24 Add Manual Diff Complete 02/22/21 08:21 Total Counted 100 02/22/21 08:21 Seg Neutrophils % 84.2 % (40.0-70.0) H 02/23/21 05:24 Seg Neuts % (Manual) 81.0 % (40.0-70.0) H 02/22/21 08:21 Lymphocytes % (Manual) 6.0 % (13.4-35.0) L 02/22/21 08:21 Monocytes % (Manual) 12.0 % (0.0-7.3) H 02/22/21 08:21 Eosinophils % (Manual) 1.0 % (0.0-4.3) 02/22/21 08:21 Nucleated RBC % Not Reportable 02/22/21 08:21 Seg Neutrophils # 8.4 K/mm3 (1.8-7.7) H 02/23/21 05:24 Seg Neutrophils # Man 7.0 K/mm3 (1.8-7.7) 02/22/21 08:21 Band Neutrophils # 0.0 K/mm3 02/22/21 08:21 Lymphocytes # (Manual) 0.5 K/mm3 (1.2-5.4) L 02/22/21 08:21 Abs React Lymphs (Man) 0.0 K/mm3 02/22/21 08:21 Monocytes # (Manual) 1.0 K/mm3 (0.0-0.8) H 02/22/21 08:21 Eosinophils # (Manual) 0.1 K/mm3 (0.0-0.4) 02/22/21 08:21 Basophils # (Manual) 0.0 K/mm3 (0.0-0.1) 02/22/21 08:21 Metamyelocytes # 0.0 K/mm3 02/22/21 08:21 Myelocytes # 0.0 K/mm3 02/22/21 08:21 Promyelocytes # 0.0 K/mm3 02/22/21 08:21 Blast Cells # 0.0 K/mm3 02/22/21 08:21 WBC Morphology Not Reportable 02/22/21 08:21 WBC Morphology TNR 02/22/21 08:21 Hypersegmented Neuts Not Reportable 02/22/21 08:21 Hyposegmented Neuts Not Reportable 02/22/21 08:21 Hypogranular Neuts Not Reportable 02/22/21 08:21 Smudge Cells Not Reportable 02/22/21 08:21 Toxic Granulation Not Reportable 02/22/21 08:21 Toxic Vacuolation Not Reportable 02/22/21 08:21 Dohle Bodies Not Reportable 02/22/21 08:21 Pelger-Huet Anomaly Not Reportable 02/22/21 08:21 An Rods Not Reportable 02/22/21 08:21 Platelet Estimate Consistent w auto 02/22/21 08:21 Clumped Platelets Not Reportable 02/22/21 08:21 Plt Clumps, EDTA Not Reportable 02/22/21 08:21 Large Platelets Not Reportable 02/22/21 08:21 Giant Platelets Not Reportable 02/22/21 08:21 Platelet Satelliting Not Reportable 02/22/21 08:21 Plt Morphology Comment Not Reportable 02/22/21 08:21 RBC Morphology Not Reportable 02/22/21 08:21 Dimorphic RBCs Not Reportable 02/22/21 08:21 Polychromasia Not Reportable 02/22/21 08:21 Hypochromasia Not Reportable 02/22/21 08:21 Poikilocytosis Not Reportable 02/22/21 08:21 Anisocytosis Not Reportable 02/22/21 08:21 Microcytosis Not Reportable 02/22/21 08:21 Macrocytosis Not Reportable 02/22/21 08:21 Spherocytes Not Reportable 02/22/21 08:21 Pappenheimer Bodies Not Reportable 02/22/21 08:21 Sickle Cells Not Reportable 02/22/21 08:21 Target Cells Not Reportable 02/22/21 08:21 Tear Drop Cells Not Reportable 02/22/21 08:21 Ovalocytes Not Reportable 02/22/21 08:21 Helmet Cells Not Reportable 02/22/21 08:21 [place] Bodies Not Reportable 02/22/21 08:21 [place] Rings Not Reportable 02/22/21 08:21 Minnie Cells Few 02/22/21 08:21 Bite Cells Not Reportable 02/22/21 08:21 Crenated Cell Not Reportable 02/22/21 08:21 Elliptocytes Few 02/22/21 08:21 Acanthocytes (Spur) Not Reportable 02/22/21 08:21 Rouleaux Not Reportable 02/22/21 08:21 Hemoglobin C Crystals Not Reportable 02/22/21 08:21 Schistocytes Rare 02/22/21 08:21 Malaria parasites Not Reportable 02/22/21 08:21 Jermain Bodies Not Reportable 02/22/21 08:21 Hem Pathologist Commnt No 02/22/21 08:21 Sodium 142 mmol/L (137-145) 02/25/21 07:51 Potassium 3.8 mmol/L (3.6-5.0) 02/25/21 07:51 Chloride 106.1 mmol/L (98-107) 02/25/21 07:51 Carbon Dioxide 27 mmol/L (22-30) 02/25/21 07:51 Anion Gap 13 mmol/L 02/25/21 07:51 BUN 63 mg/dL (9-20) H 02/25/21 07:51 Creatinine 1.4 mg/dL (0.8-1.3) H 02/25/21 07:51 Estimated GFR > 60 ml/min 02/25/21 07:51 BUN/Creatinine Ratio 45 % 02/25/21 07:51 Glucose 95 mg/dL (75-100) 02/25/21 07:51 Calcium 8.3 mg/dL (8.4-10.2) L 02/25/21 07:51 Phosphorus 5.40 mg/dL (2.5-4.5) H 02/23/21 05:24 Magnesium 2.90 mg/dL (1.7-2.3) H 02/23/21 05:24 Total Bilirubin 0.80 mg/dL (0.1-1.2) 02/22/21 08:21 Direct Bilirubin 0.2 mg/dL (0-0.2) 02/22/21 08:21 Indirect Bilirubin 0.6 mg/dL 02/22/21 08:21 AST 16 units/L (5-40) 02/22/21 08:21 ALT 9 units/L (7-56) 02/22/21 08:21 Alkaline Phosphatase 72 units/L (35-129) 02/22/21 08:21 Total Protein 8.0 g/dL (6.3-8.2) 02/22/21 08:21 Albumin 4.3 g/dL (3.9-5) 02/22/21 08:21 Albumin/Globulin Ratio 1.2 % 02/22/21 08:21 Lipase 18 units/L (13-60) 02/22/21 08:21 Urine Color Bianca (Yellow) 02/22/21 09:23 Urine Turbidity Cloudy (Clear) 02/22/21 09:23 Urine pH 5.0 (5.0-7.0) 02/22/21 09:23 Ur Specific [place] 1.017 (1.003-1.030) 02/22/21 09:23 Urine Protein 100 mg/dl mg/dL (Negative) 02/22/21 09:23 Urine Glucose (UA) Neg mg/dL (Negative) 02/22/21 09:23 Urine Ketones Neg mg/dL (Negative) 02/22/21 09:23 Urine Blood Mod (Negative) 02/22/21 09:23 Urine Nitrite Neg (Negative) 02/22/21 09:23 Urine Bilirubin Neg (Negative) 02/22/21 09:23 Urine Urobilinogen 2.0 mg/dL (<2.0) 02/22/21 09:23 Ur Leukocyte Esterase Neg (Negative) 02/22/21 09:23 Urine WBC (Auto) 9.0 /HPF (0.0-6.0) H 02/22/21 09:23 Urine RBC (Auto) 10.0 /HPF (0.0-6.0) 02/22/21 09:23 U Epithel Cells (Auto) 2.0 /HPF (0-13.0) 02/22/21 09:23 Hyaline Casts 23 /LPF 02/22/21 09:23 Urine Mucus 2+ /HPF 02/22/21 09:23 Urine Eosinophils None seen (None Seen) 02/22/21 Unknown Urine Creatinine 198.5 mg/dL (0.1-20.0) H 02/22/21 Unknown Urine Microalbumin 2.6 mg/dL (0.1-34.0) 02/22/21 Unknown Microalb/Creat Ratio 13.0 ug/mg 02/22/21 Unknown Protein/Creatinin Ratio 0.19 02/22/21 Unknown Urine Sodium 11 mmol/L 02/22/21 Unknown Urine Total Protein 38 mg/dL (5-11.8) H 02/22/21 Unknown Blood Type A POSITIVE 02/24/21 12:15 Antibody Screen Negative 02/24/21 12:15 Microbiology: Microbiology 02/22/21 09:23 Urine,Clean Catch Urine Culture - Final Lucero/IV: Voiding Method Indwelling Catheter Active Medications - Current Medications Current Medications: Generic Name Dose Route Start Last Admin Trade Name Freq PRN Reason Stop Dose Admin Hydrophilic Ointment 1 applic 02/25/21 09:43 Lip Therapy Vaseline TP DIRECT PRN Dry Lips Sodium Chloride 1,000 mls @ 150 mls/hr 02/22/21 11:30 02/25/21 09:35 Nacl 0.9% 1000 Ml IV 150 mls/hr DIRECT BULL Administration Morphine Sulfate 2 mg 02/22/21 11:30 02/25/21 09:34 Morphine 2 Mg/1 Ml Inj IV 2 mg Q3H PRN Administration Pain, Moderate (4-6) Ondansetron HCl 4 mg 02/22/21 11:29 02/23/21 02:43 Ondansetron 4 Mg/2 Ml Inj IV 4 mg Q6H PRN Administration N/V unrelieved by Baldomero Ondansetron HCl 4 mg 02/24/21 14:03 Ondansetron 4 Mg/2 Ml Inj IV ONCE PRN Nausea And Vomiting Nutrition/Malnutrition Assess - Dietary Evaluation Nutrition/Malnutrition Findings: Nutrition Notes Start: 02/24/21 11:22 Freq: Status: Active Protocol: Document 02/24/21 11:22 RANJAN (Rec: 02/24/21 11:27 [facility] [id number]) Nutrition Notes 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 Pt admitted with SBO; NGT to suction at this time. 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 No Is Patient Ambulatory and/or Out of Bed Yes REE-([place]-St. Jeor-ambulatory/OOB) [ 1998.269 [id number]] Calculation Used for Recommendations [place]-St Jeor Additional Notes Pro needs 0.8-1.2g/k-89g/ day Fluid needs 1ml/kcal Nutrition Intervention Change Diet Order: Diet advancement when medically feasible Goal #1 Advance diet to meet nutrient needs Anticipated Discharge Needs: Unable to identify at this time Follow-Up By: 02/27/21 Additional Comments F/U: diet advancement, POC
--- NOTE | 2021-02-25 12:06 | Progress Note ---
Assessment and Plan High Grade Small Bowel Obstruction FAN possibly 2/2 prerenal etiology in setting of vomiting and poor oral intake, hypotension, no obstruction Hypotension Hypokalemia Hx of AAA repair Plan: - Cr is trending down, good UOP - cont NS - No hydronephrosis noted on CT AP w/o contrast study on 02/22/21 - On Abx. Currently NPO - Renally dose medications - Avoid nephrotoxic agents - Lucero Catheter: No Subjective Date of service: 02/25/21 Principal diagnosis: ARF Interval history: no active complaints, no bowel movement Objective - Vital Signs Vital signs: Vital Signs - 12hr 02/25/21 05:22 Temperature 98.4 F Pulse Rate 94 H Respiratory 18 Rate Blood Pressure 107/78 O2 Sat by Pulse 98 Oximetry - Lab 02/25/21 07:51 02/25/21 07:51 Most recent lab results Calcium 8.3 mg/dL (8.4-10.2) L 02/25/21 07:51 Phosphorus 5.40 mg/dL (2.5-4.5) H 02/23/21 05:24 Magnesium 2.90 mg/dL (1.7-2.3) H 02/23/21 05:24 Urine Creatinine 198.5 mg/dL (0.1-20.0) H 02/22/21 Unknown Urine Sodium 11 mmol/L 02/22/21 Unknown Urine Total Protein 38 mg/dL (5-11.8) H 02/22/21 Unknown Medications & Allergies - Medications Allergies/Adverse Reactions: Allergies No Known Allergies Allergy (Verified 02/22/21 15:01) Home Medications: Home Medications Medication Instructions Recorded Confirmed Last Taken Type AtorvaSTATin 40 mg PO QHS 02/15/20 02/22/21 Unknown History Metoprolol Succinate 50 mg PO DAILY 02/15/20 02/22/21 1 Day Ago History ~02/21/21 Active Medications: Generic Name Dose Route Start Last Admin Trade Name Freq PRN Reason Stop Dose Admin Hydrophilic Ointment 1 applic 02/25/21 09:43 Lip Therapy Vaseline TP DIRECT PRN Dry Lips Sodium Chloride 1,000 mls @ 150 mls/hr 02/22/21 11:30 02/25/21 09:35 Nacl 0.9% 1000 Ml IV 150 mls/hr DIRECT BULL Administration Morphine Sulfate 2 mg 02/22/21 11:30 02/25/21 09:34 Morphine 2 Mg/1 Ml Inj IV 2 mg Q3H PRN Administration Pain, Moderate (4-6) Ondansetron HCl 4 mg 02/22/21 11:29 02/23/21 02:43 Ondansetron 4 Mg/2 Ml Inj IV 4 mg Q6H PRN Administration N/V unrelieved by Baldomero Ondansetron HCl 4 mg 02/24/21 14:03 Ondansetron 4 Mg/2 Ml Inj IV ONCE PRN Nausea And Vomiting
[2021-02-25] MEDS: LIP THERAPY VASELINE TP PRN (15:03)
--- NOTE | 2021-02-25 15:08 | Post Anesthesia Evaluation ---
- Post Anesthesia Evaluation Patient Participated: Yes Airway Patent: Yes Stable Respiratory Function: Yes Nausea/Vomiting: No Temp > 96.8F: Yes Pain Manageable: Yes Adequeate Hydration: Yes Anesthesia Complications: No Block Receding Appropriately: Not Applicable Patient on Ventilator: No Other Comments: Patient denies any anesthesia complications.
[2021-02-25] MEDS ORDERED: SODIUM CHLORIDE 0.9% 500 ML 500 ML IV ONE (22:07)
[2021-02-26] MEDS: SODIUM CHLORIDE 0.9% 1000 ML 1,000 ML IV SCH ×3 (03:21→21:54)
[2021-02-26 06:13] LABS: Basophils % (Auto) 0.3 % (0.0-1.8); Eosinophils # (Auto) 0.2 K/mm3 (0.0-0.4); Eosinophils % (Auto) 1.9 % (0.0-4.3); Hematocrit 46.6 % (35.5-45.6); Hemoglobin 15.5 gm/dl (11.8-15.2); Lymphocytes # (Auto) 1.2 K/mm3 (1.2-5.4); Lymphocytes % (Auto) 12.1 % (13.4-35.0); Mean Corpuscular HGB Conc 33 % (32-34); Mean Corpuscular Volume 99 fl (84-94); Monocytes # (Auto) 1.5 K/mm3 (0.0-0.8); Monocytes % (Auto) 14.8 % (0.0-7.3); Platelet Count 227 K/mm3 (140-440); Red Blood Count 4.73 M/mm3 (3.65-5.03); Red Cell Distribution Width 12.9 % (13.2-15.2)
[2021-02-26 06:44] LABS: BUN/Creatinine Ratio 38; Blood Urea Nitrogen 42 mg/dL (9-20); Calcium 8.1 mg/dL (8.4-10.2); Hemolysis Index 2
--- NOTE | 2021-02-26 09:54 | XRay Report ---
ABDOMEN 3 VIEW(S) INDICATION / CLINICAL INFORMATION: sbo. COMPARISON: 02/24/2021 FINDINGS: TUBES / LINES: Nasogastric tube tip and side-port remains in the stomach. BOWEL GAS PATTERN: There is improved dilation of the small bowel. Small bowel remains dilated in the central abdomen. Interval midline incisional changes. FREE AIR / EXTRALUMINAL GAS: Expected postoperative gas without large volume pneumoperitoneum. ADDITIONAL FINDINGS: No significant additional findings. CHEST: Visualized chest shows no significant abnormality. IMPRESSION: 1. Improved small bowel dilatation with persistent dilated small bowel central abdomen, may reflect residual postsurgical ileus. 2. Nasogastric tube projects in the stomach. Signer Name: Sammy Palomo MD Signed: 02/26/2021 9:49 AM Workstation Name: [email or web address]
--- NOTE | 2021-02-26 10:18 | Progress Note ---
Assessment and Plan - Patient Problems (1) SBO (small bowel obstruction) Current Visit: Yes Status: Acute Plan to address problem: 1) Continue NG 2) CBC, BMP and AXR tomorrow 3) Ambulate in the halls Subjective Date of service: 02/26/21 Patient Reports: Positive: no new complaints, feels better, pain is less, flatus, no bowel movement Objective Vital Signs - 12hr 02/25/21 02/25/21 02/26/21 23:22 23:24 00:01 Temperature Pulse Rate 127 H 122 H 131 H Respiratory 18 Rate Blood Pressure 93/66 O2 Sat by Pulse 96 95 94 Oximetry 02/26/21 02/26/21 04:45 04:51 Temperature 98.3 F Pulse Rate 131 H Respiratory 18 Rate Blood Pressure 91/70 O2 Sat by Pulse 94 Oximetry - Abdomen soft, bowel sounds hypoactive (Appropriately TTP without rebound or guarding. ND) - Labs 02/26/21 05:26 02/26/21 05:26 Diabetes panel 02/26/21 Range/Units 05:26 Sodium 148 H (137-145) mmol/L Potassium 3.7 (3.6-5.0) mmol/L Chloride 112.7 H (98-107) mmol/L Carbon Dioxide 26 (22-30) mmol/L BUN 42 H (9-20) mg/dL Creatinine 1.1 (0.8-1.3) mg/dL Glucose 83 (75-100) mg/dL Calcium 8.1 L (8.4-10.2) mg/dL Calcium panel 02/26/21 Range/Units 05:26 Calcium 8.1 L (8.4-10.2) mg/dL Pituitary panel 02/26/21 Range/Units 05:26 Sodium 148 H (137-145) mmol/L Potassium 3.7 (3.6-5.0) mmol/L Chloride 112.7 H (98-107) mmol/L Carbon Dioxide 26 (22-30) mmol/L BUN 42 H (9-20) mg/dL Creatinine 1.1 (0.8-1.3) mg/dL Glucose 83 (75-100) mg/dL Calcium 8.1 L (8.4-10.2) mg/dL Adrenal panel 02/26/21 Range/Units 05:26 Sodium 148 H (137-145) mmol/L Potassium 3.7 (3.6-5.0) mmol/L Chloride 112.7 H (98-107) mmol/L Carbon Dioxide 26 (22-30) mmol/L BUN 42 H (9-20) mg/dL Creatinine 1.1 (0.8-1.3) mg/dL Glucose 83 (75-100) mg/dL Calcium 8.1 L (8.4-10.2) mg/dL - Imaging Abdominal x-ray: report reviewed
[2021-02-26] MEDS ORDERED: SODIUM CHLORIDE 0.9% 1000 ML 1,000 ML IV ONE (11:00)
--- NOTE | 2021-02-26 13:45 | Progress Note ---
Assessment and Plan Assessment and plan: 65-year-old -Mal[place]ian male with past medical history significant for aortic aneurysm repair, hypertension, penile implant presented to the emergency department with complaints of abdominal pain that started 4 days ago. Patient states the pain was sharp, 10 out of 10 intensity, with no radiation, no aggravating or alleviating factors identified, patient has associated persistent nausea and vomiting. She was not eating and drinking for the last 4 days. Patient did not have any bowel movement, could not pass gas. Patient is to call his vascular surgeon and told him to go to the emergency department, his vascular surgeon stated it is not a vascular problem. In the emergency department patient was hypotensive and was given bolus of IV fluids and blood pressure was corrected. CT abdomen and pelvis showed small bowel obstruction with transition point. General surgery was consulted. Patient has elevated BUN and creatinine and nephrology was consulted. Patient admitted to the floor for further evaluation and management. High-grade small bowel obstruction -N.p.o., IV fluids, pain control -during my examination patient was given pain medication and general pain resolved -General surgery consulted -We will continue to monitor Hypotension -Likely due to poor oral intake, persistent nausea and vomiting -Patient was given bolus of IV fluids and corrected -We will continue with normal saline -Held blood pressure medications Acute renal failure -Likely due to dehydration, patient is on IV fluids -Nephrology consulted History of aortic aneurysm repair -CT did not show acute abnormalities -H&H is stable DVT prophylaxis -SCDs because patient may need surgery CODE STATUS -Full Disposition; admit to medical floor. Management plan was discussed with the patient and was in agreement with the plan of care. 02/23/2021 -Blood pressure was low this morning and was given a bolus of normal saline. Continue with normal saline at 150 mL/h -Slight improvement in creatinine level, patient is hypokalemic and was given potassium -Nephrology consult appreciated -Patient was seen by general surgery and recommend NG tube decompression 02/24/2021 -FAN is improving, continue with IV fluids. Nephrology consult appreciated. -Abdominal x-ray this morning showed worsening of small bowel obstruction, patient was evaluated by general surgery and considering to do laparotomy and lysis of adhesion, will follow with the surgeon -Chest x-ray showed 1.7 cm mass on the right perihilar area, I ordered a CT chest without contrast -Urine culture is negative and I stop IV antibiotic 02/25: s/p EX LAP, Continue supportive care, Awaiting surgical re-evaluation, Renal function showing some improvement. Continue to monitor. 02/26: Noted tachycardia and hypotensive. Discussed with nursing staff, will give a bolus of fluids and obtain EKG. Patient is on metoprolol outpatient, will c ontinue to hold. Renal function improving. History Interval history: Patient was seen and evaluated this morning, No bowel movement, on NG tube decompression but was not to suction Patient admitted for high-grade small bowel obstruction and FAN Hospitalist Physical - Physical exam Narrative exam: Not in cardiopulmonary distress. The patient appeared well nourished and normally developed. NGT inplace Vital signs as documented. Head exam is unremarkable. No scleral icterus . Neck is without jugular venous distension, thyromegaly, or carotid bruits. Lungs are clear to auscultation. Cardiac exam reveals regular rate and Rhythm. Abdominal exam reveals normal bowel sounds, nontender, no organomegaly. Extremities are nonedematous and both femoral and pedal pulses are normal. 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 No focal weakness. - Constitutional Vitals: Temp Pulse Resp BP Pulse Ox 98.3 F 131 H 18 91/70 94 02/26/21 04:45 02/26/21 04:45 02/26/21 04:45 02/26/21 04:51 02/26/21 04:45 HEART Score - HEART Score Troponin: Troponin T 0.012 ng/mL (0.00-0.029) 02/26/21 03:00 Results - Labs CBC & Chem 7: 02/26/21 05:26 02/26/21 05:26 Labs: Laboratory Last Values WBC 10.0 K/mm3 (4.5-11.0) 02/26/21 05:26 RBC 4.73 M/mm3 (3.65-5.03) 02/26/21 05:26 Hgb 15.5 gm/dl (11.8-15.2) H 02/26/21 05:26 Hct 46.6 % (35.5-45.6) H 02/26/21 05:26 MCV 99 fl (84-94) H 02/26/21 05:26 MCH 33 pg (28-32) H 02/26/21 05:26 MCHC 33 % (32-34) 02/26/21 05:26 RDW 12.9 % (13.2-15.2) L 02/26/21 05:26 Plt Count 227 K/mm3 (140-440) 02/26/21 05:26 Lymph % (Auto) 12.1 % (13.4-35.0) L 02/26/21 05:26 Kerr % (Auto) 14.8 % (0.0-7.3) H 02/26/21 05:26 Eos % (Auto) 1.9 % (0.0-4.3) 02/26/21 05:26 Baso % (Auto) 0.3 % (0.0-1.8) 02/26/21 05:26 Lymph # (Auto) 1.2 K/mm3 (1.2-5.4) 02/26/21 05:26 Kerr # (Auto) 1.5 K/mm3 (0.0-0.8) H 02/26/21 05:26 Eos # (Auto) 0.2 K/mm3 (0.0-0.4) 02/26/21 05:26 Baso # (Auto) 0.0 K/mm3 (0.0-0.1) 02/26/21 05:26 Add Manual Diff Complete 02/22/21 08:21 Total Counted 100 02/22/21 08:21 Seg Neutrophils % 70.9 % (40.0-70.0) H 02/26/21 05:26 Seg Neuts % (Manual) 81.0 % (40.0-70.0) H 02/22/21 08:21 Lymphocytes % (Manual) 6.0 % (13.4-35.0) L 02/22/21 08:21 Monocytes % (Manual) 12.0 % (0.0-7.3) H 02/22/21 08:21 Eosinophils % (Manual) 1.0 % (0.0-4.3) 02/22/21 08:21 Nucleated RBC % Not Reportable 02/22/21 08:21 Seg Neutrophils # 7.1 K/mm3 (1.8-7.7) 02/26/21 05:26 Seg Neutrophils # Man 7.0 K/mm3 (1.8-7.7) 02/22/21 08:21 Band Neutrophils # 0.0 K/mm3 02/22/21 08:21 Lymphocytes # (Manual) 0.5 K/mm3 (1.2-5.4) L 02/22/21 08:21 Abs React Lymphs (Man) 0.0 K/mm3 02/22/21 08:21 Monocytes # (Manual) 1.0 K/mm3 (0.0-0.8) H 02/22/21 08:21 Eosinophils # (Manual) 0.1 K/mm3 (0.0-0.4) 02/22/21 08:21 Basophils # (Manual) 0.0 K/mm3 (0.0-0.1) 02/22/21 08:21 Metamyelocytes # 0.0 K/mm3 02/22/21 08:21 Myelocytes # 0.0 K/mm3 02/22/21 08:21 Promyelocytes # 0.0 K/mm3 02/22/21 08:21 Blast Cells # 0.0 K/mm3 02/22/21 08:21 WBC Morphology Not Reportable 02/22/21 08:21 WBC Morphology TNR 02/22/21 08:21 Hypersegmented Neuts Not Reportable 02/22/21 08:21 Hyposegmented Neuts Not Reportable 02/22/21 08:21 Hypogranular Neuts Not Reportable 02/22/21 08:21 Smudge Cells Not Reportable 02/22/21 08:21 Toxic Granulation Not Reportable 02/22/21 08:21 Toxic Vacuolation Not Reportable 02/22/21 08:21 Dohle Bodies Not Reportable 02/22/21 08:21 Pelger-Huet Anomaly Not Reportable 02/22/21 08:21 An Rods Not Reportable 02/22/21 08:21 Platelet Estimate Consistent w auto 02/22/21 08:21 Clumped Platelets Not Reportable 02/22/21 08:21 Plt Clumps, EDTA Not Reportable 02/22/21 08:21 Large Platelets Not Reportable 02/22/21 08:21 Giant Platelets Not Reportable 02/22/21 08:21 Platelet Satelliting Not Reportable 02/22/21 08:21 Plt Morphology Comment Not Reportable 02/22/21 08:21 RBC Morphology Not Reportable 02/22/21 08:21 Dimorphic RBCs Not Reportable 02/22/21 08:21 Polychromasia Not Reportable 02/22/21 08:21 Hypochromasia Not Reportable 02/22/21 08:21 Poikilocytosis Not Reportable 02/22/21 08:21 Anisocytosis Not Reportable 02/22/21 08:21 Microcytosis Not Reportable 02/22/21 08:21 Macrocytosis Not Reportable 02/22/21 08:21 Spherocytes Not Reportable 02/22/21 08:21 Pappenheimer Bodies Not Reportable 02/22/21 08:21 Sickle Cells Not Reportable 02/22/21 08:21 Target Cells Not Reportable 02/22/21 08:21 Tear Drop Cells Not Reportable 02/22/21 08:21 Ovalocytes Not Reportable 02/22/21 08:21 Helmet Cells Not Reportable 02/22/21 08:21 [place] Bodies Not Reportable 02/22/21 08:21 [place] Rings Not Reportable 02/22/21 08:21 Moose Cells Few 02/22/21 08:21 Bite Cells Not Reportable 02/22/21 08:21 Crenated Cell Not Reportable 02/22/21 08:21 Elliptocytes Few 02/22/21 08:21 Acanthocytes (Spur) Not Reportable 02/22/21 08:21 Rouleaux Not Reportable 02/22/21 08:21 Hemoglobin C Crystals Not Reportable 02/22/21 08:21 Schistocytes Rare 02/22/21 08:21 Malaria parasites Not Reportable 02/22/21 08:21 Jermain Bodies Not Reportable 02/22/21 08:21 Hem Pathologist Commnt No 02/22/21 08:21 Sodium 148 mmol/L (137-145) H 02/26/21 05:26 Potassium 3.7 mmol/L (3.6-5.0) 02/26/21 05:26 Chloride 112.7 mmol/L (98-107) H 02/26/21 05:26 Carbon Dioxide 26 mmol/L (22-30) 02/26/21 05:26 Anion Gap 13 mmol/L 02/26/21 05:26 BUN 42 mg/dL (9-20) H 02/26/21 05:26 Creatinine 1.1 mg/dL (0.8-1.3) 02/26/21 05:26 Estimated GFR > 60 ml/min 02/26/21 05:26 BUN/Creatinine Ratio 38 % 02/26/21 05:26 Glucose 83 mg/dL (75-100) 02/26/21 05:26 Calcium 8.1 mg/dL (8.4-10.2) L 02/26/21 05:26 Phosphorus 5.40 mg/dL (2.5-4.5) H 02/23/21 05:24 Magnesium 2.90 mg/dL (1.7-2.3) H 02/23/21 05:24 Total Bilirubin 0.80 mg/dL (0.1-1.2) 02/22/21 08:21 Direct Bilirubin 0.2 mg/dL (0-0.2) 02/22/21 08:21 Indirect Bilirubin 0.6 mg/dL 02/22/21 08:21 AST 16 units/L (5-40) 02/22/21 08:21 ALT 9 units/L (7-56) 02/22/21 08:21 Alkaline Phosphatase 72 units/L (35-129) 02/22/21 08:21 Troponin T 0.012 ng/mL (0.00-0.029) 02/26/21 03:00 Total Protein 8.0 g/dL (6.3-8.2) 02/22/21 08:21 Albumin 4.3 g/dL (3.9-5) 02/22/21 08:21 Albumin/Globulin Ratio 1.2 % 02/22/21 08:21 Lipase 18 units/L (13-60) 02/22/21 08:21 Urine Color Bianca (Yellow) 02/22/21 09:23 Urine Turbidity Cloudy (Clear) 02/22/21 09:23 Urine pH 5.0 (5.0-7.0) 02/22/21 09:23 Ur Specific [place] 1.017 (1.003-1.030) 02/22/21 09:23 Urine Protein 100 mg/dl mg/dL (Negative) 02/22/21 09:23 Urine Glucose (UA) Neg mg/dL (Negative) 02/22/21 09:23 Urine Ketones Neg mg/dL (Negative) 02/22/21 09:23 Urine Blood Mod (Negative) 02/22/21 09:23 Urine Nitrite Neg (Negative) 02/22/21 09:23 Urine Bilirubin Neg (Negative) 02/22/21 09:23 Urine Urobilinogen 2.0 mg/dL (<2.0) 02/22/21 09:23 Ur Leukocyte Esterase Neg (Negative) 02/22/21 09:23 Urine WBC (Auto) 9.0 /HPF (0.0-6.0) H 02/22/21 09:23 Urine RBC (Auto) 10.0 /HPF (0.0-6.0) 02/22/21 09:23 U Epithel Cells (Auto) 2.0 /HPF (0-13.0) 02/22/21 09:23 Hyaline Casts 23 /LPF 02/22/21 09:23 Urine Mucus 2+ /HPF 02/22/21 09:23 Urine Eosinophils None seen (None Seen) 02/22/21 Unknown Urine Creatinine 198.5 mg/dL (0.1-20.0) H 02/22/21 Unknown Urine Microalbumin 2.6 mg/dL (0.1-34.0) 02/22/21 Unknown Microalb/Creat Ratio 13.0 ug/mg 02/22/21 Unknown Protein/Creatinin Ratio 0.19 02/22/21 Unknown Urine Sodium 11 mmol/L 02/22/21 Unknown Urine Total Protein 38 mg/dL (5-11.8) H 02/22/21 Unknown Blood Type A POSITIVE 02/24/21 12:15 Antibody Screen Negative 02/24/21 12:15 Lucero/IV: Voiding Method Indwelling Catheter Active Medications - Current Medications Current Medications: Generic Name Dose Route Start Last Admin Trade Name Freq PRN Reason Stop Dose Admin Hydrophilic Ointment 1 applic 02/25/21 09:43 02/25/21 15:03 Lip Therapy Vaseline TP 1 applic DIRECT PRN Administration Dry Lips Sodium Chloride 1,000 mls @ 150 mls/hr 02/22/21 11:30 02/26/21 07:06 Nacl 0.9% 1000 Ml IV 150 mls/hr DIRECT BULL Administration Morphine Sulfate 2 mg 02/22/21 11:30 02/25/21 17:11 Morphine 2 Mg/1 Ml Inj IV 2 mg Q3H PRN Administration Pain, Moderate (4-6) Ondansetron HCl 4 mg 02/22/21 11:29 02/23/21 02:43 Ondansetron 4 Mg/2 Ml Inj IV 4 mg Q6H PRN Administration N/V unrelieved by Baldomero Nutrition/Malnutrition Assess - Dietary Evaluation Nutrition/Malnutrition Findings: Nutrition Notes Start: 02/24/21 11:22 Freq: Status: Active Protocol: Document 02/24/21 11:22 [email or web address] (Rec: 02/24/21 11:27 ILALL [id number]) Nutrition Notes 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 Pt admitted with SBO; NGT to suction at this time. 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 No Is Patient Ambulatory and/or Out of Bed Yes REE-([facility]-ambulatory/OOB) [ 1998.269 [id number]] Calculation Used for Recommendations [facility] Additional Notes Pro needs 0.8-1.2g/k-89g/ day Fluid needs 1ml/kcal Nutrition Intervention Change Diet Order: Diet advancement when medically feasible Goal #1 Advance diet to meet nutrient needs Anticipated Discharge Needs: Unable to identify at this time Follow-Up By: 02/27/21 Additional Comments F/U: diet advancement, POC
--- NOTE | 2021-02-26 14:07 | Progress Note ---
Assessment and Plan Assessment: High Grade Small Bowel Obstruction AFN possibly 2/2 prerenal etiology in setting of vomiting and poor oral intake, hypotension, no obstruction Hypotension Hypokalemia Hx of AAA repair Plan: - Renal function reviewed, SCr level was 1.1 today, yesterday's SCr level was 1.4, has good UOP of 1050 ml - Pt had elevated SCr level of 2.3 on 02/15/20, but normalized on 02/18/20 to 0.9 - On 0.9% NS infusion at 150 ml/hr - UA showed elevated rbc, no significant proteinuria, no urine eosinophils - No hydronephrosis noted on CT AP w/o contrast study on 02/22/21 - Renally dose medications - Avoid nephrotoxic agents - Lucero Catheter: No - Renal plan reviewed by Dr. Samson Subjective Date of service: 02/26/21 Principal diagnosis: ARF Interval history: Patient seen lying in bed. Reviewed renal labs. Objective - Vital Signs Vital signs: Vital Signs - 12hr 02/26/21 02/26/21 04:45 04:51 Temperature 98.3 F Pulse Rate 131 H Respiratory 18 Rate Blood Pressure 91/70 O2 Sat by Pulse 94 Oximetry - General Appearance General appearance: fatigue EENT: ATNC, PERRL, hearing intact, vision intact Neck: no JVD, supple Respiratory: Present: Decreased Breath Sounds Cardiology: S1S2 Gastrointestinal: other (Has NG tube in place) Integumentary: warm and dry Neurologic: alert and oriented x3 Musculoskeletal: other (No edema) - Lab 02/26/21 05:26 02/26/21 05:26 Most recent lab results Calcium 8.1 mg/dL (8.4-10.2) L 02/26/21 05:26 Phosphorus 5.40 mg/dL (2.5-4.5) H 02/23/21 05:24 Magnesium 2.90 mg/dL (1.7-2.3) H 02/23/21 05:24 Urine Creatinine 198.5 mg/dL (0.1-20.0) H 02/22/21 Unknown Urine Sodium 11 mmol/L 02/22/21 Unknown Urine Total Protein 38 mg/dL (5-11.8) H 02/22/21 Unknown Medications & Allergies - Medications Allergies/Adverse Reactions: Allergies No Known Allergies Allergy (Verified 02/22/21 15:01) Home Medications: Home Medications Medication Instructions Recorded Confirmed Last Taken Type AtorvaSTATin 40 mg PO QHS 02/15/20 02/22/21 Unknown History Metoprolol Succinate 50 mg PO DAILY 02/15/20 02/22/21 1 Day Ago History ~02/21/21 Active Medications: Generic Name Dose Route Start Last Admin Trade Name Freq PRN Reason Stop Dose Admin Hydrophilic Ointment 1 applic 02/25/21 09:43 02/25/21 15:03 Lip Therapy Vaseline TP 1 applic DIRECT PRN Administration Dry Lips Sodium Chloride 1,000 mls @ 150 mls/hr 02/22/21 11:30 02/26/21 07:06 Nacl 0.9% 1000 Ml IV 150 mls/hr DIRECT BULL Administration Morphine Sulfate 2 mg 02/22/21 11:30 02/25/21 17:11 Morphine 2 Mg/1 Ml Inj IV 2 mg Q3H PRN Administration Pain, Moderate (4-6) Ondansetron HCl 4 mg 02/22/21 11:29 02/23/21 02:43 Ondansetron 4 Mg/2 Ml Inj IV 4 mg Q6H PRN Administration N/V unrelieved by Baldomero
--- NOTE | 2021-02-26 15:30 | Consultation ---
History of Present Illness Consult date: 02/26/21 Requesting physician: KRISTYN SKAGGS Consult reason: atrial fibrillation History of present illness: This patient is a 65-year-old male with a significant history of atrial fibrillation and AAA status post repair, SBO status post surgical repair several days ago, and hypertension. He is previously unknown to our practice and is not currently followed by cardiology. Patient presented to [facility] ER with a chief complaint of abdominal pain. He was subsequently diagnosed with small bowel obstruction and underwent surgical correction performed by Dr. Isai Millard. Cardiology is consulted after patient was observed to be in atrial fib on telemetry. At time of interview patient states he is asymptomatic. He denies weakness, dizziness, chest pain, shortness of breath, N/V/D, recent illness or known exposures. Patient has previously been diagnosed with atrial fibrillation for which he was previously treated with beta-bobby but patient did not follow-up and has been noncompliant with medications for several years. He reports no known cardiac history but does have significant history of AAA s/p repair and history of DVT. Past History Past Medical History: hypertension, other (See HPI) Past Surgical History: Other (Aortic artery aneurysm repair, penile implant) Social history: other. denies: smoking, alcohol abuse, prescription drug abuse Family history: no significant family history Medications and Allergies Allergies Allergy/AdvReac Type Severity Reaction Status Date / Time No Known Allergies Allergy Verified 02/22/21 15:01 Home Medications Medication Instructions Recorded Confirmed Last Taken Type AtorvaSTATin 40 mg PO QHS 02/15/20 02/22/21 Unknown History Metoprolol Succinate 50 mg PO DAILY 02/15/20 02/22/21 1 Day Ago History ~02/21/21 Active Meds: Active Medications Hydrophilic Ointment (Lip Therapy Vaseline) 1 applic TP DIRECT PRN PRN Reason: Dry Lips Last Admin: 02/25/21 15:03 Dose: 1 applic Documented by: Sodium Chloride (Nacl 0.9% 1000 Ml) 1,000 mls @ 150 mls/hr IV DIRECT BULL Last Admin: 02/26/21 07:06 Dose: 150 mls/hr Documented by: Morphine Sulfate (Morphine 2 Mg/1 Ml Inj) 2 mg IV Q3H PRN PRN Reason: Pain, Moderate (4-6) Last Admin: 02/25/21 17:11 Dose: 2 mg Documented by: Ondansetron HCl (Ondansetron 4 Mg/2 Ml Inj) 4 mg IV Q6H PRN PRN Reason: N/V unrelieved by Baldomero Last Admin: 02/23/21 02:43 Dose: 4 mg Documented by: Review of Systems Constitutional: no weight loss, no weight gain, no fever, no chills, no sweats, no night sweats Ears, nose, mouth and throat: no ear pain, no ear discharge, no nose pain, no nasal congestion, no nasal discharge Cardiovascular: palpitations, no chest pain, no orthopnea, no rapid/irregular heart beat, no edema, no syncope, no lightheadedness, no shortness of breath Respiratory: no cough, no hemoptysis, no shortness of breath, no dyspnea on exertion Gastrointestinal: abdominal pain, no nausea, no vomiting, no diarrhea Musculoskeletal: no neck stiffness, no neck pain, no shooting arm pain, no arm numbness/tingling, no low back pain, no shooting leg pain Integumentary: no rash, no pruritis, no redness, no sores, no wounds Neurological: no head injury, no paralysis, no weakness, no parathesias, no numbness, no tingling, no seizures, no syncope Psychiatric: no anxiety Endocrine: no cold intolerance, no heat intolerance Hematologic/Lymphatic: no easy bruising, no easy bleeding Allergic/Immunologic: no urticaria Physical Examination Last Vital Signs Temp 98.3 F 02/26/21 04:45 Pulse 131 H 02/26/21 04:45 Resp 18 02/26/21 04:45 BP 91/70 02/26/21 04:51 Pulse Ox 94 02/26/21 04:45 General appearance: no acute distress HEENT: Positive: PERRL, Normocephaly, Mucus Membranes Moist Neck: Positive: neck supple, trachea midline Cardiac: Positive: irregularly irregular, S1/S2 Lungs: Positive: Normal Exam, Normal Breath Sounds Neuro: Positive: Grossly Intact Abdomen: Positive: Other (S/p abdominal surgery) Skin: Negative: Rash, Wound Musculoskeletal: No Pain Extremities: Present: upper extr. pulses, lower extr. pulses. Absent: edema Results 02/26/21 05:26 02/26/21 05:26 CBC 02/26/21 Range/Units 05:26 WBC 10.0 (4.5-11.0) K/mm3 RBC 4.73 (3.65-5.03) M/mm3 Hgb 15.5 H (11.8-15.2) gm/dl Hct 46.6 H (35.5-45.6) % Plt Count 227 (140-440) K/mm3 Lymph # (Auto) 1.2 (1.2-5.4) K/mm3 Mineral # (Auto) 1.5 H (0.0-0.8) K/mm3 Eos # (Auto) 0.2 (0.0-0.4) K/mm3 Baso # (Auto) 0.0 (0.0-0.1) K/mm3 Comprehensive Metabolic Panel 02/26/21 Range/Units 05:26 Sodium 148 H (137-145) mmol/L Potassium 3.7 (3.6-5.0) mmol/L Chloride 112.7 H (98-107) mmol/L Carbon Dioxide 26 (22-30) mmol/L BUN 42 H (9-20) mg/dL Creatinine 1.1 (0.8-1.3) mg/dL Glucose 83 (75-100) mg/dL Calcium 8.1 L (8.4-10.2) mg/dL - Imaging and Cardiology Echo: pending EKG: report reviewed, image reviewed EKG interpretations - Telemetry EKG Rhythm: Atrial Fibrillation - EKG Sinus rhythms and dysrhythmias: sinus tachycardia Assessment and Plan A. fib with RVR * Patient is currently chest pain-free without cardiac symptoms. Will monitor CE's. Continue to monitor on telemetry * Patient is okay to start anticoagulation but is strictly n.p.o. per surgeon Dr. Isai Millard. Initiate Lovenox therapeutic dose 1 mg/kg SQ twice daily * No rate control at this time due to hypotension. Once hemodynamically stable will initiate rate control medication. * Echocardiogram is pending Small bowel obstruction * S/p surgical correction. Strict n.p.o. DVT prophylaxis * Lovenox SQ We will follow This patient was seen in conjunction with Dr Austin Wynne who agrees with assessment and plan of care - Patient Problems (1) Atrial fibrillation with RVR Current Visit: Yes Status: Chronic (2) SBO (small bowel obstruction) Current Visit: Yes Status: Acute Plan to address problem: S/p abdominal surgery correction (3) S/P AAA (abdominal aortic aneurysm) repair Current Visit: Yes Status: Chronic (4) DVT prophylaxis Current Visit: Yes Status: Acute (5) HTN (hypertension) Current Visit: Yes Status: Chronic Qualifiers: Hypertension type: essential hypertension Qualified Code(s): I10 - Essential (primary) hypertension
[2021-02-26] MEDS ORDERED: ENOXAPARIN 100 MG/1 ML INJ SUB-Q SCH (16:00)
[2021-02-26] MEDS: ENOXAPARIN 80 MG/0.8 ML INJ SUB-Q SCH ×3 (17:40→23:36)
[2021-02-27] MEDS ORDERED: METOPROLOL TARTRATE 5 MG/5 ML INJ IV ONE (04:54)
[2021-02-27] MEDS: D5W/0.45% NACL 1,000 ML IV SCH (06:25)
[2021-02-27 08:23] LABS: Basophils % (Auto) 0.2 % (0.0-1.8); Eosinophils # (Auto) 0.2 K/mm3 (0.0-0.4); Eosinophils % (Auto) 2.5 % (0.0-4.3); Hematocrit 44.7 % (35.5-45.6); Hemoglobin 15.3 gm/dl (11.8-15.2); Lymphocytes # (Auto) 1.1 K/mm3 (1.2-5.4); Lymphocytes % (Auto) 11.1 % (13.4-35.0); Mean Corpuscular HGB Conc 34 % (32-34); Mean Corpuscular Volume 98 fl (84-94); Monocytes # (Auto) 1.4 K/mm3 (0.0-0.8); Platelet Count 224 K/mm3 (140-440); Red Blood Count 4.54 M/mm3 (3.65-5.03); Red Cell Distribution Width 12.8 % (13.2-15.2)
[2021-02-27 08:48] LABS: BUN/Creatinine Ratio 25; Blood Urea Nitrogen 28 mg/dL (9-20); Calcium 7.9 mg/dL (8.4-10.2); Hemolysis Index 2
--- NOTE | 2021-02-27 09:10 | Progress Note ---
Assessment and Plan High Grade Small Bowel Obstruction FAN possibly 2/2 prerenal etiology in setting of vomiting and poor oral intake, hypotension, no obstruction Hypotension Hypokalemia Hx of AAA repair Plan: - FAN resolved - IVF switched to 1/2 NS for rising Na due to poor oral fluid intake - No hydronephrosis noted on CT AP w/o contrast study on 02/22/21 - Renally dose medications - Avoid nephrotoxic agents - Lucero Catheter: No Subjective Date of service: 02/27/21 Principal diagnosis: ARF Interval history: developed Afib with RVR last night, cont to be NPO Objective - Vital Signs Vital signs: Vital Signs - 12hr 02/26/21 02/27/21 02/27/21 21:21 04:26 06:25 Temperature 98.5 F 97.8 F Pulse Rate 50 L 100 H 100 H Respiratory 18 18 Rate Blood Pressure 152/101 168/125 168/125 O2 Sat by Pulse 91 97 Oximetry - Lab 02/27/21 07:07 02/27/21 07:07 Most recent lab results Calcium 7.9 mg/dL (8.4-10.2) L 02/27/21 07:07 Phosphorus 5.40 mg/dL (2.5-4.5) H 02/23/21 05:24 Magnesium 2.30 mg/dL (1.7-2.3) 02/27/21 07:07 Urine Creatinine 198.5 mg/dL (0.1-20.0) H 02/22/21 Unknown Urine Sodium 11 mmol/L 02/22/21 Unknown Urine Total Protein 38 mg/dL (5-11.8) H 02/22/21 Unknown Medications & Allergies - Medications Allergies/Adverse Reactions: Allergies No Known Allergies Allergy (Verified 02/22/21 15:01) Home Medications: Home Medications Medication Instructions Recorded Confirmed Last Taken Type AtorvaSTATin 40 mg PO QHS 02/15/20 02/22/21 Unknown History Metoprolol Succinate 50 mg PO DAILY 02/15/20 02/22/21 1 Day Ago History ~02/21/21 Active Medications: Generic Name Dose Route Start Last Admin Trade Name Freq PRN Reason Stop Dose Admin Enoxaparin Sodium 70 mg 02/26/21 17:00 02/26/21 23:36 Enoxaparin 80 Mg/0.8 Ml Inj SUB-Q Not Given Q12HR BULL Hydrophilic Ointment 1 applic 02/25/21 09:43 02/25/21 15:03 Lip Therapy Vaseline TP 1 applic DIRECT PRN Administration Dry Lips Dextrose/Sodium Chloride 1,000 mls @ 125 mls/hr 02/27/21 05:00 02/27/21 06:25 D5/0.45ns IV 75 mls/hr DIRECT BULL Administration Metoprolol Tartrate 5 mg 02/27/21 09:15 Metoprolol Tartrate 5 Mg/5 Ml Inj IV Q8H BULL Morphine Sulfate 2 mg 02/22/21 11:30 02/25/21 17:11 Morphine 2 Mg/1 Ml Inj IV 2 mg Q3H PRN Administration Pain, Moderate (4-6) Ondansetron HCl 4 mg 02/22/21 11:29 02/23/21 02:43 Ondansetron 4 Mg/2 Ml Inj IV 4 mg Q6H PRN Administration N/V unrelieved by Baldomero
[2021-02-27] MEDS: ENOXAPARIN 80 MG/0.8 ML INJ SUB-Q SCH ×2 (09:41→21:06)
--- NOTE | 2021-02-27 10:14 | XRay Report ---
ABDOMEN 3 VIEW(S) INDICATION / CLINICAL INFORMATION: sbo. COMPARISON: Abdomen series from yesterday FINDINGS: TUBES / LINES: The NG tube has been retracted into the distal esophagus and should be advanced at [facility] st 10 cm. BOWEL GAS PATTERN: Persistent mild diffuse gaseous distention of the bowel with full thickening in th e left mid abdomen suggesting underlying inflammation. FREE AIR / EXTRALUMINAL GAS: None seen. ADDITIONAL FINDINGS: No significant additional findings. IMPRESSION: 1. Malpositioned NG tube as above. 2. Similar appearing bowel findings. Given diffuse gaseous distention, postoperative ileus is high in the differential. There is also fold thickening suggesting inflammation along the bowel in the left lateral mid abdomen region. Signer Name: Brock Tijerina MD Signed: 02/27/2021 10:09 AM Workstation Name: [id number]
--- NOTE | 2021-02-27 12:18 | Progress Note ---
Assessment and Plan Assessment and plan: 65-year-old -Norwegian male with past medical history significant for aortic aneurysm repair, hypertension, penile implant presented to the emergency department with complaints of abdominal pain that started 4 days ago. Patient states the pain was sharp, 10 out of 10 intensity, with no radiation, no aggravating or alleviating factors identified, patient has associated persistent nausea and vomiting. She was not eating and drinking for the last 4 days. Patient did not have any bowel movement, could not pass gas. Patient is to call his vascular surgeon and told him to go to the emergency department, his vascular surgeon stated it is not a vascular problem. In the emergency department patient was hypotensive and was given bolus of IV fluids and blood pressure was corrected. CT abdomen and pelvis showed small bowel obstruction with transition point. General surgery was consulted. Patient has elevated BUN and creatinine and nephrology was consulted. Patient admitted to the floor for further evaluation and management. High-grade small bowel obstruction -N.p.o., IV fluids, pain control -during my examination patient was given pain medication and general pain resolved -General surgery consulted -We will continue to monitor Hypotension -Likely due to poor oral intake, persistent nausea and vomiting -Patient was given bolus of IV fluids and corrected -We will continue with normal saline -Held blood pressure medications Acute renal failure -Likely due to dehydration, patient is on IV fluids -Nephrology consulted History of aortic aneurysm repair -CT did not show acute abnormalities -H&H is stable DVT prophylaxis -SCDs because patient may need surgery CODE STATUS -Full Disposition; admit to medical floor. Management plan was discussed with the patient and was in agreement with the plan of care. 02/23/2021 -Blood pressure was low this morning and was given a bolus of normal saline. Continue with normal saline at 150 mL/h -Slight improvement in creatinine level, patient is hypokalemic and was given potassium -Nephrology consult appreciated -Patient was seen by general surgery and recommend NG tube decompression 02/24/2021 -FAN is improving, continue with IV fluids. Nephrology consult appreciated. -Abdominal x-ray this morning showed worsening of small bowel obstruction, patient was evaluated by general surgery and considering to do laparotomy and lysis of adhesion, will follow with the surgeon -Chest x-ray showed 1.7 cm mass on the right perihilar area, I ordered a CT chest without contrast -Urine culture is negative and I stop IV antibiotic 02/25: s/p EX LAP, Continue supportive care, Awaiting surgical re-evaluation, Renal function showing some improvement. Continue to monitor. 02/26: Noted tachycardia and hypotensive. Discussed with nursing staff, will give a bolus of fluids and obtain EKG. Patient is on metoprolol outpatient, will co ntinue to hold. Renal function improving. 02/27: Patient yesterday noted to have Atrial fibrillation with RVR. Started on IV metoprolol and Enoxaparin. Will transfer to Telemetry. He remains on strict NPO History Interval history: Patient was seen and evaluated this morning, No bowel movement, But with flatus per the patient, on NG tube decompression but was not to suction Patient admitted for high-grade small bowel obstruction and FAN Hospitalist Physical - Physical exam Narrative exam: Not in cardiopulmonary distress. The patient appeared well nourished and normally developed. NGT inplace Vital signs as documented. Head exam is unremarkable. No scleral icterus . Neck is without jugular venous distension, thyromegaly, or carotid bruits. Lungs are clear to auscultation. Cardiac exam reveals regular rate and Rhythm. Abdominal exam reveals normal bowel sounds, nontender, no organomegaly. Extremities are nonedematous and both femoral and pedal pulses are normal. MUSIC EXECUTIVE: Alert and oriented 3. No focal weakness. - Constitutional Vitals: Temp Pulse Resp BP Pulse Ox 97.8 F 100 H 18 168/125 97 02/27/21 04:26 02/27/21 06:25 02/27/21 04:26 02/27/21 06:25 02/27/21 04:26 General appearance: Present: no acute distress HEART Score - HEART Score Troponin: Troponin T < 0.010 ng/mL (0.00-0.029) 02/27/21 07:07 Results - Labs CBC & Chem 7: 02/27/21 07:07 02/27/21 07:07 Labs: Laboratory Last Values WBC 9.8 K/mm3 (4.5-11.0) 02/27/21 07:07 RBC 4.54 M/mm3 (3.65-5.03) 02/27/21 07:07 Hgb 15.3 gm/dl (11.8-15.2) H 02/27/21 07:07 Hct 44.7 % (35.5-45.6) 02/27/21 07:07 MCV 98 fl (84-94) H 02/27/21 07:07 MCH 34 pg (28-32) H 02/27/21 07:07 MCHC 34 % (32-34) 02/27/21 07:07 RDW 12.8 % (13.2-15.2) L 02/27/21 07:07 Plt Count 224 K/mm3 (140-440) 02/27/21 07:07 Lymph % (Auto) 11.1 % (13.4-35.0) L 02/27/21 07:07 [place] % (Auto) 14.0 % (0.0-7.3) H 02/27/21 07:07 Eos % (Auto) 2.5 % (0.0-4.3) 02/27/21 07:07 Baso % (Auto) 0.2 % (0.0-1.8) 02/27/21 07:07 Lymph # (Auto) 1.1 K/mm3 (1.2-5.4) L 02/27/21 07:07 [place] # (Auto) 1.4 K/mm3 (0.0-0.8) H 02/27/21 07:07 Eos # (Auto) 0.2 K/mm3 (0.0-0.4) 02/27/21 07:07 Baso # (Auto) 0.0 K/mm3 (0.0-0.1) 02/27/21 07:07 Add Manual Diff Complete 02/22/21 08:21 Total Counted 100 02/22/21 08:21 Seg Neutrophils % 72.2 % (40.0-70.0) H 02/27/21 07:07 Seg Neuts % (Manual) 81.0 % (40.0-70.0) H 02/22/21 08:21 Lymphocytes % (Manual) 6.0 % (13.4-35.0) L 02/22/21 08:21 Monocytes % (Manual) 12.0 % (0.0-7.3) H 02/22/21 08:21 Eosinophils % (Manual) 1.0 % (0.0-4.3) 02/22/21 08:21 Nucleated RBC % Not Reportable 02/22/21 08:21 Seg Neutrophils # 7.1 K/mm3 (1.8-7.7) 02/27/21 07:07 Seg Neutrophils # Man 7.0 K/mm3 (1.8-7.7) 02/22/21 08:21 Band Neutrophils # 0.0 K/mm3 02/22/21 08:21 Lymphocytes # (Manual) 0.5 K/mm3 (1.2-5.4) L 02/22/21 08:21 Abs React Lymphs (Man) 0.0 K/mm3 02/22/21 08:21 Monocytes # (Manual) 1.0 K/mm3 (0.0-0.8) H 02/22/21 08:21 Eosinophils # (Manual) 0.1 K/mm3 (0.0-0.4) 02/22/21 08:21 Basophils # (Manual) 0.0 K/mm3 (0.0-0.1) 02/22/21 08:21 Metamyelocytes # 0.0 K/mm3 02/22/21 08:21 Myelocytes # 0.0 K/mm3 02/22/21 08:21 Promyelocytes # 0.0 K/mm3 02/22/21 08:21 Blast Cells # 0.0 K/mm3 02/22/21 08:21 WBC Morphology Not Reportable 02/22/21 08:21 WBC Morphology TNR 02/22/21 08:21 Hypersegmented Neuts Not Reportable 02/22/21 08:21 Hyposegmented Neuts Not Reportable 02/22/21 08:21 Hypogranular Neuts Not Reportable 02/22/21 08:21 Smudge Cells Not Reportable 02/22/21 08:21 Toxic Granulation Not Reportable 02/22/21 08:21 Toxic Vacuolation Not Reportable 02/22/21 08:21 Dohle Bodies Not Reportable 02/22/21 08:21 Pelger-Huet Anomaly Not Reportable 02/22/21 08:21 An Rods Not Reportable 02/22/21 08:21 Platelet Estimate Consistent w auto 02/22/21 08:21 Clumped Platelets Not Reportable 02/22/21 08:21 Plt Clumps, EDTA Not Reportable 02/22/21 08:21 Large Platelets Not Reportable 02/22/21 08:21 Giant Platelets Not Reportable 02/22/21 08:21 Platelet Satelliting Not Reportable 02/22/21 08:21 Plt Morphology Comment Not Reportable 02/22/21 08:21 RBC Morphology Not Reportable 02/22/21 08:21 Dimorphic RBCs Not Reportable 02/22/21 08:21 Polychromasia Not Reportable 02/22/21 08:21 Hypochromasia Not Reportable 02/22/21 08:21 Poikilocytosis Not Reportable 02/22/21 08:21 Anisocytosis Not Reportable 02/22/21 08:21 Microcytosis Not Reportable 02/22/21 08:21 Macrocytosis Not Reportable 02/22/21 08:21 Spherocytes Not Reportable 02/22/21 08:21 Pappenheimer Bodies Not Reportable 02/22/21 08:21 Sickle Cells Not Reportable 02/22/21 08:21 Target Cells Not Reportable 02/22/21 08:21 Tear Drop Cells Not Reportable 02/22/21 08:21 Ovalocytes Not Reportable 02/22/21 08:21 Helmet Cells Not Reportable 02/22/21 08:21 [place] Bodies Not Reportable 02/22/21 08:21 Nye Rings Not Reportable 02/22/21 08:21 Minnie Cells Few 02/22/21 08:21 Bite Cells Not Reportable 02/22/21 08:21 Crenated Cell Not Reportable 02/22/21 08:21 Elliptocytes Few 02/22/21 08:21 Acanthocytes (Spur) Not Reportable 02/22/21 08:21 Rouleaux Not Reportable 02/22/21 08:21 Hemoglobin C Crystals Not Reportable 02/22/21 08:21 Schistocytes Rare 02/22/21 08:21 Malaria parasites Not Reportable 02/22/21 08:21 Jermain Bodies Not Reportable 02/22/21 08:21 Hem Pathologist Commnt No 02/22/21 08:21 Sodium 152 mmol/L (137-145) H 02/27/21 07:07 Potassium 3.8 mmol/L (3.6-5.0) 02/27/21 07:07 Chloride 115.8 mmol/L (98-107) H 02/27/21 07:07 Carbon Dioxide 25 mmol/L (22-30) 02/27/21 07:07 Anion Gap 15 mmol/L 02/27/21 07:07 BUN 28 mg/dL (9-20) H 02/27/21 07:07 Creatinine 1.1 mg/dL (0.8-1.3) 02/27/21 07:07 Estimated GFR > 60 ml/min 02/27/21 07:07 BUN/Creatinine Ratio 25 % 02/27/21 07:07 Glucose 87 mg/dL (75-100) 02/27/21 07:07 Calcium 7.9 mg/dL (8.4-10.2) L 02/27/21 07:07 Phosphorus 5.40 mg/dL (2.5-4.5) H 02/23/21 05:24 Magnesium 2.30 mg/dL (1.7-2.3) 02/27/21 07:07 Total Bilirubin 0.80 mg/dL (0.1-1.2) 02/22/21 08:21 Direct Bilirubin 0.2 mg/dL (0-0.2) 02/22/21 08:21 Indirect Bilirubin 0.6 mg/dL 02/22/21 08:21 AST 16 units/L (5-40) 02/22/21 08:21 ALT 9 units/L (7-56) 02/22/21 08:21 Alkaline Phosphatase 72 units/L (35-129) 02/22/21 08:21 Troponin T < 0.010 ng/mL (0.00-0.029) 02/27/21 07:07 Total Protein 8.0 g/dL (6.3-8.2) 02/22/21 08:21 Albumin 4.3 g/dL (3.9-5) 02/22/21 08:21 Albumin/Globulin Ratio 1.2 % 02/22/21 08:21 Lipase 18 units/L (13-60) 02/22/21 08:21 Urine Color Bianca (Yellow) 02/22/21 09:23 Urine Turbidity Cloudy (Clear) 02/22/21 09:23 Urine pH 5.0 (5.0-7.0) 02/22/21 09:23 Ur Specific [place] 1.017 (1.003-1.030) 02/22/21 09:23 Urine Protein 100 mg/dl mg/dL (Negative) 02/22/21 09:23 Urine Glucose (UA) Neg mg/dL (Negative) 02/22/21 09:23 Urine Ketones Neg mg/dL (Negative) 02/22/21 09:23 Urine Blood Mod (Negative) 02/22/21 09:23 Urine Nitrite Neg (Negative) 02/22/21 09:23 Urine Bilirubin Neg (Negative) 02/22/21 09:23 Urine Urobilinogen 2.0 mg/dL (<2.0) 02/22/21 09:23 Ur Leukocyte Esterase Neg (Negative) 02/22/21 09:23 Urine WBC (Auto) 9.0 /HPF (0.0-6.0) H 02/22/21 09:23 Urine RBC (Auto) 10.0 /HPF (0.0-6.0) 02/22/21 09:23 U Epithel Cells (Auto) 2.0 /HPF (0-13.0) 02/22/21 09:23 Hyaline Casts 23 /LPF 02/22/21 09:23 Urine Mucus 2+ /HPF 02/22/21 09:23 Urine Eosinophils None seen (None Seen) 02/22/21 Unknown Urine Creatinine 198.5 mg/dL (0.1-20.0) H 02/22/21 Unknown Urine Microalbumin 2.6 mg/dL (0.1-34.0) 02/22/21 Unknown Microalb/Creat Ratio 13.0 ug/mg 02/22/21 Unknown Protein/Creatinin Ratio 0.19 02/22/21 Unknown Urine Sodium 11 mmol/L 02/22/21 Unknown Urine Total Protein 38 mg/dL (5-11.8) H 02/22/21 Unknown Blood Type A POSITIVE 02/24/21 12:15 Antibody Screen Negative 02/24/21 12:15 Lucero/IV: Voiding Method Toilet Active Medications - Current Medications Current Medications: Generic Name Dose Route Start Last Admin Trade Name Freq PRN Reason Stop Dose Admin Enoxaparin Sodium 70 mg 02/26/21 17:00 02/27/21 09:41 Enoxaparin 80 Mg/0.8 Ml Inj SUB-Q 70 mg Q12HR BULL Administration Hydrophilic Ointment 1 applic 02/25/21 09:43 02/25/21 15:03 Lip Therapy Vaseline TP 1 applic DIRECT PRN Administration Dry Lips Dextrose/Sodium Chloride 1,000 mls @ 125 mls/hr 02/27/21 05:00 02/27/21 06:25 D5/0.45ns IV 75 mls/hr DIRECT BULL Administration Metoprolol Tartrate 5 mg 02/27/21 14:00 Metoprolol Tartrate 5 Mg/5 Ml Inj IV Q8H BULL Morphine Sulfate 2 mg 02/22/21 11:30 02/25/21 17:11 Morphine 2 Mg/1 Ml Inj IV 2 mg Q3H PRN Administration Pain, Moderate (4-6) Ondansetron HCl 4 mg 02/22/21 11:29 02/23/21 02:43 Ondansetron 4 Mg/2 Ml Inj IV 4 mg Q6H PRN Administration N/V unrelieved by Baldomero Nutrition/Malnutrition Assess - Dietary Evaluation Nutrition/Malnutrition Findings: Nutrition Notes Start: 02/24/21 11:22 Freq: Status: Active Protocol: Document 02/24/21 11:22 [facility] (Rec: 02/24/21 11:27 [facility] [id number]) Nutrition Notes Need for Assessment generated from: meeting manager Initial or Follow up Assessment Current Diagnosis Acute Kidney Injury, Hypertension,Small Bowel Obstruction Current Diet NPO Labs/Tests K 3.2 BUN 90 Cr 2.5 Pertinent Medications 10mEq KCl at 100ml/hr x 4 bags , NS at 150ml/hr Height 5 ft 11 in Weight 74 kg [place] Body Weight (kg) 78.18 BMI 22.7 Weight Status Appropriate Subjective/Other Information Pt screened for new onsest of DM (not indicated in PMHx and no medications ordered; BG labs WNL) and skin risk ( Lucas score: 17). Pt admitted with SBO; NGT to suction at this time. 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 No Is Patient Ambulatory and/or Out of Bed Yes REE-([facility]-ambulatory/OOB) [ 1997.269 [id number]] Calculation Used for Recommendations [facility] Additional Notes Pro needs 0.8-1.2g/k-89g/ day Fluid needs 1ml/kcal Nutrition Intervention Change Diet Order: Diet advancement when medically feasible Goal #1 Advance diet to meet nutrient needs Anticipated Discharge Needs: Unable to identify at this time Follow-Up By: 02/27/21 Additional Comments F/U: diet advancement, POC
--- NOTE | 2021-02-27 14:05 | Electrocardiograph Report ---
[facility] Test Date: 2021-02-26 Test Time: 01:06:07 Pat Name: DARÍO SANTILLAN Department: Room: A387 1 Gender: M Diesel Service Technician: TARUN : 1955 Requested By: MATTHEW SYED Order Number: [id number] Reading MD: Lele Strauss Measurements Intervals [place] Rate: 124 P: 0 FL: 80 QRS: 55 QRSD: 95 T: 25 QT: 327 QTc: 470 Interpretive Statements Atrial tachycardia No previous ECG available for comparison Electronically Signed On 02-27-2021 14:04:37 EDT by Lele Strauss
[2021-02-27] MEDS: METOPROLOL TARTRATE 5 MG/5 ML INJ IV SCH ×2 (14:17→21:06)
--- NOTE | 2021-02-27 14:31 | Electrocardiograph Report ---
[facility] Test Date: 2021-02-27 Test Time: 12:06:10 Pat Name: DARÍO SANTILLAN Department: Room: A387 1 Gender: M Trapeze Artist: MARILIN : 1955 Requested By: KRISTYN SKAGGS Order Number: [id number] Reading MD: Lele Strauss Measurements Intervals [place] Rate: 99 P: 68 ID: [id number] QRS: 70 QRSD: 93 T: 42 QT: 371 QTc: 476 Interpretive Statements Sinus rhythm Low voltage, extremity leads Compared to ECG 02/26/2021 01:06:07 Sinus rhythm has replaced atrial tachycardia Electronically Signed On 02-27-2021 14:30:41 EDT by Lele Strauss
[2021-02-27] MEDS ORDERED: LIP THERAPY VASELINE TP PRN (16:45)
[2021-02-27] MEDS: LIP THERAPY VASELINE TP PRN (17:44)
--- NOTE | 2021-02-27 17:49 | Progress Note ---
Assessment and Plan Initiate IV Lopressor 5mg q8h with hold parameters. May titrate up if needed for rate control and/or BP optimization while pt remains NPO. Continue anticoagulation with SQ Lovenox. Will revisit OAC when pt is tolerating PO meds; however, pt is very adamant about declining OAC at this time. Pt seen in conjunction with Dr. Austin Wynne, who agrees with the assessment and plan of care. - Patient Problems (1) SBO (small bowel obstruction) Current Visit: Yes Status: Acute (2) Paroxysmal atrial fibrillation with RVR Current Visit: Yes Status: Chronic (3) HTN (hypertension) Current Visit: Yes Status: Chronic Qualifiers: Hypertension type: essential hypertension Qualified Code(s): I10 - Essential (primary) hypertension (4) S/P AAA (abdominal aortic aneurysm) repair Current Visit: Yes Status: Chronic Subjective Date of service: 02/27/21 Principal diagnosis: SBO, PAF with RVR Interval history: Upset that he cannot eat or drink. Otherwise doing ok. No cardiac complaints. Tele reviewed - SR 90s this AM with intermittent AF noted, no events overnight. Objective Last Vital Signs Temp 98.0 F 02/27/21 15:36 Pulse 94 H 02/27/21 15:36 Resp 20 02/27/21 15:36 BP 149/113 02/27/21 15:36 Pulse Ox 95 02/27/21 15:36 - Physical Examination General: No Apparent Distress HEENT: Positive: EOMI, Normocephaly, Mucus Membranes Moist Neck: Positive: neck supple, trachea midline Cardiac: Positive: Reg Rate and Rhythm, S1/S2 Lungs: Positive: clear to auscultation Neuro: Positive: Grossly Intact Abdomen: Positive: Other (NGT in situ) Skin: Negative: Rash Musculoskeletal: No Pain Extremities: Present: upper extr. pulses, lower extr. pulses. Absent: edema - Labs and Meds CBC 02/27/21 Range/Units 07:07 WBC 9.8 (4.5-11.0) K/mm3 RBC 4.54 (3.65-5.03) M/mm3 Hgb 15.3 H (11.8-15.2) gm/dl Hct 44.7 (35.5-45.6) % Plt Count 224 (140-440) K/mm3 Lymph # (Auto) 1.1 L (1.2-5.4) K/mm3 [place] # (Auto) 1.4 H (0.0-0.8) K/mm3 Eos # (Auto) 0.2 (0.0-0.4) K/mm3 Baso # (Auto) 0.0 (0.0-0.1) K/mm3 Comprehensive Metabolic Panel 02/27/21 Range/Units 07:07 Sodium 152 H (137-145) mmol/L Potassium 3.8 (3.6-5.0) mmol/L Chloride 115.8 H (98-107) mmol/L Carbon Dioxide 25 (22-30) mmol/L BUN 28 H (9-20) mg/dL Creatinine 1.1 (0.8-1.3) mg/dL Glucose 87 (75-100) mg/dL Calcium 7.9 L (8.4-10.2) mg/dL - Imaging and Cardiology EKG: report reviewed, image reviewed Echo: report reviewed (02/26/2021 - EF 50-55%, mild pulm HTN, mild TR) - Telemetry EKG Rhythm: Sinus Rhythm - EKG Sinus rhythms and dysrhythmias: sinus rhythm
--- NOTE | 2021-02-27 20:44 | Progress Note ---
Assessment and Plan - Patient Problems (1) SBO (small bowel obstruction) Current Visit: Yes Status: Acute Plan to address problem: 1) Advance NG 10 cm 2) AXR, CBC and BMP in the am. Subjective Date of service: 02/27/21 Patient Reports: Positive: no new complaints, feels better, pain is less, bowel movement Objective Vital Signs - 12hr 02/27/21 02/27/21 02/27/21 11:54 14:17 15:36 Temperature 97.9 F 98.0 F Pulse Rate 101 H 101 H 94 H Respiratory 24 20 Rate Blood Pressure 158/104 158/104 149/113 O2 Sat by Pulse 94 95 Oximetry 02/27/21 19:41 Temperature Pulse Rate Respiratory 18 Rate Blood Pressure O2 Sat by Pulse Oximetry - Abdomen soft, bowel sounds hypoactive (Essentially NT. Incision is c/d/i. ND.) - Labs 02/27/21 07:07 02/27/21 07:07 Diabetes panel 02/27/21 Range/Units 07:07 Sodium 152 H (137-145) mmol/L Potassium 3.8 (3.6-5.0) mmol/L Chloride 115.8 H (98-107) mmol/L Carbon Dioxide 25 (22-30) mmol/L BUN 28 H (9-20) mg/dL Creatinine 1.1 (0.8-1.3) mg/dL Glucose 87 (75-100) mg/dL Calcium 7.9 L (8.4-10.2) mg/dL Calcium panel 02/27/21 Range/Units 07:07 Calcium 7.9 L (8.4-10.2) mg/dL Pituitary panel 02/27/21 Range/Units 07:07 Sodium 152 H (137-145) mmol/L Potassium 3.8 (3.6-5.0) mmol/L Chloride 115.8 H (98-107) mmol/L Carbon Dioxide 25 (22-30) mmol/L BUN 28 H (9-20) mg/dL Creatinine 1.1 (0.8-1.3) mg/dL Glucose 87 (75-100) mg/dL Calcium 7.9 L (8.4-10.2) mg/dL Adrenal panel 02/27/21 Range/Units 07:07 Sodium 152 H (137-145) mmol/L Potassium 3.8 (3.6-5.0) mmol/L Chloride 115.8 H (98-107) mmol/L Carbon Dioxide 25 (22-30) mmol/L BUN 28 H (9-20) mg/dL Creatinine 1.1 (0.8-1.3) mg/dL Glucose 87 (75-100) mg/dL Calcium 7.9 L (8.4-10.2) mg/dL - Imaging Abdominal x-ray: report reviewed Additional Studies: NG output 10 ml
[2021-02-28] MEDS: D5W/0.45% NACL 1,000 ML IV SCH ×2 (00:53→13:26)
[2021-02-28] MEDS: METOPROLOL TARTRATE 5 MG/5 ML INJ IV SCH ×3 (05:05→21:37)
[2021-02-28 07:54] LABS: Basophils % (Auto) 0.3 % (0.0-1.8); Eosinophils # (Auto) 0.3 K/mm3 (0.0-0.4); Eosinophils % (Auto) 2.9 % (0.0-4.3); Hemoglobin 16.6 gm/dl (11.8-15.2); Lymphocytes # (Auto) 1.2 K/mm3 (1.2-5.4); Lymphocytes % (Auto) 11.2 % (13.4-35.0); Mean Corpuscular HGB Conc 34 % (32-34); Mean Corpuscular Volume 98 fl (84-94); Monocytes # (Auto) 1.2 K/mm3 (0.0-0.8); Monocytes % (Auto) 10.8 % (0.0-7.3); Platelet Count 231 K/mm3 (140-440); Red Blood Count 5.03 M/mm3 (3.65-5.03); Red Cell Distribution Width 12.7 % (13.2-15.2)
--- NOTE | 2021-02-28 08:14 | XRay Report ---
ABDOMEN 3 VIEW(S) INDICATION / CLINICAL INFORMATION: sbo. COMPARISON: Yesterday FINDINGS: TUBES / LINES: Nasogastric tube has been advanced to the proximal stomach but should be advanced anot her 5 cm. BOWEL GAS PATTERN: Persistent mild gaseous distention of the bowel as can be seen with postoperative ileus, with mild fold thickening along the left lateral bowel wall which is likely descending colon. FREE AIR / EXTRALUMINAL GAS: None seen. ADDITIONAL FINDINGS: No significant additional findings. IMPRESSION: 1. Slight interval advancement of the nasogastric tube which should be advanced another 5 cm. Otherwi se largely unchanged exam. Signer Name: Brock Tijerina MD Signed: 02/28/2021 8:09 AM Workstation Name: [id number]
[2021-02-28 08:16] LABS: BUN/Creatinine Ratio 21; Blood Urea Nitrogen 19 mg/dL (9-20); Calcium 8.1 mg/dL (8.4-10.2); Hemolysis Index 75
[2021-02-28] MEDS: ENOXAPARIN 80 MG/0.8 ML INJ SUB-Q SCH ×2 (11:37→21:38)
--- NOTE | 2021-02-28 11:55 | Progress Note ---
Assessment and Plan High Grade Small Bowel Obstruction FAN possibly 2/2 prerenal etiology in setting of vomiting and poor oral intake, hypotension, no obstruction Hypotension Hypokalemia Hx of AAA repair Plan: - FAN resolved - hypernatremia resolved - No hydronephrosis noted on CT AP w/o contrast study on 02/22/21 - Renally dose medications - Avoid nephrotoxic agents - Lucero Catheter: No will sign off. Subjective Date of service: 02/28/21 Principal diagnosis: SBO, PAF with RVR Interval history: no overnight events Objective - Vital Signs Vital signs: Vital Signs - 12hr 02/28/21 02/28/21 04:37 08:18 Temperature 97.8 F 98.7 F Pulse Rate 98 H 93 H Respiratory 20 18 Rate Blood Pressure 135/99 141/107 O2 Sat by Pulse 88 100 Oximetry - Lab 02/28/21 07:40 02/28/21 07:40 Most recent lab results Calcium 8.1 mg/dL (8.4-10.2) L 02/28/21 07:40 Phosphorus 5.40 mg/dL (2.5-4.5) H 02/23/21 05:24 Magnesium 2.30 mg/dL (1.7-2.3) 02/27/21 07:07 Urine Creatinine 198.5 mg/dL (0.1-20.0) H 02/22/21 Unknown Urine Sodium 11 mmol/L 02/22/21 Unknown Urine Total Protein 38 mg/dL (5-11.8) H 02/22/21 Unknown Medications & Allergies - Medications Allergies/Adverse Reactions: Allergies No Known Allergies Allergy (Verified 02/22/21 15:01) Home Medications: Home Medications Medication Instructions Recorded Confirmed Last Taken Type AtorvaSTATin 40 mg PO QHS 02/15/20 02/22/21 Unknown History Metoprolol Succinate 50 mg PO DAILY 02/15/20 02/22/21 1 Day Ago History ~02/21/21 Active Medications: Generic Name Dose Route Start Last Admin Trade Name Freq PRN Reason Stop Dose Admin Enoxaparin Sodium 70 mg 02/26/21 17:00 02/28/21 11:37 Enoxaparin 80 Mg/0.8 Ml Inj SUB-Q 70 mg Q12HR BULL Administration Hydrophilic Ointment 1 applic 02/25/21 09:43 02/27/21 17:44 Lip Therapy Vaseline TP 1 applic DIRECT PRN Administration Dry Lips Dextrose/Sodium Chloride 1,000 mls @ 125 mls/hr 02/27/21 05:00 02/28/21 00:53 D5/0.45ns IV 75 mls/hr DIRECT BULL Administration Metoprolol Tartrate 5 mg 02/27/21 14:00 02/28/21 05:05 Metoprolol Tartrate 5 Mg/5 Ml Inj IV 5 mg Q8H BULL Administration Morphine Sulfate 2 mg 02/22/21 11:30 02/25/21 17:11 Morphine 2 Mg/1 Ml Inj IV 2 mg Q3H PRN Administration Pain, Moderate (4-6) Ondansetron HCl 4 mg 02/22/21 11:29 02/23/21 02:43 Ondansetron 4 Mg/2 Ml Inj IV 4 mg Q6H PRN Administration N/V unrelieved by Baldomero
--- NOTE | 2021-02-28 12:40 | Progress Note ---
Assessment and Plan Assessment and plan: 65-year-old -L[place] male with past medical history significant for aortic aneurysm repair, hypertension, penile implant presented to the emergency department with complaints of abdominal pain that started 4 days ago. Patient states the pain was sharp, 10 out of 10 intensity, with no radiation, no aggravating or alleviating factors identified, patient has associated persistent nausea and vomiting. She was not eating and drinking for the last 4 days. Patient did not have any bowel movement, could not pass gas. Patient is to call his vascular surgeon and told him to go to the emergency department, his vascular surgeon stated it is not a vascular problem. In the emergency department patient was hypotensive and was given bolus of IV fluids and blood pressure was corrected. CT abdomen and pelvis showed small bowel obstruction with transition point. General surgery was consulted. Patient has elevated BUN and creatinine and nephrology was consulted. Patient admitted to the floor for further evaluation and management. High-grade small bowel obstruction -N.p.o., IV fluids, pain control -during my examination patient was given pain medication and general pain resolved -General surgery consulted -We will continue to monitor Hypotension -Likely due to poor oral intake, persistent nausea and vomiting -Patient was given bolus of IV fluids and corrected -We will continue with normal saline -Held blood pressure medications Acute renal failure -Likely due to dehydration, patient is on IV fluids -Nephrology consulted History of aortic aneurysm repair -CT did not show acute abnormalities -H&H is stable DVT prophylaxis -SCDs because patient may need surgery CODE STATUS -Full Disposition; admit to medical floor. Management plan was discussed with the patient and was in agreement with the plan of care. 02/23/2021 -Blood pressure was low this morning and was given a bolus of normal saline. Continue with normal saline at 150 mL/h -Slight improvement in creatinine level, patient is hypokalemic and was given potassium -Nephrology consult appreciated -Patient was seen by general surgery and recommend NG tube decompression 02/24/2021 -FAN is improving, continue with IV fluids. Nephrology consult appreciated. -Abdominal x-ray this morning showed worsening of small bowel obstruction, patient was evaluated by general surgery and considering to do laparotomy and lysis of adhesion, will follow with the surgeon -Chest x-ray showed 1.7 cm mass on the right perihilar area, I ordered a CT chest without contrast -Urine culture is negative and I stop IV antibiotic 02/25: s/p EX LAP, Continue supportive care, Awaiting surgical re-evaluation, Renal function showing some improvement. Continue to monitor. 02/26: Noted tachycardia and hypotensive. Discussed with nursing staff, will give a bolus of fluids and obtain EKG. Patient is on metoprolol outpatient, will c ontinue to hold. Renal function improving. 02/27: Patient yesterday noted to have Atrial fibrillation with RVR. Started on IV metoprolol and Enoxaparin. Will transfer to Telemetry. He remains on strict NPO . 02/28/21 patient seen and examined. Patient has 1 bowel movement. No nausea vomiting. Surgery ordered clear liquid diet from dinner. BUN 19 creatinine 0.9. Potassium 5.2. Continue current management. Recheck CBC BMP in the morning. PT evaluation History Interval history: Patient is seen and examined Lab and medication reviewed No bowel movement. No nausea vomiting. Patient is on NG tube decompression. Patient is hungry. Hospitalist Physical - Constitutional Vitals: Temp Pulse Resp BP Pulse Ox 98.7 F 70 18 135/97 93 02/28/21 12:23 02/28/21 12:23 02/28/21 12:23 02/28/21 12:23 02/28/21 12:23 General appearance: Present: no acute distress - EENT Eyes: Present: PERRL, EOM intact ENT: hearing intact - Neck Neck: Present: supple, normal ROM - Respiratory Respiratory effort: normal Respiratory: bilateral: diminished - Cardiovascular Rhythm: regular Heart Sounds: Present: S1 & S2 - Extremities Extremities: no ischemia Peripheral Pulses: within normal limits - Abdominal General gastrointestinal: soft, non-tender, normal bowel sounds - Integumentary Integumentary: Present: clear, warm - Psychiatric Psychiatric: appropriate mood/affect, intact judgment & insight - Neurologic Neurologic: CNII-XII intact, moves all extremities HEART Score - HEART Score Troponin: Troponin T < 0.010 ng/mL (0.00-0.029) 02/27/21 07:07 Results - Labs CBC & Chem 7: 02/28/21 07:40 02/28/21 07:40 Labs: Laboratory Last Values WBC 11.1 K/mm3 (4.5-11.0) H 02/28/21 07:40 RBC 5.03 M/mm3 (3.65-5.03) 02/28/21 07:40 Hgb 16.6 gm/dl (11.8-15.2) H 02/28/21 07:40 Hct 49.0 % (35.5-45.6) H 02/28/21 07:40 MCV 98 fl (84-94) H 02/28/21 07:40 MCH 33 pg (28-32) H 02/28/21 07:40 MCHC 34 % (32-34) 02/28/21 07:40 RDW 12.7 % (13.2-15.2) L 02/28/21 07:40 Plt Count 231 K/mm3 (140-440) 02/28/21 07:40 Lymph % (Auto) 11.2 % (13.4-35.0) L 02/28/21 07:40 [place] % (Auto) 10.8 % (0.0-7.3) H 02/28/21 07:40 Eos % (Auto) 2.9 % (0.0-4.3) 02/28/21 07:40 Baso % (Auto) 0.3 % (0.0-1.8) 02/28/21 07:40 Lymph # (Auto) 1.2 K/mm3 (1.2-5.4) 02/28/21 07:40 [place] # (Auto) 1.2 K/mm3 (0.0-0.8) H 02/28/21 07:40 Eos # (Auto) 0.3 K/mm3 (0.0-0.4) 02/28/21 07:40 Baso # (Auto) 0.0 K/mm3 (0.0-0.1) 02/28/21 07:40 Add Manual Diff Complete 02/22/21 08:21 Total Counted 100 02/22/21 08:21 Seg Neutrophils % 74.8 % (40.0-70.0) H 02/28/21 07:40 Seg Neuts % (Manual) 81.0 % (40.0-70.0) H 02/22/21 08:21 Lymphocytes % (Manual) 6.0 % (13.4-35.0) L 02/22/21 08:21 Monocytes % (Manual) 12.0 % (0.0-7.3) H 02/22/21 08:21 Eosinophils % (Manual) 1.0 % (0.0-4.3) 02/22/21 08:21 Nucleated RBC % Not Reportable 02/22/21 08:21 Seg Neutrophils # 8.3 K/mm3 (1.8-7.7) H 02/28/21 07:40 Seg Neutrophils # Man 7.0 K/mm3 (1.8-7.7) 02/22/21 08:21 Band Neutrophils # 0.0 K/mm3 02/22/21 08:21 Lymphocytes # (Manual) 0.5 K/mm3 (1.2-5.4) L 02/22/21 08:21 Abs React Lymphs (Man) 0.0 K/mm3 02/22/21 08:21 Monocytes # (Manual) 1.0 K/mm3 (0.0-0.8) H 02/22/21 08:21 Eosinophils # (Manual) 0.1 K/mm3 (0.0-0.4) 02/22/21 08:21 Basophils # (Manual) 0.0 K/mm3 (0.0-0.1) 02/22/21 08:21 Metamyelocytes # 0.0 K/mm3 02/22/21 08:21 Myelocytes # 0.0 K/mm3 02/22/21 08:21 Promyelocytes # 0.0 K/mm3 02/22/21 08:21 Blast Cells # 0.0 K/mm3 02/22/21 08:21 WBC Morphology Not Reportable 02/22/21 08:21 WBC Morphology TNR 02/22/21 08:21 Hypersegmented Neuts Not Reportable 02/22/21 08:21 Hyposegmented Neuts Not Reportable 02/22/21 08:21 Hypogranular Neuts Not Reportable 02/22/21 08:21 Smudge Cells Not Reportable 02/22/21 08:21 Toxic Granulation Not Reportable 02/22/21 08:21 Toxic Vacuolation Not Reportable 02/22/21 08:21 Dohle Bodies Not Reportable 02/22/21 08:21 Pelger-Huet Anomaly Not Reportable 02/22/21 08:21 An Rods Not Reportable 02/22/21 08:21 Platelet Estimate Consistent w auto 02/22/21 08:21 Clumped Platelets Not Reportable 02/22/21 08:21 Plt Clumps, EDTA Not Reportable 02/22/21 08:21 Large Platelets Not Reportable 02/22/21 08:21 Giant Platelets Not Reportable 02/22/21 08:21 Platelet Satelliting Not Reportable 02/22/21 08:21 Plt Morphology Comment Not Reportable 02/22/21 08:21 RBC Morphology Not Reportable 02/22/21 08:21 Dimorphic RBCs Not Reportable 02/22/21 08:21 Polychromasia Not Reportable 02/22/21 08:21 Hypochromasia Not Reportable 02/22/21 08:21 Poikilocytosis Not Reportable 02/22/21 08:21 Anisocytosis Not Reportable 02/22/21 08:21 Microcytosis Not Reportable 02/22/21 08:21 Macrocytosis Not Reportable 02/22/21 08:21 Spherocytes Not Reportable 02/22/21 08:21 Pappenheimer Bodies Not Reportable 02/22/21 08:21 Sickle Cells Not Reportable 02/22/21 08:21 Target Cells Not Reportable 02/22/21 08:21 Tear Drop Cells Not Reportable 02/22/21 08:21 Ovalocytes Not Reportable 02/22/21 08:21 Helmet Cells Not Reportable 02/22/21 08:21 Wood-Dinosaur Bodies Not Reportable 02/22/21 08:21 [place] Rings Not Reportable 02/22/21 08:21 [place] Cells Few 02/22/21 08:21 Bite Cells Not Reportable 02/22/21 08:21 Crenated Cell Not Reportable 02/22/21 08:21 Elliptocytes Few 02/22/21 08:21 Acanthocytes (Spur) Not Reportable 02/22/21 08:21 Rouleaux Not Reportable 02/22/21 08:21 Hemoglobin C Crystals Not Reportable 02/22/21 08:21 Schistocytes Rare 02/22/21 08:21 Malaria parasites Not Reportable 02/22/21 08:21 Jermain Bodies Not Reportable 02/22/21 08:21 Hem Pathologist Commnt No 02/22/21 08:21 Sodium 144 mmol/L (137-145) D 02/28/21 07:40 Potassium 5.2 mmol/L (3.6-5.0) H D 02/28/21 07:40 Chloride 112.0 mmol/L (98-107) H 02/28/21 07:40 Carbon Dioxide 26 mmol/L (22-30) 02/28/21 07:40 Anion Gap 11 mmol/L 02/28/21 07:40 BUN 19 mg/dL (9-20) 02/28/21 07:40 Creatinine 0.9 mg/dL (0.8-1.3) 02/28/21 07:40 Estimated GFR > 60 ml/min 02/28/21 07:40 BUN/Creatinine Ratio 21 % 02/28/21 07:40 Glucose 108 mg/dL (75-100) H 02/28/21 07:40 POC Glucose 82 mg/dL (70-105) 02/28/21 12:24 Calcium 8.1 mg/dL (8.4-10.2) L 02/28/21 07:40 Phosphorus 5.40 mg/dL (2.5-4.5) H 02/23/21 05:24 Magnesium 2.30 mg/dL (1.7-2.3) 02/27/21 07:07 Total Bilirubin 0.80 mg/dL (0.1-1.2) 02/22/21 08:21 Direct Bilirubin 0.2 mg/dL (0-0.2) 02/22/21 08:21 Indirect Bilirubin 0.6 mg/dL 02/22/21 08:21 AST 16 units/L (5-40) 02/22/21 08:21 ALT 9 units/L (7-56) 02/22/21 08:21 Alkaline Phosphatase 72 units/L (35-129) 02/22/21 08:21 Troponin T < 0.010 ng/mL (0.00-0.029) 02/27/21 07:07 Total Protein 8.0 g/dL (6.3-8.2) 02/22/21 08:21 Albumin 4.3 g/dL (3.9-5) 02/22/21 08:21 Albumin/Globulin Ratio 1.2 % 02/22/21 08:21 Lipase 18 units/L (13-60) 02/22/21 08:21 Urine Color Bianca (Yellow) 02/22/21 09:23 Urine Turbidity Cloudy (Clear) 02/22/21 09:23 Urine pH 5.0 (5.0-7.0) 02/22/21 09:23 Ur Specific [place] 1.017 (1.003-1.030) 02/22/21 09:23 Urine Protein 100 mg/dl mg/dL (Negative) 02/22/21 09:23 Urine Glucose (UA) Neg mg/dL (Negative) 02/22/21 09:23 Urine Ketones Neg mg/dL (Negative) 02/22/21 09:23 Urine Blood Mod (Negative) 02/22/21 09:23 Urine Nitrite Neg (Negative) 02/22/21 09:23 Urine Bilirubin Neg (Negative) 02/22/21 09:23 Urine Urobilinogen 2.0 mg/dL (<2.0) 02/22/21 09:23 Ur Leukocyte Esterase Neg (Negative) 02/22/21 09:23 Urine WBC (Auto) 9.0 /HPF (0.0-6.0) H 02/22/21 09:23 Urine RBC (Auto) 10.0 /HPF (0.0-6.0) 02/22/21 09:23 U Epithel Cells (Auto) 2.0 /HPF (0-13.0) 02/22/21 09:23 Hyaline Casts 23 /LPF 02/22/21 09:23 Urine Mucus 2+ /HPF 02/22/21 09:23 Urine Eosinophils None seen (None Seen) 02/22/21 Unknown Urine Creatinine 198.5 mg/dL (0.1-20.0) H 02/22/21 Unknown Urine Microalbumin 2.6 mg/dL (0.1-34.0) 02/22/21 Unknown Microalb/Creat Ratio 13.0 ug/mg 02/22/21 Unknown Protein/Creatinin Ratio 0.19 02/22/21 Unknown Urine Sodium 11 mmol/L 02/22/21 Unknown Urine Total Protein 38 mg/dL (5-11.8) H 02/22/21 Unknown Blood Type A POSITIVE 02/24/21 12:15 Antibody Screen Negative 02/24/21 12:15 Lucero/IV: Voiding Method Urinal Active Medications - Current Medications Current Medications: Generic Name Dose Route Start Last Admin Trade Name Freq PRN Reason Stop Dose Admin Enoxaparin Sodium 70 mg 02/26/21 17:00 02/28/21 11:37 Enoxaparin 80 Mg/0.8 Ml Inj SUB-Q 70 mg Q12HR BULL Administration Hydrophilic Ointment 1 applic 02/25/21 09:43 02/27/21 17:44 Lip Therapy Vaseline TP 1 applic DIRECT PRN Administration Dry Lips Dextrose/Sodium Chloride 1,000 mls @ 125 mls/hr 02/27/21 05:00 02/28/21 00:53 D5/0.45ns IV 75 mls/hr DIRECT BULL Administration Metoprolol Tartrate 5 mg 02/27/21 14:00 02/28/21 05:05 Metoprolol Tartrate 5 Mg/5 Ml Inj IV 5 mg Q8H BULL Administration Morphine Sulfate 2 mg 02/22/21 11:30 02/25/21 17:11 Morphine 2 Mg/1 Ml Inj IV 2 mg Q3H PRN Administration Pain, Moderate (4-6) Ondansetron HCl 4 mg 02/22/21 11:29 02/23/21 02:43 Ondansetron 4 Mg/2 Ml Inj IV 4 mg Q6H PRN Administration N/V unrelieved by Baldomero Nutrition/Malnutrition Assess - Dietary Evaluation Nutrition/Malnutrition Findings: Nutrition Notes Start: 02/24/21 11:22 Freq: Status: Active Protocol: Document 02/27/21 14:52 (Rec: 02/27/21 14:55 [id number]) Nutrition Notes Initial or Follow up Reassessment Current Diagnosis Acute Kidney Injury, Hypertension,Small Bowel Obstruction Current Diet NPO Labs/Tests Na 152 BUN 28 Pertinent Medications D5 1/2 NS at 75 ml/hr Height 5 ft 11 in Weight 74 kg Usual Body Weight 75.45 kg [place] Body Weight (kg) 78.18 BMI 22.7 Weight Status Appropriate Subjective/Other Information FU for plan of care. Pt remanis NPO. Per RN, waiting for surgical MD to clear pt for diet. Burn Absent Trauma Absent Minimum of two criteria No Energy Intake (non-severe) <75% Estimated Energy Requirement >7 days #1 Nutrition Diagnosis Altered GI function Diagnosis Progress(for reassessment Continues documentation) Is patient on ventilator? No Is Patient Ambulatory and/or Out of Bed Yes [facility] [ 1997.269 [id number]] Calculation Used for Recommendations Feroz Urias Additional Notes Pro needs 0.8-1.2g/k-89g/ day Fluid needs 1ml/kcal Nutrition Intervention Change Diet Order: Diet advancement when medically feasible Goal #1 Advance diet to meet nutrient needs Anticipated Discharge Needs: Unable to identify at this time Follow-Up By: 02/28/21 Additional Comments FU for diet advancement or plan of care - Malnutrition Assessment Minimum of two criteria: No - Attestation Statement I have reviewed and agreed w/ Malnutrition eval & tx plan: No
--- NOTE | 2021-02-28 13:07 | Progress Note ---
Assessment and Plan - Patient Problems (1) SBO (small bowel obstruction) Current Visit: Yes Status: Acute Plan to address problem: 1) With minimal NG output, +flatus, +BM & a benign abdominal exam, I believe it is reasonable to dc NG and begin CLD. Will add MOM, 30 ml po daily. 2) AXR, CBC and BMP in the am Subjective Date of service: 02/28/21 Patient Reports: Positive: no new complaints, feels better, flatus, bowel movement Objective Vital Signs - 12hr 02/28/21 02/28/21 02/28/21 04:37 08:18 12:23 Temperature 97.8 F 98.7 F 98.7 F Pulse Rate 98 H 93 H 70 Respiratory 20 18 18 Rate Blood Pressure 135/99 141/107 135/97 O2 Sat by Pulse 88 100 93 Oximetry - Abdomen soft, bowel sounds normal (NT, ND) - Labs 02/28/21 07:40 02/28/21 07:40 Diabetes panel 02/28/21 Range/Units 07:40 Sodium 144 D (137-145) mmol/L Potassium 5.2 H D (3.6-5.0) mmol/L Chloride 112.0 H (98-107) mmol/L Carbon Dioxide 26 (22-30) mmol/L BUN 19 (9-20) mg/dL Creatinine 0.9 (0.8-1.3) mg/dL Glucose 108 H (75-100) mg/dL Calcium 8.1 L (8.4-10.2) mg/dL Calcium panel 02/28/21 Range/Units 07:40 Calcium 8.1 L (8.4-10.2) mg/dL Pituitary panel 02/28/21 Range/Units 07:40 Sodium 144 D (137-145) mmol/L Potassium 5.2 H D (3.6-5.0) mmol/L Chloride 112.0 H (98-107) mmol/L Carbon Dioxide 26 (22-30) mmol/L BUN 19 (9-20) mg/dL Creatinine 0.9 (0.8-1.3) mg/dL Glucose 108 H (75-100) mg/dL Calcium 8.1 L (8.4-10.2) mg/dL Adrenal panel 02/28/21 Range/Units 07:40 Sodium 144 D (137-145) mmol/L Potassium 5.2 H D (3.6-5.0) mmol/L Chloride 112.0 H (98-107) mmol/L Carbon Dioxide 26 (22-30) mmol/L BUN 19 (9-20) mg/dL Creatinine 0.9 (0.8-1.3) mg/dL Glucose 108 H (75-100) mg/dL Calcium 8.1 L (8.4-10.2) mg/dL - Imaging Abdominal x-ray: report reviewed
[2021-02-28] MEDS: MAGNESIUM HYDROXIDE (MOM) ORAL LIQD UDC PO SCH (13:21)
--- NOTE | 2021-02-28 17:56 | Progress Note ---
Assessment and Plan May increase IV Lopressor to 5mg q6h if needed for rate control and/or BP optimization while pt remains NPO. Plan to resume home Toprol when tolerating PO meds. Continue anticoagulation with SQ Lovenox. Will revisit initiation of OAC prior to discharge when pt is tolerating PO meds. Otherwise stable cardiac status. Will see peripherally over the weekend. Please do not hesitate to call if any questions or concerns regarding cardiac mgmt ([phone]). Pt seen in conjunction with Dr. Austin Wynne, who agrees with the assessment and plan of care. - Patient Problems (1) SBO (small bowel obstruction) Current Visit: Yes Status: Acute (2) PAF (paroxysmal atrial fibrillation) Current Visit: Yes Status: Chronic (3) HTN (hypertension) Current Visit: Yes Status: Chronic Qualifiers: Hypertension type: essential hypertension Qualified Code(s): I10 - Essential (primary) hypertension (4) HLD (hyperlipidemia) Current Visit: Yes Status: Chronic Qualifiers: Hyperlipidemia type: mixed hyperlipidemia Qualified Code(s): E78.2 - Mixed hyperlipidemia (5) S/P AAA (abdominal aortic aneurysm) repair Current Visit: Yes Status: Chronic Subjective Date of service: 02/28/21 Principal diagnosis: SBO, PAF with RVR Interval history: Tolerated CLD this AM. No cardiac complaints. Tele reviewed - SR 90s w/PACs, no events overnight. Objective Last Vital Signs Temp 98.7 F 02/28/21 16:38 Pulse 69 02/28/21 16:38 Resp 18 02/28/21 16:38 BP 147/109 02/28/21 16:38 Pulse Ox 94 02/28/21 16:38 - Physical Examination General: No Apparent Distress HEENT: Positive: EOMI, Normocephaly, Mucus Membranes Moist Neck: Positive: neck supple, trachea midline Cardiac: Positive: Reg Rate and Rhythm, S1/S2 Lungs: Positive: clear to auscultation Neuro: Positive: Grossly Intact Abdomen: Positive: Other (NGT in situ) Skin: Negative: Rash Musculoskeletal: No Pain Extremities: Present: lower extr. pulses. Absent: edema - Labs and Meds CBC 02/28/21 Range/Units 07:40 WBC 11.1 H (4.5-11.0) K/mm3 RBC 5.03 (3.65-5.03) M/mm3 Hgb 16.6 H (11.8-15.2) gm/dl Hct 49.0 H (35.5-45.6) % Plt Count 231 (140-440) K/mm3 Lymph # (Auto) 1.2 (1.2-5.4) K/mm3 [place] # (Auto) 1.2 H (0.0-0.8) K/mm3 Eos # (Auto) 0.3 (0.0-0.4) K/mm3 Baso # (Auto) 0.0 (0.0-0.1) K/mm3 Comprehensive Metabolic Panel 02/28/21 Range/Units 07:40 Sodium 144 D (137-145) mmol/L Potassium 5.2 H D (3.6-5.0) mmol/L Chloride 112.0 H (98-107) mmol/L Carbon Dioxide 26 (22-30) mmol/L BUN 19 (9-20) mg/dL Creatinine 0.9 (0.8-1.3) mg/dL Glucose 108 H (75-100) mg/dL Calcium 8.1 L (8.4-10.2) mg/dL - Imaging and Cardiology EKG: report reviewed, image reviewed Echo: report reviewed (02/26/2021 - EF 50-55%, mild pulm HTN, mild TR) - Telemetry EKG Rhythm: Sinus Rhythm - EKG Sinus rhythms and dysrhythmias: sinus rhythm
[2021-03-01 05:19] LABS: Basophils % (Auto) 0.4 % (0.0-1.8); Eosinophils # (Auto) 0.4 K/mm3 (0.0-0.4); Lymphocytes # (Auto) 1.4 K/mm3 (1.2-5.4); Lymphocytes % (Auto) 15.2 % (13.4-35.0); Mean Corpuscular HGB Conc 36 % (32-34); Mean Corpuscular Volume 97 fl (84-94); Monocytes # (Auto) 1.1 K/mm3 (0.0-0.8); Monocytes % (Auto) 11.8 % (0.0-7.3); Platelet Count 212 K/mm3 (140-440); Red Blood Count 4.01 M/mm3 (3.65-5.03); Red Cell Distribution Width 12.7 % (13.2-15.2)
[2021-03-01] MEDS: METOPROLOL TARTRATE 5 MG/5 ML INJ IV SCH ×3 (05:35→22:16)
[2021-03-01] MEDS: D5W/0.45% NACL 1,000 ML IV SCH (05:35)
[2021-03-01 05:43] LABS: BUN/Creatinine Ratio 16; Blood Urea Nitrogen 14 mg/dL (9-20); Calcium 7.7 mg/dL (8.4-10.2); Hemolysis Index 6
--- NOTE | 2021-03-01 07:53 | XRay Report ---
Abdomen 2 views INDICATION: Follow-up ileus IMPRESSION: When compared to yesterday's exam there has been no significant interval change. Midline abdominal teresa noted. Signer Name: Yong Ford MD Signed: 03/01/2021 7:48 AM Workstation Name: [id number]
[2021-03-01] MEDS: MAGNESIUM HYDROXIDE (MOM) ORAL LIQD UDC PO SCH (11:50)
[2021-03-01] MEDS: ENOXAPARIN 80 MG/0.8 ML INJ SUB-Q SCH ×2 (11:50→22:15)
--- NOTE | 2021-03-01 11:54 | Progress Note ---
Assessment and Plan - Patient Problems (1) SBO (small bowel obstruction) Current Visit: Yes Status: Acute Plan to address problem: 1) FLD 2) DC Morphine 3) Percocet 4) Discharge soon (24 hours) from my perspective. Subjective Date of service: 03/01/21 Patient Reports: Positive: no new complaints, pain is less, tolerating liquids well, flatus, bowel movement Objective Vital Signs - 12hr 03/01/21 03/01/21 03/01/21 03:00 04:33 05:35 Temperature 98.8 F Pulse Rate 86 82 Respiratory 20 18 Rate Blood Pressure 114/78 114/78 O2 Sat by Pulse 98 95 Oximetry 03/01/21 08:18 Temperature 98.7 F Pulse Rate 92 H Respiratory 18 Rate Blood Pressure 112/87 O2 Sat by Pulse 97 Oximetry - Abdomen soft, bowel sounds normal, other (ND, NT) - Labs 03/01/21 05:01 03/01/21 05:01 Diabetes panel 03/01/21 Range/Units 05:01 Sodium 141 (137-145) mmol/L Potassium 3.3 L D (3.6-5.0) mmol/L Chloride 105.1 (98-107) mmol/L Carbon Dioxide 29 (22-30) mmol/L BUN 14 (9-20) mg/dL Creatinine 0.9 (0.8-1.3) mg/dL Glucose 107 H (75-100) mg/dL Calcium 7.7 L (8.4-10.2) mg/dL Calcium panel 03/01/21 Range/Units 05:01 Calcium 7.7 L (8.4-10.2) mg/dL Pituitary panel 03/01/21 Range/Units 05:01 Sodium 141 (137-145) mmol/L Potassium 3.3 L D (3.6-5.0) mmol/L Chloride 105.1 (98-107) mmol/L Carbon Dioxide 29 (22-30) mmol/L BUN 14 (9-20) mg/dL Creatinine 0.9 (0.8-1.3) mg/dL Glucose 107 H (75-100) mg/dL Calcium 7.7 L (8.4-10.2) mg/dL Adrenal panel 03/01/21 Range/Units 05:01 Sodium 141 (137-145) mmol/L Potassium 3.3 L D (3.6-5.0) mmol/L Chloride 105.1 (98-107) mmol/L Carbon Dioxide 29 (22-30) mmol/L BUN 14 (9-20) mg/dL Creatinine 0.9 (0.8-1.3) mg/dL Glucose 107 H (75-100) mg/dL Calcium 7.7 L (8.4-10.2) mg/dL - Imaging Abdominal x-ray: report reviewed
--- NOTE | 2021-03-01 12:26 | Progress Note ---
Assessment and Plan Assessment and plan: 65-year-old -[place] male with past medical history significant for aortic aneurysm repair, hypertension, penile implant presented to the emergency department with complaints of abdominal pain that started 4 days ago. Patient states the pain was sharp, 10 out of 10 intensity, with no radiation, no aggravating or alleviating factors identified, patient has associated persistent nausea and vomiting. She was not eating and drinking for the last 4 days. Patient did not have any bowel movement, could not pass gas. Patient is to call his vascular surgeon and told him to go to the emergency department, his vascular surgeon stated it is not a vascular problem. In the emergency department patient was hypotensive and was given bolus of IV fluids and blood pressure was corrected. CT abdomen and pelvis showed small bowel obstruction with transition point. General surgery was consulted. Patient has elevated BUN and creatinine and nephrology was consulted. Patient admitted to the floor for further evaluation and management. High-grade small bowel obstruction -N.p.o., IV fluids, pain control -during my examination patient was given pain medication and general pain resolved -General surgery consulted -We will continue to monitor Hypotension -Likely due to poor oral intake, persistent nausea and vomiting -Patient was given bolus of IV fluids and corrected -We will continue with normal saline -Held blood pressure medications Acute renal failure -Likely due to dehydration, patient is on IV fluids -Nephrology consulted History of aortic aneurysm repair -CT did not show acute abnormalities -H&H is stable DVT prophylaxis -SCDs because patient may need surgery CODE STATUS -Full Disposition; admit to medical floor. Management plan was discussed with the patient and was in agreement with the plan of care. 02/23/2021 -Blood pressure was low this morning and was given a bolus of normal saline. Continue with normal saline at 150 mL/h -Slight improvement in creatinine level, patient is hypokalemic and was given potassium -Nephrology consult appreciated -Patient was seen by general surgery and recommend NG tube decompression 02/24/2021 -FAN is improving, continue with IV fluids. Nephrology consult appreciated. -Abdominal x-ray this morning showed worsening of small bowel obstruction, patient was evaluated by general surgery and considering to do laparotomy and lysis of adhesion, will follow with the surgeon -Chest x-ray showed 1.7 cm mass on the right perihilar area, I ordered a CT chest without contrast -Urine culture is negative and I stop IV antibiotic 02/25: s/p EX LAP, Continue supportive care, Awaiting surgical re-evaluation, Renal function showing some improvement. Continue to monitor. 02/26: Noted tachycardia and hypotensive. Discussed with nursing staff, will give a bolus of fluids and obtain EKG. Patient is on metoprolol outpatient, will c ontinue to hold. Renal function improving. 02/27: Patient yesterday noted to have Atrial fibrillation with RVR. Started on IV metoprolol and Enoxaparin. Will transfer to Telemetry. He remains on strict NPO . 02/28/21 patient seen and examined. Patient has 1 bowel movement. No nausea vomiting. Surgery ordered clear liquid diet from dinner. BUN 19 creatinine 0.9. Potassium 5.2. Continue current management. Recheck CBC BMP in the morning. PT evaluation 03/01/21 patient is seen and examined. Patient feels better. Patient has 1 Morel bowel movement. No nausea vomiting. Full liquid diet. Out of bed to chair. Potassium is 3.3. KCl 40 mg p.o. x1 dose. Continue current management. Discharge plan when cleared by surgery. PT evaluation History Interval history: Patient is seen and examined Lab and medication reviewed Patient has 1 Morel bowel movement. Patient feels better no nausea vomiting Hospitalist Physical - Constitutional Vitals: Temp Pulse Resp BP Pulse Ox 98.7 F 92 H 18 112/87 97 03/01/21 08:18 03/01/21 08:18 03/01/21 08:18 03/01/21 08:18 03/01/21 08:18 General appearance: Present: no acute distress - EENT Eyes: Present: PERRL, EOM intact ENT: hearing intact, clear oral mucosa, dentition normal - Neck Neck: Present: supple, normal ROM - Respiratory Respiratory effort: normal Respiratory: bilateral: diminished - Cardiovascular Rhythm: regular Heart Sounds: Present: S1 & S2 - Extremities Extremities: no ischemia Peripheral Pulses: within normal limits - Abdominal General gastrointestinal: soft, non-tender, normal bowel sounds - Integumentary Integumentary: Present: clear, warm, dry - Psychiatric Psychiatric: appropriate mood/affect, intact judgment & insight - Neurologic Neurologic: CNII-XII intact, moves all extremities HEART Score - HEART Score Troponin: Troponin T < 0.010 ng/mL (0.00-0.029) 02/27/21 07:07 Results - Labs CBC & Chem 7: 03/01/21 05:01 03/01/21 05:01 Labs: Laboratory Last Values WBC 9.0 K/mm3 (4.5-11.0) 03/01/21 05:01 RBC 4.01 M/mm3 (3.65-5.03) 03/01/21 05:01 Hgb 14.0 gm/dl (11.8-15.2) 03/01/21 05:01 Hct 39.0 % (35.5-45.6) D 03/01/21 05:01 MCV 97 fl (84-94) H 03/01/21 05:01 MCH 35 pg (28-32) H 03/01/21 05:01 MCHC 36 % (32-34) H 03/01/21 05:01 RDW 12.7 % (13.2-15.2) L 03/01/21 05:01 Plt Count 212 K/mm3 (140-440) 03/01/21 05:01 Lymph % (Auto) 15.2 % (13.4-35.0) 03/01/21 05:01 [place] % (Auto) 11.8 % (0.0-7.3) H 03/01/21 05:01 Eos % (Auto) 4.0 % (0.0-4.3) 03/01/21 05:01 Baso % (Auto) 0.4 % (0.0-1.8) 03/01/21 05:01 Lymph # (Auto) 1.4 K/mm3 (1.2-5.4) 03/01/21 05:01 [place] # (Auto) 1.1 K/mm3 (0.0-0.8) H 03/01/21 05:01 Eos # (Auto) 0.4 K/mm3 (0.0-0.4) 03/01/21 05:01 Baso # (Auto) 0.0 K/mm3 (0.0-0.1) 03/01/21 05:01 Add Manual Diff Complete 02/22/21 08:21 Total Counted 100 02/22/21 08:21 Seg Neutrophils % 68.6 % (40.0-70.0) 03/01/21 05:01 Seg Neuts % (Manual) 81.0 % (40.0-70.0) H 02/22/21 08:21 Lymphocytes % (Manual) 6.0 % (13.4-35.0) L 02/22/21 08:21 Monocytes % (Manual) 12.0 % (0.0-7.3) H 02/22/21 08:21 Eosinophils % (Manual) 1.0 % (0.0-4.3) 02/22/21 08:21 Nucleated RBC % Not Reportable 02/22/21 08:21 Seg Neutrophils # 6.2 K/mm3 (1.8-7.7) 03/01/21 05:01 Seg Neutrophils # Man 7.0 K/mm3 (1.8-7.7) 02/22/21 08:21 Band Neutrophils # 0.0 K/mm3 02/22/21 08:21 Lymphocytes # (Manual) 0.5 K/mm3 (1.2-5.4) L 02/22/21 08:21 Abs React Lymphs (Man) 0.0 K/mm3 02/22/21 08:21 Monocytes # (Manual) 1.0 K/mm3 (0.0-0.8) H 02/22/21 08:21 Eosinophils # (Manual) 0.1 K/mm3 (0.0-0.4) 02/22/21 08:21 Basophils # (Manual) 0.0 K/mm3 (0.0-0.1) 02/22/21 08:21 Metamyelocytes # 0.0 K/mm3 02/22/21 08:21 Myelocytes # 0.0 K/mm3 02/22/21 08:21 Promyelocytes # 0.0 K/mm3 02/22/21 08:21 Blast Cells # 0.0 K/mm3 02/22/21 08:21 WBC Morphology Not Reportable 02/22/21 08:21 WBC Morphology TNR 02/22/21 08:21 Hypersegmented Neuts Not Reportable 02/22/21 08:21 Hyposegmented Neuts Not Reportable 02/22/21 08:21 Hypogranular Neuts Not Reportable 02/22/21 08:21 Smudge Cells Not Reportable 02/22/21 08:21 Toxic Granulation Not Reportable 02/22/21 08:21 Toxic Vacuolation Not Reportable 02/22/21 08:21 Dohle Bodies Not Reportable 02/22/21 08:21 Pelger-Huet Anomaly Not Reportable 02/22/21 08:21 An Rods Not Reportable 02/22/21 08:21 Platelet Estimate Consistent w auto 02/22/21 08:21 Clumped Platelets Not Reportable 02/22/21 08:21 Plt Clumps, EDTA Not Reportable 02/22/21 08:21 Large Platelets Not Reportable 02/22/21 08:21 Giant Platelets Not Reportable 02/22/21 08:21 Platelet Satelliting Not Reportable 02/22/21 08:21 Plt Morphology Comment Not Reportable 02/22/21 08:21 RBC Morphology Not Reportable 02/22/21 08:21 Dimorphic RBCs Not Reportable 02/22/21 08:21 Polychromasia Not Reportable 02/22/21 08:21 Hypochromasia Not Reportable 02/22/21 08:21 Poikilocytosis Not Reportable 02/22/21 08:21 Anisocytosis Not Reportable 02/22/21 08:21 Microcytosis Not Reportable 02/22/21 08:21 Macrocytosis Not Reportable 02/22/21 08:21 Spherocytes Not Reportable 02/22/21 08:21 Pappenheimer Bodies Not Reportable 02/22/21 08:21 Sickle Cells Not Reportable 02/22/21 08:21 Target Cells Not Reportable 02/22/21 08:21 Tear Drop Cells Not Reportable 02/22/21 08:21 Ovalocytes Not Reportable 02/22/21 08:21 Helmet Cells Not Reportable 02/22/21 08:21 [place] Bodies Not Reportable 02/22/21 08:21 [place] Rings Not Reportable 02/22/21 08:21 Minnie Cells Few 02/22/21 08:21 Bite Cells Not Reportable 02/22/21 08:21 Crenated Cell Not Reportable 02/22/21 08:21 Elliptocytes Few 02/22/21 08:21 Acanthocytes (Spur) Not Reportable 02/22/21 08:21 Rouleaux Not Reportable 02/22/21 08:21 Hemoglobin C Crystals Not Reportable 02/22/21 08:21 Schistocytes Rare 02/22/21 08:21 Malaria parasites Not Reportable 02/22/21 08:21 Jermain Bodies Not Reportable 02/22/21 08:21 Hem Pathologist Commnt No 02/22/21 08:21 Sodium 141 mmol/L (137-145) 03/01/21 05:01 Potassium 3.3 mmol/L (3.6-5.0) L D 03/01/21 05:01 Chloride 105.1 mmol/L (98-107) 03/01/21 05:01 Carbon Dioxide 29 mmol/L (22-30) 03/01/21 05:01 Anion Gap 10 mmol/L 03/01/21 05:01 BUN 14 mg/dL (9-20) 03/01/21 05:01 Creatinine 0.9 mg/dL (0.8-1.3) 03/01/21 05:01 Estimated GFR > 60 ml/min 03/01/21 05:01 BUN/Creatinine Ratio 16 % 03/01/21 05:01 Glucose 107 mg/dL (75-100) H 03/01/21 05:01 POC Glucose 82 mg/dL (70-105) 02/28/21 12:24 Calcium 7.7 mg/dL (8.4-10.2) L 03/01/21 05:01 Phosphorus 5.40 mg/dL (2.5-4.5) H 02/23/21 05:24 Magnesium 2.30 mg/dL (1.7-2.3) 02/27/21 07:07 Total Bilirubin 0.80 mg/dL (0.1-1.2) 02/22/21 08:21 Direct Bilirubin 0.2 mg/dL (0-0.2) 02/22/21 08:21 Indirect Bilirubin 0.6 mg/dL 02/22/21 08:21 AST 16 units/L (5-40) 02/22/21 08:21 ALT 9 units/L (7-56) 02/22/21 08:21 Alkaline Phosphatase 72 units/L (35-129) 02/22/21 08:21 Troponin T < 0.010 ng/mL (0.00-0.029) 02/27/21 07:07 Total Protein 8.0 g/dL (6.3-8.2) 02/22/21 08:21 Albumin 4.3 g/dL (3.9-5) 02/22/21 08:21 Albumin/Globulin Ratio 1.2 % 02/22/21 08:21 Lipase 18 units/L (13-60) 02/22/21 08:21 Urine Color Bianca (Yellow) 02/22/21 09:23 Urine Turbidity Cloudy (Clear) 02/22/21 09:23 Urine pH 5.0 (5.0-7.0) 02/22/21 09:23 Ur Specific [place] 1.017 (1.003-1.030) 02/22/21 09:23 Urine Protein 100 mg/dl mg/dL (Negative) 02/22/21 09:23 Urine Glucose (UA) Neg mg/dL (Negative) 02/22/21 09:23 Urine Ketones Neg mg/dL (Negative) 02/22/21 09:23 Urine Blood Mod (Negative) 02/22/21 09:23 Urine Nitrite Neg (Negative) 02/22/21 09:23 Urine Bilirubin Neg (Negative) 02/22/21 09:23 Urine Urobilinogen 2.0 mg/dL (<2.0) 02/22/21 09:23 Ur Leukocyte Esterase Neg (Negative) 02/22/21 09:23 Urine WBC (Auto) 9.0 /HPF (0.0-6.0) H 02/22/21 09:23 Urine RBC (Auto) 10.0 /HPF (0.0-6.0) 02/22/21 09:23 U Epithel Cells (Auto) 2.0 /HPF (0-13.0) 02/22/21 09:23 Hyaline Casts 23 /LPF 02/22/21 09:23 Urine Mucus 2+ /HPF 02/22/21 09:23 Urine Eosinophils None seen (None Seen) 02/22/21 Unknown Urine Creatinine 198.5 mg/dL (0.1-20.0) H 02/22/21 Unknown Urine Microalbumin 2.6 mg/dL (0.1-34.0) 02/22/21 Unknown Microalb/Creat Ratio 13.0 ug/mg 02/22/21 Unknown Protein/Creatinin Ratio 0.19 02/22/21 Unknown Urine Sodium 11 mmol/L 02/22/21 Unknown Urine Total Protein 38 mg/dL (5-11.8) H 06/19/21 Unknown Blood Type A POSITIVE 02/24/21 12:15 Antibody Screen Negative 02/24/21 12:15 Lucero/IV: Voiding Method Urinal Active Medications - Current Medications Current Medications: Generic Name Dose Route Start Last Admin Trade Name Freq PRN Reason Stop Dose Admin Enoxaparin Sodium 70 mg 02/26/21 17:00 03/01/21 11:50 Enoxaparin 80 Mg/0.8 Ml Inj SUB-Q 70 mg Q12HR BULL Administration Hydrophilic Ointment 1 applic 02/25/21 09:43 02/27/21 17:44 Lip Therapy Vaseline TP 1 applic DIRECT PRN Administration Dry Lips Dextrose/Sodium Chloride 1,000 mls @ 125 mls/hr 02/27/21 05:00 03/01/21 05:35 D5/0.45ns IV 75 mls/hr DIRECT BULL Administration Magnesium Hydroxide 30 ml 02/28/21 14:00 03/01/21 11:50 Magnesium Hydroxide (Mom) Oral Liqd Udc PO 30 ml QDAY BULL Administration Metoprolol Tartrate 5 mg 02/27/21 14:00 03/01/21 05:35 Metoprolol Tartrate 5 Mg/5 Ml Inj IV 5 mg Q8H BULL Administration Ondansetron HCl 4 mg 02/22/21 11:29 02/23/21 02:43 Ondansetron 4 Mg/2 Ml Inj IV 4 mg Q6H PRN Administration N/V unrelieved by Reglan Oxycodone/Acetaminophen 1 tab 03/01/21 11:49 Oxycodone /Acetaminophen 5-325mg Tab PO Q4H PRN Pain, Moderate (4-6) Potassium Chloride 40 meq 03/01/21 12:23 Potassium Chloride Er 20 Meq Tab PO 03/01/21 12:24 ONCE ONE Nutrition/Malnutrition Assess - Dietary Evaluation Nutrition/Malnutrition Findings: Nutrition Notes Start: 02/24/21 11:22 Freq: Status: Active Protocol: Document 02/28/21 12:42 LM (Rec: 02/28/21 12:44 LM [id number]) Nutrition Notes Initial or Follow up Brief Note Current Diet NPO Weight Status Appropriate Subjective/Other Information Pt remains NPO. Nutrition Intervention Change Diet Order: Diet advancement when medically feasible Goal #1 Advance diet to meet nutrient needs Anticipated Discharge Needs: Unable to identify at this time Follow-Up By: 03/03/21 Additional Comments FU for diet advancement or plan of care - Malnutrition Assessment Minimum of two criteria: Yes
[2021-03-01] MEDS ORDERED: POTASSIUM CHLORIDE ER 20 MEQ TAB PO ONE (13:23)
[2021-03-02] MEDS: D5W/0.45% NACL 1,000 ML IV SCH (05:27)
[2021-03-02] MEDS: METOPROLOL TARTRATE 5 MG/5 ML INJ IV SCH (05:27)
[2021-03-02] MEDS: oxyCODONE /ACETAMINOPHEN 5-325MG TAB PO PRN ×2 (05:57→21:39)
--- NOTE | 2021-03-02 08:51 | Discharge Summary ---
Providers - Providers Date of Admission: 02/22/21 12:04 Attending physician: KRISTYN SKAGGS MD 02/22/21 10:31 Consult to Physician [CONS] Stat Comment: Consulting Provider: MADHURI VALDEZ Physician Instructions: Reason For Exam: SBO 02/22/21 10:53 Consult to Physician [CONS] Stat Comment: Consulting Provider: DEDE GILLETTE Physician Instructions: Reason For Exam: acute renal failure 02/25/21 17:14 Physical Therapy Evaluation and Treat [CONS] Routine Comment: Reason For Exam: weakness 02/26/21 00:34 Consult to Physician [CONS] Routine Comment: Consulting Provider: [facility] Physician Instructions: Reason For Exam: afib 02/26/21 10:19 Occupational Therapy Evaluate and Treat [CONS] Routine Comment: Reason For Exam: weakness Primary care physician: BODY COMPONENT ENGINEER Hospitalization Reason for admission: Small bowel obstruction Condition: Stable Hospital course: 65-year-old -[place] male with past medical history significant for aortic aneurysm repair, hypertension, penile implant presented to the emergency department with complaints of abdominal pain that started 4 days ago. Patient states the pain was sharp, 10 out of 10 intensity, with no radiation, no aggravating or alleviating factors identified, patient has associated persistent nausea and vomiting. She was not eating and drinking for the last 4 days. Patient did not have any bowel movement, could not pass gas. Patient is to call his vascular surgeon and told him to go to the emergency department, his vascular surgeon stated it is not a vascular problem. In the emergency department patient was hypotensive and was given bolus of IV fluids and blood pressure was corrected. CT abdomen and pelvis showed small bowel obstruction with transition point. General surgery was consulted. Patient has elevated BUN and creatinine and nephrology was consulted. Patient admitted to the floor for further evaluation and management. Management plan was discussed with the patient and was in agreement with the plan of care. 02/23/2021 -Blood pressure was low this morning and was given a bolus of normal saline. Continue with normal saline at 150 mL/h -Slight improvement in creatinine level, patient is hypokalemic and was given potassium -Nephrology consult appreciated -Patient was seen by general surgery and recommend NG tube decompression 02/24/2021 -FAN is improving, continue with IV fluids. Nephrology consult appreciated. -Abdominal x-ray this morning showed worsening of small bowel obstruction, patient was evaluated by general surgery and considering to do laparotomy and lysis of adhesion, will follow with the surgeon -Chest x-ray showed 1.7 cm mass on the right perihilar area, I ordered a CT chest without contrast -Urine culture is negative and I stop IV antibiotic 02/25: s/p EX LAP, Continue supportive care, Awaiting surgical re-evaluation, Renal function showing some improvement. Continue to monitor. 02/26: Noted tachycardia and hypotensive. Discussed with nursing staff, will give a bolus of fluids and obtain EKG. Patient is on metoprolol outpatient, will continue to hold. Renal function improving. 02/27: Patient yesterday noted to have Atrial fibrillation with RVR. Started on IV metoprolol and Enoxaparin. Will transfer to Telemetry. He remains on strict NPO . 02/28/21 patient seen and examined. Patient has 1 bowel movement. No nausea vomiting. Surgery ordered clear liquid diet from dinner. BUN 19 creatinine 0.9. Potassium 5.2. Continue current management. Recheck CBC BMP in the morning. PT evaluation 03/01/21 patient is seen and examined. Patient feels better. Patient has 1 Morel bowel movement. No nausea vomiting. Full liquid diet. Out of bed to chair. Potassium is 3.3. KCl 40 mg p.o. x1 dose. Continue current management. Discharge plan when cleared by surgery. PT evaluation 03/02: Patient continues to tolerate full liquid diet. No new complaints this morning bowel movement. No symptomatic bradycardia noted. I discussed changes to his medication including addition of Eliquis and side effects profile precautions including fall precautions patient verbalized understanding of also discussed dietary management including following surgeon's recommendation for advancement of diet and need to follow-up with the surgeon for removal of teresa he verbalized understanding. He will be discharged today if okay with the surgeon High-grade small bowel obstruction S/P Enterolysis Hypotension Acute renal failure secondary to vasomotor nephropathy History of aortic aneurysm repair Disposition: DC-30 STILL A PATIENT Final Discharge Diagnosis (Prints w/discharge instructions): Small bowel obstruction Time spent for discharge: 35 MINS Core Measure Documentation - Palliative Care Palliative Care/ Comfort Measures: Not Applicable - Core Measures Any of the following diagnoses?: none Exam - Physical Exam Narrative exam: Not in cardiopulmonary distress. The patient appeared well nourished and normally developed. Vital signs as documented. Head exam is unremarkable. No scleral icterus . Neck is without jugular venous distension, thyromegaly, or carotid bruits. Lungs are clear to auscultation. Cardiac exam reveals regular rate and Rhythm. Abdominal exam reveals normal bowel sounds, nontender, no organomegaly. Surgical teresa in place Extremities are nonedematous and both femoral and pedal pulses are normal. SCHEDULING CLERK: Alert and oriented 3. No focal weakness. - Constitutional Vitals: Temp Pulse Resp BP Pulse Ox 98.6 F 88 19 128/88 95 03/02/21 08:17 03/02/21 08:17 03/02/21 08:17 03/02/21 08:17 03/02/21 08:17 Plan Activity: advance as tolerated, fall precautions Diet: advance as tolerated (Per surgeon's direction) Wound: per your surgeon's advice, per wound nurse instructions Special Instructions: record daily weights, record daily BP diary Follow up with: PRIMARY CARE, [Primary Care Provider] - 3-5 Days MADHURI VALDEZ MD [Staff Physician] - 7 Days LUPE LACY MD [Staff Physician] - 7 Days Prescriptions: Apixaban [Eliquis] 5 mg PO Q12HR #60 tablet Metoprolol Xl [Metoprolol SUCCINATE ER TAB] 50 mg PO QDAY #30 tablet oxyCODONE /ACETAMINOPHEN [Percocet 5/325 mg] 1 tab PO Q4H PRN #14 tablet PRN Reason: Pain, Moderate (4-6) Sennosides Tab [Senokot] 8.6 mg PO BID #60 tablet
[2021-03-02] MEDS ORDERED: METOPROLOL SUCCINATE 50 MG PO SCH (10:00)
[2021-03-02] MEDS: APIXABAN 5 MG TAB PO SCH ×2 (10:11→21:39)
[2021-03-02] MEDS: MAGNESIUM HYDROXIDE (MOM) ORAL LIQD UDC PO SCH (10:11)
[2021-03-02] MEDS: METOPROLOL SUCCINATE XL 50 MG TAB PO SCH (10:11)
[2021-03-02 10:42] LABS: Hematocrit 38.2 % (35.5-45.6); Hemoglobin 13.6 gm/dl (11.8-15.2); Mean Corpuscular HGB Conc 36 % (32-34); Mean Corpuscular Volume 96 fl (84-94); Platelet Count 229 K/mm3 (140-440); Red Blood Count 3.96 M/mm3 (3.65-5.03); Red Cell Distribution Width 12.7 % (13.2-15.2)
[2021-03-02 10:56] LABS: INR 1.35 (0.87-1.13)
[2021-03-02 10:57] LABS: Partial Thromboplastin Time 36.3 Sec. (24.2-36.6)
[2021-03-03 08:27] VITALS: BP 128/88
[2021-03-03] MEDS: APIXABAN 5 MG TAB PO SCH (08:58)
[2021-03-03] MEDS: METOPROLOL SUCCINATE XL 50 MG TAB PO SCH (08:59)
[2021-03-03] MEDS: MAGNESIUM HYDROXIDE (MOM) ORAL LIQD UDC PO SCH (08:59)
--- NOTE | 2021-03-03 09:33 | Progress Note ---
Assessment and Plan Assessment: High Grade Small Bowel Obstruction FAN possibly 2/2 prerenal etiology in setting of vomiting and poor oral intake, hypotension, no obstruction Hypotension Hypokalemia Hx of AAA repair Plan: - Renal function reviewed, SCr level was 1.1 today, non-oliguric - On D5/1/2 NS infusion at 125 ml/hr - UA showed elevated rbc, no significant proteinuria, no urine eosinophils - No hydronephrosis noted on CT AP w/o contrast study on 02/22/21 - Renally dose medications - Avoid nephrotoxic agents - Obtain daily weights - Lucero Catheter: No - Renal plan reviewed by Dr. Samson Subjective Date of service: 03/03/21 Principal diagnosis: SBO, PAF with RVR Interval history: Patient seen lying in bed. Reviewed renal labs. No family at bedside. Objective - Vital Signs Vital signs: Vital Signs - 12hr 03/02/21 03/02/21 03/03/21 22:00 23:01 04:36 Temperature 98.6 F 98.4 F Pulse Rate 90 84 Respiratory 16 18 Rate Blood Pressure 124/84 127/92 O2 Sat by Pulse 97 Oximetry 03/03/21 08:00 Temperature 98.0 F Pulse Rate 62 Respiratory 16 Rate Blood Pressure 128/88 O2 Sat by Pulse 94 Oximetry - General Appearance General appearance: well-developed, appears stated age EENT: ATNC, PERRL, hearing intact, vision intact Neck: no JVD, supple Respiratory: Present: Decreased Breath Sounds Cardiology: S1S2 Gastrointestinal: normoactive bowel sounds Integumentary: warm and dry Neurologic: alert and oriented x3 Musculoskeletal: other (No edema) Psychiatric: cooperative - Lab 03/02/21 10:31 03/02/21 10:31 Most recent lab results Calcium 7.7 mg/dL (8.4-10.2) L 03/01/21 05:01 Phosphorus 5.40 mg/dL (2.5-4.5) H 02/23/21 05:24 Magnesium 2.30 mg/dL (1.7-2.3) 02/27/21 07:07 Urine Creatinine 198.5 mg/dL (0.1-20.0) H 02/22/21 Unknown Urine Sodium 11 mmol/L 02/22/21 Unknown Urine Total Protein 38 mg/dL (5-11.8) H 02/22/21 Unknown Medications & Allergies - Medications Allergies/Adverse Reactions: Allergies No Known Allergies Allergy (Verified 02/22/21 15:01) Home Medications: Home Medications Medication Instructions Recorded Confirmed Last Taken Type AtorvaSTATin 40 mg PO QHS 02/15/20 02/22/21 Unknown History Apixaban [Eliquis] 5 mg PO Q12HR #60 tablet 03/02/21 Unknown Rx Metoprolol Xl [Metoprolol 50 mg PO QDAY #30 tablet 03/02/21 Unknown Rx SUCCINATE ER TAB] Sennosides Tab [Senokot] 8.6 mg PO BID #60 tablet 03/02/21 Unknown Rx oxyCODONE /ACETAMINOPHEN [Percocet 1 tab PO Q4H PRN #14 tablet 03/02/21 Unknown Rx 5/325 mg] Active Medications: Generic Name Dose Route Start Last Admin Trade Name Freq PRN Reason Stop Dose Admin Apixaban 5 mg 03/02/21 10:00 03/03/21 08:58 Apixaban 5 Mg Tab PO 5 mg Q12HR BULL Administration Protocol Hydrophilic Ointment 1 applic 02/25/21 09:43 02/27/21 17:44 Lip Therapy Vaseline TP 1 applic DIRECT PRN Administration Dry Lips Dextrose/Sodium Chloride 1,000 mls @ 125 mls/hr 02/27/21 05:00 03/02/21 05:27 D5/0.45ns IV 75 mls/hr DIRECT BULL Administration Magnesium Hydroxide 30 ml 02/28/21 14:00 03/03/21 08:59 Magnesium Hydroxide (Mom) Oral Liqd Udc PO 30 ml QDAY BULL Administration Metoprolol Succinate 50 mg 03/02/21 10:00 03/03/21 08:59 Metoprolol Succinate Xl 50 Mg Tab PO 50 mg QDAY BULL Administration Ondansetron HCl 4 mg 02/22/21 11:29 02/23/21 02:43 Ondansetron 4 Mg/2 Ml Inj IV 4 mg Q6H PRN Administration N/V unrelieved by Baldomero Oxycodone/Acetaminophen 1 tab 03/01/21 11:49 03/02/21 21:39 Oxycodone /Acetaminophen 5-325mg Tab PO 1 tab Q4H PRN Administration Pain, Moderate (4-6)
--- NOTE | 2021-03-03 09:41 | Progress Note ---
Assessment and Plan Assessment and plan: 65-year-old -[place] male with past medical history significant for aortic aneurysm repair, hypertension, penile implant presented to the emergency department with complaints of abdominal pain that started 4 days ago. Patient states the pain was sharp, 10 out of 10 intensity, with no radiation, no aggravating or alleviating factors identified, patient has associated persistent nausea and vomiting. She was not eating and drinking for the last 4 days. Patient did not have any bowel movement, could not pass gas. Patient is to call his vascular surgeon and told him to go to the emergency department, his vascular surgeon stated it is not a vascular problem. In the emergency department patient was hypotensive and was given bolus of IV fluids and blood pressure was corrected. CT abdomen and pelvis showed small bowel obstruction with transition point. General surgery was consulted. Patient has elevated BUN and creatinine and nephrology was consulted. Patient admitted to the floor for further evaluation and management. Management plan was discussed with the patient and was in agreement with the plan of care. 02/23/2021 -Blood pressure was low this morning and was given a bolus of normal saline. Continue with normal saline at 150 mL/h -Slight improvement in creatinine level, patient is hypokalemic and was given potassium -Nephrology consult appreciated -Patient was seen by general surgery and recommend NG tube decompression 02/24/2021 -FAN is improving, continue with IV fluids. Nephrology consult appreciated. -Abdominal x-ray this morning showed worsening of small bowel obstruction, patient was evaluated by general surgery and considering to do laparotomy and lysis of adhesion, will follow with the surgeon -Chest x-ray showed 1.7 cm mass on the right perihilar area, I ordered a CT chest without contrast -Urine culture is negative and I stop IV antibiotic 02/25: s/p EX LAP, Continue supportive care, Awaiting surgical re-evaluation, Renal function showing some improvement. Continue to monitor. 02/26: Noted tachycardia and hypotensive. Discussed with nursing staff, will give a bolus of fluids and obtain EKG. Patient is on metoprolol outpatient, will continue to hold. Renal function improving. 02/27: Patient yesterday noted to have Atrial fibrillation with RVR. Started on IV metoprolol and Enoxaparin. Will transfer to Telemetry. He remains on strict N PO . 02/28/21 patient seen and examined. Patient has 1 bowel movement. No nausea vomiting. Surgery ordered clear liquid diet from dinner. BUN 19 creatinine 0.9. Potassium 5.2. Continue current management. Recheck CBC BMP in the morning. PT evaluation 03/01/21 patient is seen and examined. Patient feels better. Patient has 1 Morel bowel movement. No nausea vomiting. Full liquid diet. Out of bed to chair. Potassium is 3.3. KCl 40 mg p.o. x1 dose. Continue current management. Discharge plan when cleared by surgery. PT evaluation 03/02: Patient continues to tolerate full liquid diet. No new complaints this morning bowel movement. No symptomatic bradycardia noted. I discussed changes to his medication including addition of Eliquis and side effects profile precautions including fall precautions patient verbalized understanding of also discussed dietary management including following surgeon's recommendation for advancement of diet and need to follow-up with the surgeon for removal of teresa he verbalized understanding. He will be discharged today if okay with t awais surgeon 03/03: Patient discharged yesterday not sure why he is still here he does not know either nurse will contact surgeon today he reports that he continues to tolerate his diet did have bowel movement bowel sounds are noted. He still remembers our discussion on discharge will proceed with discharge as planned no new changes noted. High-grade small bowel obstruction S/P Enterolysis Hypotension Acute renal failure secondary to vasomotor nephropathy History of aortic aneurysm repair History Interval history: Patient was seen and evaluated this morning, no new complaints this morning tolerating diet still Hospitalist Physical - Physical exam Narrative exam: Not in cardiopulmonary distress. The patient appeared well nourished and normally developed. Vital signs as documented. Head exam is unremarkable. No scleral icterus . Neck is without jugular venous distension, thyromegaly, or carotid bruits. Lungs are clear to auscultation. Cardiac exam reveals regular rate and Rhythm. Abdominal exam reveals normal bowel sounds, nontender, no organomegaly. Surgical teresa in place Extremities are nonedematous and both femoral and pedal pulses are normal. INSTRUCTOR PAINTING: Alert and oriented 3. No focal weakness. - Constitutional Vitals: Temp Pulse Resp BP Pulse Ox 98.0 F 62 16 128/88 94 03/03/21 08:00 03/03/21 08:00 03/03/21 08:00 03/03/21 08:00 03/03/21 08:00 General appearance: Present: no acute distress HEART Score - HEART Score Troponin: Troponin T < 0.010 ng/mL (0.00-0.029) 02/27/21 07:07 Results - Labs CBC & Chem 7: 03/02/21 10:31 03/02/21 10:31 Labs: Laboratory Last Values WBC 8.5 K/mm3 (4.5-11.0) 03/02/21 10:31 RBC 3.96 M/mm3 (3.65-5.03) 03/02/21 10:31 Hgb 13.6 gm/dl (11.8-15.2) 03/02/21 10:31 Hct 38.2 % (35.5-45.6) 03/02/21 10:31 MCV 96 fl (84-94) H 03/02/21 10:31 MCH 34 pg (28-32) H 03/02/21 10:31 MCHC 36 % (32-34) H 03/02/21 10:31 RDW 12.7 % (13.2-15.2) L 03/02/21 10:31 Plt Count 229 K/mm3 (140-440) 03/02/21 10:31 Lymph % (Auto) 15.2 % (13.4-35.0) 03/01/21 05:01 Surry % (Auto) 11.8 % (0.0-7.3) H 03/01/21 05:01 Eos % (Auto) 4.0 % (0.0-4.3) 03/01/21 05:01 Baso % (Auto) 0.4 % (0.0-1.8) 03/01/21 05:01 Lymph # (Auto) 1.4 K/mm3 (1.2-5.4) 03/01/21 05:01 [place]ry # (Auto) 1.1 K/mm3 (0.0-0.8) H 03/01/21 05:01 Eos # (Auto) 0.4 K/mm3 (0.0-0.4) 03/01/21 05:01 Baso # (Auto) 0.0 K/mm3 (0.0-0.1) 03/01/21 05:01 Add Manual Diff Complete 02/22/21 08:21 Total Counted 100 02/22/21 08:21 Seg Neutrophils % 68.6 % (40.0-70.0) 03/01/21 05:01 Seg Neuts % (Manual) 81.0 % (40.0-70.0) H 02/22/21 08:21 Lymphocytes % (Manual) 6.0 % (13.4-35.0) L 02/22/21 08:21 Monocytes % (Manual) 12.0 % (0.0-7.3) H 02/22/21 08:21 Eosinophils % (Manual) 1.0 % (0.0-4.3) 02/22/21 08:21 Nucleated RBC % Not Reportable 02/22/21 08:21 Seg Neutrophils # 6.2 K/mm3 (1.8-7.7) 03/01/21 05:01 Seg Neutrophils # Man 7.0 K/mm3 (1.8-7.7) 02/22/21 08:21 Band Neutrophils # 0.0 K/mm3 02/22/21 08:21 Lymphocytes # (Manual) 0.5 K/mm3 (1.2-5.4) L 02/22/21 08:21 Abs React Lymphs (Man) 0.0 K/mm3 02/22/21 08:21 Monocytes # (Manual) 1.0 K/mm3 (0.0-0.8) H 02/22/21 08:21 Eosinophils # (Manual) 0.1 K/mm3 (0.0-0.4) 02/22/21 08:21 Basophils # (Manual) 0.0 K/mm3 (0.0-0.1) 02/22/21 08:21 Metamyelocytes # 0.0 K/mm3 02/22/21 08:21 Myelocytes # 0.0 K/mm3 02/22/21 08:21 Promyelocytes # 0.0 K/mm3 02/22/21 08:21 Blast Cells # 0.0 K/mm3 02/22/21 08:21 WBC Morphology Not Reportable 02/22/21 08:21 WBC Morphology TNR 02/22/21 08:21 Hypersegmented Neuts Not Reportable 02/22/21 08:21 Hyposegmented Neuts Not Reportable 02/22/21 08:21 Hypogranular Neuts Not Reportable 02/22/21 08:21 Smudge Cells Not Reportable 02/22/21 08:21 Toxic Granulation Not Reportable 02/22/21 08:21 Toxic Vacuolation Not Reportable 02/22/21 08:21 Dohle Bodies Not Reportable 02/22/21 08:21 Pelger-Huet Anomaly Not Reportable 02/22/21 08:21 An Rods Not Reportable 02/22/21 08:21 Platelet Estimate Consistent w auto 02/22/21 08:21 Clumped Platelets Not Reportable 02/22/21 08:21 Plt Clumps, EDTA Not Reportable 02/22/21 08:21 Large Platelets Not Reportable 02/22/21 08:21 Giant Platelets Not Reportable 02/22/21 08:21 Platelet Satelliting Not Reportable 02/22/21 08:21 Plt Morphology Comment Not Reportable 02/22/21 08:21 RBC Morphology Not Reportable 02/22/21 08:21 Dimorphic RBCs Not Reportable 02/22/21 08:21 Polychromasia Not Reportable 02/22/21 08:21 Hypochromasia Not Reportable 02/22/21 08:21 Poikilocytosis Not Reportable 02/22/21 08:21 Anisocytosis Not Reportable 02/22/21 08:21 Microcytosis Not Reportable 02/22/21 08:21 Macrocytosis Not Reportable 02/22/21 08:21 Spherocytes Not Reportable 02/22/21 08:21 Pappenheimer Bodies Not Reportable 02/22/21 08:21 Sickle Cells Not Reportable 02/22/21 08:21 Target Cells Not Reportable 02/22/21 08:21 Tear Drop Cells Not Reportable 02/22/21 08:21 Ovalocytes Not Reportable 02/22/21 08:21 Helmet Cells Not Reportable 02/22/21 08:21 Wood-Adeline Bodies Not Reportable 02/22/21 08:21 Pavilion Rings Not Reportable 02/22/21 08:21 Sandy Cells Few 02/22/21 08:21 Bite Cells Not Reportable 02/22/21 08:21 Crenated Cell Not Reportable 02/22/21 08:21 Elliptocytes Few 02/22/21 08:21 Acanthocytes (Spur) Not Reportable 02/22/21 08:21 Rouleaux Not Reportable 02/22/21 08:21 Hemoglobin C Crystals Not Reportable 02/22/21 08:21 Schistocytes Rare 02/22/21 08:21 Malaria parasites Not Reportable 02/22/21 08:21 Jermain Bodies Not Reportable 02/22/21 08:21 Hem Pathologist Commnt No 02/22/21 08:21 PT 17.3 Sec. (12.2-14.9) H 03/02/21 10:31 INR 1.35 (0.87-1.13) H 03/02/21 10:31 APTT 36.3 Sec. (24.2-36.6) 03/02/21 10:31 Sodium 141 mmol/L (137-145) 03/01/21 05:01 Potassium 3.3 mmol/L (3.6-5.0) L D 03/01/21 05:01 Chloride 105.1 mmol/L (98-107) 03/01/21 05:01 Carbon Dioxide 29 mmol/L (22-30) 03/01/21 05:01 Anion Gap 10 mmol/L 03/01/21 05:01 BUN 14 mg/dL (9-20) 03/01/21 05:01 Creatinine 1.1 mg/dL (0.8-1.3) 03/02/21 10:31 Estimated GFR > 60 ml/min 03/02/21 10:31 BUN/Creatinine Ratio 16 % 03/01/21 05:01 Glucose 107 mg/dL (75-100) H 03/01/21 05:01 POC Glucose 82 mg/dL (70-105) 02/28/21 12:24 Calcium 7.7 mg/dL (8.4-10.2) L 03/01/21 05:01 Phosphorus 5.40 mg/dL (2.5-4.5) H 02/23/21 05:24 Magnesium 2.30 mg/dL (1.7-2.3) 02/27/21 07:07 Total Bilirubin 0.80 mg/dL (0.1-1.2) 02/22/21 08:21 Direct Bilirubin 0.2 mg/dL (0-0.2) 02/22/21 08:21 Indirect Bilirubin 0.6 mg/dL 02/22/21 08:21 AST 16 units/L (5-40) 02/22/21 08:21 ALT 9 units/L (7-56) 02/22/21 08:21 Alkaline Phosphatase 72 units/L (35-129) 02/22/21 08:21 Troponin T < 0.010 ng/mL (0.00-0.029) 02/27/21 07:07 Total Protein 8.0 g/dL (6.3-8.2) 02/22/21 08:21 Albumin 4.3 g/dL (3.9-5) 02/22/21 08:21 Albumin/Globulin Ratio 1.2 % 02/22/21 08:21 Lipase 18 units/L (13-60) 02/22/21 08:21 Urine Color Bianca (Yellow) 02/22/21 09:23 Urine Turbidity Cloudy (Clear) 02/22/21 09:23 Urine pH 5.0 (5.0-7.0) 02/22/21 09:23 Ur Specific [place] 1.017 (1.003-1.030) 02/22/21 09:23 Urine Protein 100 mg/dl mg/dL (Negative) 02/22/21 09:23 Urine Glucose (UA) Neg mg/dL (Negative) 02/22/21 09:23 Urine Ketones Neg mg/dL (Negative) 02/22/21 09:23 Urine Blood Mod (Negative) 02/22/21 09:23 Urine Nitrite Neg (Negative) 02/22/21 09:23 Urine Bilirubin Neg (Negative) 02/22/21 09:23 Urine Urobilinogen 2.0 mg/dL (<2.0) 02/22/21 09:23 Ur Leukocyte Esterase Neg (Negative) 02/22/21 09:23 Urine WBC (Auto) 9.0 /HPF (0.0-6.0) H 02/22/21 09:23 Urine RBC (Auto) 10.0 /HPF (0.0-6.0) 02/22/21 09:23 U Epithel Cells (Auto) 2.0 /HPF (0-13.0) 02/22/21 09:23 Hyaline Casts 23 /LPF 02/22/21 09:23 Urine Mucus 2+ /HPF 02/22/21 09:23 Urine Eosinophils None seen (None Seen) 02/22/21 Unknown Urine Creatinine 198.5 mg/dL (0.1-20.0) H 02/22/21 Unknown Urine Microalbumin 2.6 mg/dL (0.1-34.0) 02/22/21 Unknown Microalb/Creat Ratio 13.0 ug/mg 02/22/21 Unknown Protein/Creatinin Ratio 0.19 02/22/21 Unknown Urine Sodium 11 mmol/L 02/22/21 Unknown Urine Total Protein 38 mg/dL (5-11.8) H 02/22/21 Unknown Blood Type A POSITIVE 02/24/21 12:15 Antibody Screen Negative 02/24/21 12:15 Lucero/IV: Voiding Method Urinal Active Medications - Current Medications Current Medications: Generic Name Dose Route Start Last Admin Trade Name Freq PRN Reason Stop Dose Admin Apixaban 5 mg 03/02/21 10:00 03/03/21 08:58 Apixaban 5 Mg Tab PO 5 mg Q12HR BULL Administration Protocol Hydrophilic Ointment 1 applic 02/25/21 09:43 02/27/21 17:44 Lip Therapy Vaseline TP 1 applic DIRECT PRN Administration Dry Lips Dextrose/Sodium Chloride 1,000 mls @ 125 mls/hr 02/27/21 05:00 03/02/21 05:27 D5/0.45ns IV 75 mls/hr DIRECT BULL Administration Magnesium Hydroxide 30 ml 02/28/21 14:00 03/03/21 08:59 Magnesium Hydroxide (Mom) Oral Liqd Udc PO 30 ml QDAY BULL Administration Metoprolol Succinate 50 mg 03/02/21 10:00 03/03/21 08:59 Metoprolol Succinate Xl 50 Mg Tab PO 50 mg QDAY BULL Administration Ondansetron HCl 4 mg 02/22/21 11:29 02/23/21 02:43 Ondansetron 4 Mg/2 Ml Inj IV 4 mg Q6H PRN Administration N/V unrelieved by Reglan Oxycodone/Acetaminophen 1 tab 03/01/21 11:49 03/02/21 21:39 Oxycodone /Acetaminophen 5-325mg Tab PO 1 tab Q4H PRN Administration Pain, Moderate (4-6) Nutrition/Malnutrition Assess - Dietary Evaluation Nutrition/Malnutrition Findings: Nutrition Notes Start: 02/24/21 11: 22 Freq: Status: Active Protocol: Document 02/28/21 12:42 LM (Rec: 02/28/21 12:44 LM [id number]) Nutrition Notes Initial or Follow up Brief Note Current Diet NPO Weight Status Appropriate Subjective/Other Information Pt remains NPO. Nutrition Intervention Change Diet Order: Diet advancement when medically feasible Goal #1 Advance diet to meet nutrient needs Anticipated Discharge Needs: Unable to identify at this time Follow-Up By: 03/03/21 Additional Comments FU for diet advancement or plan of care
--- NOTE | 2021-03-03 13:14 | Progress Note ---
Assessment and Plan - Patient Problems (1) SBO (small bowel obstruction) Current Visit: Yes Status: Acute Plan to address problem: 1) SBO - resolved 2) Okay for discharge 3) F/u in my office in one week Subjective Date of service: 03/03/21 Patient Reports: Positive: no new complaints, tolerating a regular diet, flatus, bowel movement Objective Vital Signs - 12hr 03/03/21 03/03/21 04:36 08:00 Temperature 98.4 F 98.0 F Pulse Rate 84 62 Respiratory 18 16 Rate Blood Pressure 127/92 128/88 O2 Sat by Pulse 97 94 Oximetry - Abdomen soft, bowel sounds normal (NT, ND) - Labs 03/02/21 10:31 03/02/21 10:31
--- NOTE | 2021-03-03 13:18 | Progress Note ---
Assessment and Plan A. fib with RVR * Continue rate control with metoprolol XL 50 mg daily * Anticoagulation with Eliquis 5 mg twice daily DVT prophylaxis * Lovenox SQ Patient is currently stable cardiac status. Patient may discharge from cardiology standpoint. Will follow on as-needed basis Patient should follow-up with Dr. Maggie Wynne in our [place] location on 03/28/2021 at 1:30 PM. #[phone] This patient was seen in conjunction with Dr Dunlap who agrees with assessment and plan of care - Patient Problems (1) Atrial fibrillation with RVR Current Visit: Yes Status: Chronic (2) SBO (small bowel obstruction) Current Visit: Yes Status: Acute (3) S/P AAA (abdominal aortic aneurysm) repair Current Visit: Yes Status: Chronic (4) DVT prophylaxis Current Visit: Yes Status: Acute (5) HTN (hypertension) Current Visit: Yes Status: Chronic Qualifiers: Qualified Code(s): I10 - Essential (primary) hypertension Subjective Date of service: 03/03/21 Principal diagnosis: SBO, PAF with RVR Interval history: Telemetry reviewed: Atrial fib 70s. No events Objective Last Vital Signs Temp 98.0 F 03/03/21 08:00 Pulse 62 03/03/21 08:00 Resp 16 03/03/21 08:00 BP 128/88 03/03/21 08:00 Pulse Ox 94 03/03/21 08:00 - Physical Examination General: No Apparent Distress HEENT: Positive: EOMI, Normocephaly, Mucus Membranes Moist Neck: Positive: neck supple, trachea midline Cardiac: Positive: irregularly irregular, S1/S2 Lungs: Positive: Normal Exam, Normal Breath Sounds Neuro: Positive: Grossly Intact Abdomen: Positive: Other (NGT in situ) Skin: Negative: Rash Musculoskeletal: No Pain Extremities: Present: upper extr. pulses, lower extr. pulses. Absent: edema - Imaging and Cardiology EKG: report reviewed, image reviewed Echo: report reviewed (02/26/2021 - EF 50-55%, mild pulm HTN, mild TR) - Telemetry EKG Rhythm: Atrial Fibrillation - EKG Sinus rhythms and dysrhythmias: sinus rhythm
== END 2021-03-03 14:50 | disposition home or self-care (01) | DRG 335 ==
LOC: ED 07:40 → 3A 12:04 → 4A 02-27 15:00
PROVIDERS: ADMIT Internal Medicine; ATTEND Internal Medicine
PROC: 0D9670Z Drainage of Stomach with Drainage Device, Via Natural or Artificial Opening (ICD-10-PCS; 2021-02-22)
PROC: 0DN80ZZ Release Small Intestine, Open Approach (ICD-10-PCS; principal; 2021-02-24)
DX: K56.50 Intestinal adhesions [bands], unspecified as to partial versus complete obstruction (principal); N17.0 Acute kidney failure with tubular necrosis; E87.6 Hypokalemia; I48.0 Paroxysmal atrial fibrillation; I10 Essential (primary) hypertension; I71.4 Abdominal aortic aneurysm, without rupture; E86.0 Dehydration; E78.00 Pure hypercholesterolemia, unspecified; K21.9 Gastro-esophageal reflux disease without esophagitis; I73.9 Peripheral vascular disease, unspecified; I95.9 Hypotension, unspecified; E78.2 Mixed hyperlipidemia
CPT/HCPCS: 36415; 71250; 74019; 74176; 80048; 80076; 81001; 82043; 82565; 82570; 82962; 83690; 83735; 84100; 84156; 84300; 84484; 85007; 85025; 85027; 85610; 85730; 86850; 86900; 86901; 87086; 89050; 93005; 93306; 96374; 96375; G0378; J0330; J0690; J0696; J1170; J1650; J2270; J2370; J2405; J2704; J2710; J3480; J7030; J7040; J7120